=== PATIENT | female | born 1940 | race Caucasian/White ===

== ENCOUNTER 2016-05-01 | Outpatient (CLI) | payer MEDICARE, OTHER | END 2016-05-01 13:02 | disposition critical access hospital (66) | CPT/HCPCS: A0425; A0429 ==

== ENCOUNTER 2016-05-01 13:23 | Emergency (ER) | payer MEDICARE, OTHER ==
[2016-05-01] MEDS ORDERED: diltiaZEM INJ 5 MG/ML VIAL IVP STA (13:35)
[2016-05-01] MEDS ORDERED: PROCAINAMIDE 1,000 MG in SODIUM CHLORIDE 0.9% 240 ML IV STA (13:35)
[2016-05-01] MEDS ORDERED: diltiaZEM INJ 5 MG/ML VIAL ONE (13:45)
== END 2016-05-01 15:32 | disposition home or self-care (01) ==
DX: I48.0 Paroxysmal atrial fibrillation (principal); R47.81 Slurred speech; I25.10 Atherosclerotic heart disease of native coronary artery without angina pectoris; I10 Essential (primary) hypertension; J45.909 Unspecified asthma, uncomplicated; Z79.02 Long term (current) use of antithrombotics/antiplatelets; Z95.5 Presence of coronary angioplasty implant and graft; Z79.82 Long term (current) use of aspirin

== ENCOUNTER 2016-06-03 13:39 | Outpatient (CLI) | payer MEDICARE, OTHER | END 2016-06-03 13:40 | disposition home or self-care (01) | DX: I48.91 Unspecified atrial fibrillation (principal) ==

== ENCOUNTER 2016-06-06 10:16 | Outpatient (CLI) | payer MEDICARE, OTHER | END 2016-06-06 10:17 | disposition home or self-care (01) | DX: I48.91 Unspecified atrial fibrillation (principal) ==

== ENCOUNTER 2016-06-09 09:51 | Outpatient (CLI) | payer MEDICARE, OTHER | END 2016-06-09 09:52 | disposition home or self-care (01) | DX: I48.91 Unspecified atrial fibrillation (principal) ==

== ENCOUNTER 2016-06-22 13:03 | Outpatient (CLI) | payer MEDICARE, OTHER | END 2016-06-22 13:04 | DX: I48.91 Unspecified atrial fibrillation (principal) ==

== ENCOUNTER 2016-06-23 09:25 | Outpatient (CLI) | payer MEDICARE, OTHER | END 2016-06-23 09:26 | disposition home or self-care (01) | DX: I48.91 Unspecified atrial fibrillation (principal) ==

== ENCOUNTER 2016-08-04 08:00 | Outpatient (CLI) | payer MEDICARE, OTHER | END 2016-08-04 23:59 | LOC: LAB.N 08:00 | PROVIDERS: ATTEND Family Medicine | DX: I48.91 Unspecified atrial fibrillation (principal) | CPT/HCPCS: 85610 ==

== ENCOUNTER 2016-08-11 10:24 | Outpatient (CLI) | payer MEDICARE, OTHER | END 2016-08-11 10:25 | disposition home or self-care (01) | DX: E78.5 Hyperlipidemia, unspecified (principal); I10 Essential (primary) hypertension; I48.91 Unspecified atrial fibrillation; I25.10 Atherosclerotic heart disease of native coronary artery without angina pectoris ==

== ENCOUNTER 2016-08-15 08:00 | Outpatient (CLI) | payer MEDICARE, OTHER | END 2016-08-15 08:01 | disposition home or self-care (01) | LOC: LAB.N 08:00 | PROVIDERS: ATTEND Family Medicine | DX: I48.91 Unspecified atrial fibrillation (principal) | CPT/HCPCS: 85610 ==

== ENCOUNTER 2016-08-23 08:00 | Outpatient (CLI) | payer MEDICARE, OTHER | END 2016-08-23 08:01 | disposition home or self-care (01) | LOC: LAB.N 08:00 | PROVIDERS: ATTEND Family Medicine | DX: I48.91 Unspecified atrial fibrillation (principal) | CPT/HCPCS: 85610 ==

== ENCOUNTER 2016-08-26 08:10 | Outpatient (CLI) | payer MEDICARE, OTHER | END 2016-08-26 08:11 | disposition home or self-care (01) | DX: I48.91 Unspecified atrial fibrillation (principal) ==

== ENCOUNTER 2016-09-02 07:49 | Outpatient (CLI) | payer MEDICARE, OTHER | END 2016-09-02 07:50 | disposition home or self-care (01) | LOC: LAB.N 07:49 | PROVIDERS: ATTEND Family Medicine | DX: I48.91 Unspecified atrial fibrillation (principal) | CPT/HCPCS: 85610 ==

== ENCOUNTER 2016-09-09 08:06 | Outpatient (CLI) | payer MEDICARE, OTHER | END 2016-09-09 08:07 | disposition home or self-care (01) | LOC: LAB.N 08:06 | PROVIDERS: ATTEND Family Medicine | DX: I48.91 Unspecified atrial fibrillation (principal) | CPT/HCPCS: 85610 ==

== ENCOUNTER 2016-09-23 07:47 | Outpatient (CLI) | payer MEDICARE, OTHER | END 2016-09-23 07:48 | disposition home or self-care (01) | LOC: LAB.N 07:47 | PROVIDERS: ATTEND Family Medicine | DX: I48.91 Unspecified atrial fibrillation (principal) | CPT/HCPCS: 85610 ==

== ENCOUNTER 2016-10-21 08:40 | Outpatient (CLI) | payer MEDICARE, OTHER | END 2016-10-21 08:41 | disposition home or self-care (01) | LOC: LAB.N 08:40 | PROVIDERS: ATTEND Family Medicine | DX: I48.91 Unspecified atrial fibrillation (principal) | CPT/HCPCS: 85610 ==

== ENCOUNTER 2016-10-28 10:48 | Outpatient (CLI) | payer MEDICARE, OTHER | END 2016-10-28 10:49 | disposition home or self-care (01) | LOC: LAB.N 10:48 | PROVIDERS: ATTEND Family Medicine | DX: I48.91 Unspecified atrial fibrillation (principal) | CPT/HCPCS: 85610 ==

== ENCOUNTER 2016-11-16 08:08 | Outpatient (CLI) | payer MEDICARE, OTHER ==
[2016-11-16 12:23] LABS: BASOPHILS # (AUTO) 0.1 10^3/uL (0.0-0.1); BASOPHILS % (AUTO) 1.1 %; EOSINOPHILS # (AUTO) 0.2 10^3/uL (0.0-0.7); EOSINOPHILS % (AUTO) 3.5 %; HCT - HEMATOCRIT 35.7 % (37.0-47.0); HGB - HEMOGLOBIN 11.5 g/dL (12.0-16.0); LYMPHOCYTES # (AUTO) 0.6 10^3/uL (1.5-3.5); LYMPHOCYTES % (AUTO) 11.2 %; MEAN CORPUSCULAR HEMOGLOBIN 26.8 pg (27.0-31.0); MEAN CORPUSCULAR HGB CONC 32.3 g/dL (32.0-36.0); MEAN CORPUSCULAR VOLUME 82.9 fL (81.0-99.0); MEAN PLATELET VOLUME 8.8 fL (7.9-10.8); MONOCYTES # (AUTO) 0.6 10^3/uL (0.0-1.0); MONOCYTES % (AUTO) 11.4 %; NEUTROPHILS % (AUTO) 72.8 %; RED CELL DISTRIBUTION WIDTH 16.9 % (12.0-15.0); UNCORRECTED WHITE BLOOD COUNT 5.5 x10^3/uL; WHITE BLOOD COUNT 5.5 x10^3/uL (4.8-10.8)
[2016-11-16 12:58] LABS: ALBUMIN/GLOBULIN RATIO 1.4 (1.0-2.2); BILIRUBIN,TOTAL 0.7 mg/dL (0.2-1.0); BUN - BLOOD UREA NITROGEN 25 mg/dL (6-20); CALCIUM 8.9 mg/dL (8.5-10.3); CARBON DIOXIDE - CO2 25 mmol/L (21-32); CHLORIDE 109 mmol/L (101-111); CHOL/HDL RATIO 2.1 (<4.4); CHOLESTEROL 169 mg/dL; CREATININE 1.2 mg/dL (0.4-1.0); GFR - MDRD 43 (>89); GLUCOSE 93 mg/dL (70-100); HDL CHOLESTEROL 82 mg/dL; LDL/HDL RATIO 0.9 (<4.4); POTASSIUM 4.6 mmol/L (3.5-5.0); SODIUM 140 mmol/L (135-145); TOTAL PROTEIN 6.4 g/dL (6.7-8.2); TRIGLYCERIDES 73 mg/dL; VLDL CHOLESTEROL 15 mg/dL
[2016-11-16 13:26] LABS: THYROID STIMULATING HORMONE 18.61 uIU/mL (0.34-5.60)
== END 2016-11-16 08:09 | disposition home or self-care (01) ==
LOC: LAB.N 08:08
PROVIDERS: ATTEND Family Medicine
DX: E78.5 Hyperlipidemia, unspecified (principal)
CPT/HCPCS: 36415; 80053; 80061; 84439; 84443; 85025

== ENCOUNTER 2017-01-06 11:50 | Outpatient (CLI) | payer MEDICARE, OTHER | END 2017-01-06 11:51 | disposition home or self-care (01) | LOC: LAB.N 11:50 | PROVIDERS: ATTEND Family Medicine | DX: I48.91 Unspecified atrial fibrillation (principal) | CPT/HCPCS: 85610 ==

== ENCOUNTER 2017-01-25 14:54 | Outpatient (CLI) | payer MEDICARE, OTHER ==
[2017-01-25 13:50] LABS: ALBUMIN/GLOBULIN RATIO 1.3 (1.0-2.2); BILIRUBIN,TOTAL 0.7 mg/dL (0.2-1.0); BUN - BLOOD UREA NITROGEN 21 mg/dL (6-20); CALCIUM 9.1 mg/dL (8.5-10.3); CARBON DIOXIDE - CO2 25 mmol/L (21-32); CHLORIDE 104 mmol/L (101-111); CHOL/HDL RATIO 1.9 (<4.4); CHOLESTEROL 192 mg/dL; CREATININE 1.4 mg/dL (0.4-1.0); GFR - MDRD 36 (>89); GLUCOSE 81 mg/dL (70-100); HDL CHOLESTEROL 102 mg/dL; LDL/HDL RATIO 0.8 (<4.4); POTASSIUM 3.6 mmol/L (3.5-5.0); SODIUM 139 mmol/L (135-145); TOTAL PROTEIN 6.7 g/dL (6.7-8.2); TRIGLYCERIDES 58 mg/dL; VLDL CHOLESTEROL 12 mg/dL
[2017-01-25 14:58] LABS: THYROID STIMULATING HORMONE 72.21 uIU/mL (0.34-5.60)
== END 2017-01-25 14:55 | disposition home or self-care (01) ==
LOC: LAB.N 14:54
PROVIDERS: ATTEND Family Medicine
DX: E03.9 Hypothyroidism, unspecified (principal); I25.10 Atherosclerotic heart disease of native coronary artery without angina pectoris; I48.91 Unspecified atrial fibrillation
CPT/HCPCS: 36415; 80053; 80061; 84439; 84443; 86800

== ENCOUNTER 2017-02-24 10:04 | Outpatient (CLI) | payer MEDICARE, OTHER | END 2017-02-24 10:05 | disposition home or self-care (01) | LOC: LAB.N 10:04 | PROVIDERS: ATTEND Family Medicine | DX: I48.91 Unspecified atrial fibrillation (principal) | CPT/HCPCS: 85610 ==

== ENCOUNTER 2017-03-31 08:00 | Outpatient (CLI) | payer MEDICARE, OTHER | END 2017-03-31 08:01 | disposition home or self-care (01) | LOC: LAB.N 08:00 | PROVIDERS: ATTEND Family Medicine | DX: E87.6 Hypokalemia (principal); I48.91 Unspecified atrial fibrillation | CPT/HCPCS: 36415; 84132; 85610 ==

== ENCOUNTER 2017-05-11 08:37 | Outpatient (CLI) | payer MEDICARE, OTHER | END 2017-05-11 08:38 | disposition home or self-care (01) | LOC: LAB.N 08:37 | PROVIDERS: ATTEND Family Medicine | DX: I48.91 Unspecified atrial fibrillation (principal) | CPT/HCPCS: 85610 ==

== ENCOUNTER 2017-07-04 08:00 | Outpatient (CLI) | payer MEDICARE, OTHER ==
[2017-07-04 12:22] LABS: BASOPHILS # (AUTO) 0.1 10^3/uL (0.0-0.1); BASOPHILS % (AUTO) 2.4 %; EOSINOPHILS # (AUTO) 0.2 10^3/uL (0.0-0.7); EOSINOPHILS % (AUTO) 4.3 %; HGB - HEMOGLOBIN 10.7 g/dL (12.0-16.0); LYMPHOCYTES # (AUTO) 0.5 10^3/uL (1.5-3.5); LYMPHOCYTES % (AUTO) 13.2 %; MEAN CORPUSCULAR HEMOGLOBIN 26.3 pg (27.0-31.0); MEAN CORPUSCULAR HGB CONC 32.8 g/dL (32.0-36.0); MEAN CORPUSCULAR VOLUME 80.1 fL (81.0-99.0); MEAN PLATELET VOLUME 8.5 fL (7.9-10.8); MONOCYTES # (AUTO) 0.4 10^3/uL (0.0-1.0); MONOCYTES % (AUTO) 11.1 %; NEUTROPHILS # (AUTO) 2.8 10^3/uL (1.5-6.6); PLT - PLATELET COUNT 213 10^3/uL (130-450); RED BLOOD COUNT 4.06 10^6/uL (4.20-5.40); RED CELL DISTRIBUTION WIDTH 18.1 % (12.0-15.0)
[2017-07-04 12:31] LABS: ALBUMIN 3.8 g/dL (3.2-5.5); ALBUMIN/GLOBULIN RATIO 1.4 (1.0-2.2); BILIRUBIN,TOTAL 0.7 mg/dL (0.2-1.0); CALCIUM 8.5 mg/dL (8.5-10.3); CREATININE 1.3 mg/dL (0.4-1.0); TOTAL PROTEIN 6.5 g/dL (6.7-8.2)
== END 2017-07-04 08:01 ==
LOC: LAB.N 08:00
PROVIDERS: ATTEND Family Medicine
DX: E03.9 Hypothyroidism, unspecified (principal); I48.91 Unspecified atrial fibrillation
CPT/HCPCS: 36415; 80053; 84443; 84481; 85025; 85610

== ENCOUNTER 2017-08-09 08:53 | Outpatient (CLI) | payer MEDICARE, OTHER | END 2017-08-09 08:54 | LOC: LAB.N 08:53 | PROVIDERS: ATTEND Family Medicine | DX: I48.91 Unspecified atrial fibrillation (principal) | CPT/HCPCS: 85610 ==

== ENCOUNTER 2017-08-16 09:07 | Outpatient (CLI) | payer MEDICARE, OTHER | END 2017-08-16 09:08 | LOC: LAB.N 09:07 | PROVIDERS: ATTEND Family Medicine | DX: I48.91 Unspecified atrial fibrillation (principal) | CPT/HCPCS: 85610 ==

== ENCOUNTER 2017-09-21 10:39 | Outpatient (CLI) | payer MEDICARE, OTHER | END 2017-09-21 10:40 | disposition home or self-care (01) | LOC: LAB.N 10:39 | PROVIDERS: ATTEND Family Medicine | DX: I48.91 Unspecified atrial fibrillation (principal) | CPT/HCPCS: 85610 ==

== ENCOUNTER 2017-10-04 13:15 | Outpatient (CLI) | payer MEDICARE, OTHER ==
[2017-10-04 19:15] LABS: BASOPHILS # (AUTO) 0.1 10^3/uL (0.0-0.1); BASOPHILS % (AUTO) 1.5 %; EOSINOPHILS # (AUTO) 0.1 10^3/uL (0.0-0.7); EOSINOPHILS % (AUTO) 2.9 %; HGB - HEMOGLOBIN 10.6 g/dL (12.0-16.0); LYMPHOCYTES # (AUTO) 0.5 10^3/uL (1.5-3.5); LYMPHOCYTES % (AUTO) 11.3 %; MEAN CORPUSCULAR HEMOGLOBIN 26.3 pg (27.0-31.0); MEAN CORPUSCULAR HGB CONC 31.4 g/dL (32.0-36.0); MEAN CORPUSCULAR VOLUME 83.7 fL (81.0-99.0); MEAN PLATELET VOLUME 8.8 fL (7.9-10.8); MONOCYTES # (AUTO) 0.5 10^3/uL (0.0-1.0); MONOCYTES % (AUTO) 10.4 %; NEUTROPHILS # (AUTO) 3.3 10^3/uL (1.5-6.6); NEUTROPHILS % (AUTO) 73.9 %; PLT - PLATELET COUNT 238 10^3/uL (130-450); RED BLOOD COUNT 4.02 10^6/uL (4.20-5.40); RED CELL DISTRIBUTION WIDTH 16.8 % (12.0-15.0); WHITE BLOOD COUNT 4.5 x10^3/uL (4.8-10.8)
[2017-10-04 19:42] LABS: ALBUMIN 3.6 g/dL (3.2-5.5); ALBUMIN/GLOBULIN RATIO 1.3 (1.0-2.2); ALKALINE PHOSPHATASE 69 IU/L (42-121); ALT ALANINE AMINOTRANSFERASE 19 IU/L (10-60); AST ASPARTATE AMINOTRANSFERASE 24 IU/L (10-42); BILIRUBIN,TOTAL 0.7 mg/dL (0.2-1.0); BUN - BLOOD UREA NITROGEN 33 mg/dL (6-20); CALCIUM 8.8 mg/dL (8.5-10.3); CARBON DIOXIDE - CO2 25 mmol/L (21-32); CHLORIDE 105 mmol/L (101-111); CHOL/HDL RATIO 1.9 (<4.4); CHOLESTEROL 160 mg/dL; CREATININE 1.4 mg/dL (0.4-1.0); GFR - MDRD 36 (>89); GLUCOSE 85 mg/dL (70-100); HDL CHOLESTEROL 86 mg/dL; LDL CHOLESTEROL,CALCULATED 62 mg/dL; LDL/HDL RATIO 0.7 (<4.4); MAGNESIUM 2.2 mg/dL (1.7-2.8); SODIUM 139 mmol/L (135-145); TOTAL PROTEIN 6.4 g/dL (6.7-8.2); VLDL CHOLESTEROL 12 mg/dL
== END 2017-10-04 13:16 | disposition home or self-care (01) ==
LOC: LAB.N 13:15
PROVIDERS: ATTEND Family Medicine
DX: I48.91 Unspecified atrial fibrillation (principal); E03.9 Hypothyroidism, unspecified; R78.9 Finding of unspecified substance, not normally found in blood; N18.3 Chronic kidney disease, stage 3 (moderate); Z79.01 Long term (current) use of anticoagulants; D68.9 Coagulation defect, unspecified; E87.6 Hypokalemia; I10 Essential (primary) hypertension; E78.5 Hyperlipidemia, unspecified; D50.9 Iron deficiency anemia, unspecified
CPT/HCPCS: 36415; 80053; 80061; 83721; 83735; 84443; 85025; 85610

== ENCOUNTER 2017-10-16 18:22 | Emergency (ER) | payer MEDICARE, OTHER ==
--- NOTE | 2017-10-16 20:14 | CT Report ---
Procedure Date: 10/16/2017 Accession Number: [id number] / [id number] Procedure: CT - Head W/O CPT Code: FULL RESULT: EXAM: CT HEAD EXAM DATE: 10/16/2017 07:54 PM. CLINICAL HISTORY: Head on brick floor, on Coumadin. COMPARISON: CT cervical spine today, CT head 05/01/2016. TECHNIQUE: Multiaxial CT images were obtained from the foramen magnum to the vertex. Reformats: Coronal. IV contrast: None. In accordance with CT protocol optimization, one or more of the following dose reduction techniques were utilized for this exam: automated exposure control, adjustment of mA and/or KV based on patient size, or use of iterative reconstructive technique. FINDINGS: Parenchyma: Mild patchy hypodensity in the bilateral cerebral white matter as before consistent with chronic small vessel ischemic change. No high-density lesions. No mass effect. [place]-white differentiation is intact. Extraaxial Spaces: Mild generalized sulcal prominence. No subdural or epidural collections identified. Ventricles: Mild generalized ventriculomegaly, as before. Sinuses and Orbits: Imaged paranasal sinuses, orbits, and mastoids show no significant abnormality. Bilateral cataract surgery. Bones: No evidence of fracture or calvarial defect. Other: Moderate calcification bilateral cavernous internal carotid arteries. Mild calcification proximal to cranial bilateral vertebral arteries. IMPRESSION: 1. No intracranial hemorrhage. 2. Mild chronic small vessel ischemic change in the bilateral cerebral white matter, as before. RADIA
--- NOTE | 2017-10-16 20:19 | ED Physician Documentation ---
PD HPI HEAD INJURY - Stated complaint Stated Complaint: HEAD LAC/GLF - Chief complaint Chief Complaint: General - History obtained from History obtained from: Patient, Family - History of Present Illness Mechanism of head injury: Fell Where head injury occurred: Home Timing - onset: Today Location of injury: Right Quality of pain: Pain, Throbbing Associated symptoms: Neck pain. No: LOC, AMS, Amnesia, Nausea / vomiting, Paresthesias, Seizures, Ear drainage, Nasal drainage Symptoms improve with: Rest, Position Symptoms worsen with: Palpation, Movement Contributing factors: Anticoagulated Similar symptoms before: Diagnosis (collapse with GI bleeding) Recently seen: Surgery - Additional information Additional information: 77 year old female with a history of Atrial fibrillation who is on Coumadin was outside watering the lawn she tripped over the hose fell forward and struck her forehead on brick. She has a small laceration and she is complaining of some pain in her neck. She has been in the emergency department now for about 2 hours and is complaining of some dizziness as well. She is arrives here today with her daughter and they indicate the patient has had oral surgery done 3 days ago and she has not been eating or drinking as much as she normally does. They are concerned about the possibility of dehydration. Patient otherwise states that she has been taking her medications and she was off of her Coumadin for the surgical procedure. She takes her Coumadin at night. Review of Systems Constitutional: denies: Fever Eyes: denies: Decreased vision Ears: denies: Ear pain Nose: denies: Congestion Throat: denies: Sore throat Cardiac: denies: Chest pain / pressure, Palpitations Respiratory: reports: Cough GI: denies: Nausea, Vomiting : denies: Dysuria, Frequency Musculoskeletal: reports: Neck pain. denies: Back pain, Extremity pain Neurologic: reports: Head injury. denies: Generalized weakness, Focal weakness , Numbness, Confused, Altered mental status, LOC PD PAST MEDICAL HISTORY - Past Medical History Cardiovascular: Hypertension, Coronary artery disease Respiratory: Asthma Endocrine/Autoimmune: Other Psych: Anxiety, Eating disorder Musculoskeletal: Osteoarthritis, Rheumatoid arthritis - Past Surgical History Past Surgical History: Yes General: Bowel surgery Ortho: Knee replacement /HOOKER OFF: Hysterectomy Cardiovascular: Coronary stent - Present Medications Home Medications: Ambulatory Orders Medication Instructions Recorded Confirmed Fluticasone [Flonase] 1 spray TYRONE DAILY PRN 06/05/14 07/10/14 Hydroxychloroquine [Plaquenil] 200 mg PO DAILY 06/05/14 07/10/14 Isosorbide Dinitrate 30 mg PO BID 06/05/14 07/10/14 Potassium Chloride 50 meq PO DAILY 06/05/14 07/10/14 Simvastatin 20 mg PO QPM 06/05/14 07/10/14 amLODIPine [Norvasc] 2.5 mg PO DAILY 06/05/14 01/28/17 Calc/D3/Mag/Zn/Zayra/Sean/[place] 1 tab PO DAILY PRN 06/30/14 07/10/14 [Calcium 600 mg Plus Vit D Tab] Nitroglycerin 0.4 mg SL ONCE PRN 06/30/14 07/10/14 Warfarin [Coumadin] 1.5 mg PO DAILY 01/28/17 01/28/17 Amiodarone [Pacerone] 10/16/17 Levothyroxine Sodium 10/16/17 Metoprolol Succinate 10/16/17 Sulfamethoxazole/Trimethoprim 1 each PO BID #14 tablet 10/16/17 [Sulfamethoxazole-Tmp Ds Tablet] - Allergies Allergies/Adverse Reactions: Allergies Allergy/AdvReac Type Severity Reaction Status Date / Time Penicillins Allergy Anaphylaxis Verified 10/16/17 18:28 shellfish derived Allergy Hives Verified 10/16/17 18:28 tree nut Allergy Respiratory Verified 10/16/17 18:28 codeine AdvReac Hallucinati Verified 10/16/17 18:28 ons bleach AdvReac Respiratory Uncoded 01/28/17 13:59 - Social History Does the pt smoke?: No Smoking Status: Never smoker Does the pt drink ETOH?: No Does the pt have substance abuse?: No - Immunizations Immunizations are current?: No Immunizations: TDAP >10years/unknown - POLST Patient has POLST: Yes PD ED PE NORMAL - Vitals Vital signs reviewed: Yes (normal ) - General General: Alert and oriented X 3, No acute distress, Well developed/nourished - HEENT HEENT: PERRL, EOMI, Other (There is a 1.5cm laceration to the right religious without crepitance. The mucous membranes are dry. 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, No motor deficit, No sensory deficit, Normal speech Eye Opening: Spontaneous Motor: Obeys Commands Verbal: Oriented GCS Score: 15 - Psych Psych: Normal mood, Normal affect Results - Vitals Vitals: Vital Signs - 24 hr 10/16/17 10/16/17 10/16/17 18:26 20:22 21:30 Temperature 37.3 C Heart Rate 64 53 L 60 Respiratory 18 16 17 Rate Blood Pressure 129/69 151/85 H 151/94 H O2 Saturation 96 96 100 10/16/17 10/16/17 22:51 22:56 Temperature 36.7 C Heart Rate 58 L Respiratory 17 Rate Blood Pressure 144/90 H O2 Saturation 97 Oxygen O2 Source [] Room air O2 Source Room air - Labs Labs: Laboratory Tests 10/16/17 10/16/17 10/16/17 18:50 20:32 20:32 WBC 4.6 L RBC 3.93 L Hgb 10.5 L Hct 32.6 L MCV 83.1 MCH 26.7 L MCHC 32.2 RDW 16.9 H Plt Count 241 MPV 7.5 L Neut # (Auto) 3.3 Lymph # (Auto) 0.5 L [place] # (Auto) 0.6 Eos # (Auto) 0.2 Baso # (Auto) 0.1 Absolute Nucleated RBC 0.00 Nucleated RBC % 0.1 Whole Blood INR 1.2 Sodium 139 Potassium 3.3 L Chloride 107 Carbon Dioxide 22 Anion Gap 10.0 BUN 30 H Creatinine 1.8 H Estimated GFR (MDRD) 27 L Glucose 102 H Calcium 8.6 Total Bilirubin 0.8 AST 22 ALT 19 Alkaline Phosphatase 61 Total Protein 6.6 L Albumin 3.8 Globulin 2.8 Albumin/Globulin Ratio 1.4 Lipase 32 Urine Color Urine Clarity Urine pH Ur Specific [place] Urine Protein Urine Glucose (UA) Urine Ketones Urine Occult Blood Urine Nitrite Urine Bilirubin Urine Urobilinogen Ur Leukocyte Esterase Urine RBC Urine WBC Ur Squamous Epith Cells Urine Bacteria Ur Microscopic Review Urine Culture Comments 07/23/18 21:36 WBC RBC Hgb Hct MCV MCH MCHC RDW Plt Count MPV Neut # (Auto) Lymph # (Auto) [place] # (Auto) Eos # (Auto) Baso # (Auto) Absolute Nucleated RBC Nucleated RBC % Whole Blood INR Sodium Potassium Chloride Carbon Dioxide Anion Gap BUN Creatinine Estimated GFR (MDRD) Glucose Calcium Total Bilirubin AST ALT Alkaline Phosphatase Total Protein Albumin Globulin Albumin/Globulin Ratio Lipase Urine Color DARK YELLOW Urine Clarity CLEAR Urine pH 5.5 Ur Specific [place] >=1.030 H Urine Protein TRACE Urine Glucose (UA) NEGATIVE Urine Ketones NEGATIVE Urine Occult Blood TRACE-LYSE Urine Nitrite NEGATIVE Urine Bilirubin NEGATIVE Urine Urobilinogen 0.2 (NORMAL) Ur Leukocyte Esterase TRACE H Urine RBC 11-25 H Urine WBC 11-25 H Ur Squamous Epith Cells RARE Squamous Urine Bacteria None Seen Ur Microscopic Review INDICATED Urine Culture Comments INDICATED - Rads (name of study) CT head without Radiology: Prelim report reviewed (Impression: 1. No intracranial hemorrhage. Mild chronic small vessel ischemic change in the bilateral cerebral white matter , as before.), EMP read indepedently, See rad report CT cervical spine Radiology: Prelim report reviewed (Impression: No fracture or subluxation of the cervical spine. Moderate multilevel degenerative changes as detailed above. ), EMP read indepedently, See rad report Procedures - Laceration (location) scalp Length in cm: 1.5 Wound type: Linear, Clean Neurovascular status: Sensory intact, Motor intact, Vascular intact Anesthesia: Lidocaine 1%, With bicarb Wound Preparation: Hibiclens, Irrigated copiously NS, Wound explored, To the base Skin layer closure: Ifeoma (2) Other: Patient tolerated well, No complications, Neurovascular intact, Dressing applied, Tetanus UTD Complexity: Simple - IVC sono (time) 2024 Bedside IVC sono: IVC measures (cm) (1.09), IVC collapsed c insp (cm) (complete) , Dehydration (est 1.5 liter deficit) PD MEDICAL DECISION MAKING - ED course Complexity details: reviewed results, re-evaluated patient, considered differential, d/w patient, d/w family ED course: 77-year-old female with a collapse at home after tripping on a garden hose has a small laceration to her religious. She has had recent oral surgery and is mildly dehydrated. An IV is begun she is given normal saline. She is found to have UTI as well and she is given oral sulfa. She is hypokalemic and given PO potassium bicarbonate. At the conclusion of the visit the patient is feeling improved. - Sepsis Event Vital Signs: Vital Signs - 24 hr 10/16/17 10/16/17 10/16/17 18:26 20:22 21:30 Temperature 37.3 C Heart Rate 64 53 L 60 Respiratory 18 16 17 Rate Blood Pressure 129/69 151/85 H 151/94 H O2 Saturation 96 96 100 10/16/17 10/16/17 22:51 22:56 Temperature 36.7 C Heart Rate 58 L Respiratory 17 Rate Blood Pressure 144/90 H O2 Saturation 97 Oxygen O2 Source [] Room air O2 Source Room air Departure - Departure Disposition: 01 Home, Self Care Clinical Impression: Dehydration Head injury Qualifiers: Encounter type: initial encounter Qualified Code(s): S09.90XA - Unspecified injury of head, initial encounter Scalp laceration Qualifiers: Encounter type: initial encounter Qualified Code(s): S01.01XA - Laceration without foreign body of scalp, initial encounter Urinary tract infection Qualifiers: Urinary tract infection type: acute cystitis Hematuria presence: with hematuria Qualified Code(s): N30.01 - Acute cystitis with hematuria Condition: Stable Instructions: ED Dehydration, ED Head Injury Closed, ED Laceration Scalp Stitch Or Stap, ED UTI Cystitis Female Follow-Up: Jane Camacho MD [Primary Care Provider] - Prescriptions: Sulfamethoxazole/Trimethoprim [Sulfamethoxazole-Tmp Ds Tablet] 1 each PO BID # 14 tablet Discharge Date/Time: 10/16/17 23:06
--- NOTE | 2017-10-16 20:20 | CT Report ---
Procedure Date: 10/16/2017 Accession Number: [id number] / [id number] Procedure: CT - Cervical Spine W/O CPT Code: FULL RESULT: EXAM: CT CERVICAL SPINE WITHOUT CONTRAST DATE: 10/16/2017 07:55 PM. HISTORY: Fell, hit head. COMPARISONS: CT head today. TECHNIQUE: Thin-section axial images were acquired of the cervical spine without contrast. Post-processing: Coronal and sagittal reformats. Other: None. In accordance with CT protocol optimization, one or more of the following dose reduction techniques were utilized for this exam: automated exposure control, adjustment of mA and/or KV based on patient size, or use of iterative reconstructive technique. FINDINGS: Alignment: Minimal left convex cervical spine curvature. No subluxation. Bones: No fracture or focal bone lesion from the craniocervical junction through T1-T2 (excluding the mid to peripheral T1 spinous process which is excluded from the [id number]). Interspace Levels/Facets: Mild osteoarthritis of the pre-dens interval. Disk height loss and endplate osteophyte formation indicating degenerative disk disease which is minimal at C2-C3, mild at C3-C4 and C4-C5, moderate at C5-C6, mild at C6-C7, moderate at T1-T2. There is multilevel bilateral facet and uncovertebral joint hypertrophy. There is bony foraminal stenosis which is moderate on the left at C2-C3, moderate bilaterally at C3-C4, mild on the right and moderate on the left at C4-C5, moderate bilaterally at C5-C6. Musculature: Normal. No fatty atrophy. Other: The paravertebral and prevertebral soft tissues are unremarkable. The lung apices are clear. There is moderate bilateral carotid bulb calcification. IMPRESSION: 1. No fracture or subluxation the cervical spine. 2. Moderate multilevel degenerative change as detailed above. RADIA
[2017-10-16 20:38] LABS: BASOPHILS # (AUTO) 0.1 10^3/uL (0.0-0.1); BASOPHILS % (AUTO) 1.8 %; EOSINOPHILS # (AUTO) 0.2 10^3/uL (0.0-0.7); EOSINOPHILS % (AUTO) 3.5 %; HGB - HEMOGLOBIN 10.5 g/dL (12.0-16.0); LYMPHOCYTES # (AUTO) 0.5 10^3/uL (1.5-3.5); LYMPHOCYTES % (AUTO) 10.2 %; MEAN CORPUSCULAR HEMOGLOBIN 26.7 pg (27.0-31.0); MEAN CORPUSCULAR HGB CONC 32.2 g/dL (32.0-36.0); MEAN CORPUSCULAR VOLUME 83.1 fL (81.0-99.0); MEAN PLATELET VOLUME 7.5 fL (7.9-10.8); MONOCYTES # (AUTO) 0.6 10^3/uL (0.0-1.0); MONOCYTES % (AUTO) 12.8 %; NEUTROPHILS # (AUTO) 3.3 10^3/uL (1.5-6.6); NEUTROPHILS % (AUTO) 71.7 %; PLT - PLATELET COUNT 241 10^3/uL (130-450); RED BLOOD COUNT 3.93 10^6/uL (4.20-5.40); RED CELL DISTRIBUTION WIDTH 16.9 % (12.0-15.0); WHITE BLOOD COUNT 4.6 x10^3/uL (4.8-10.8)
[2017-10-16 20:48] LABS: ALBUMIN 3.8 g/dL (3.2-5.5); ALBUMIN/GLOBULIN RATIO 1.4 (1.0-2.2); BILIRUBIN,TOTAL 0.8 mg/dL (0.2-1.0); CALCIUM 8.6 mg/dL (8.5-10.3); CREATININE 1.8 mg/dL (0.4-1.0); TOTAL PROTEIN 6.6 g/dL (6.7-8.2)
[2017-10-16] MEDS: BUFFERED LIDOCAINE 10 ML SYRINGE SUBQ STA (20:51)
[2017-10-16] MEDS: SODIUM CHLORIDE 0.9% 1,500 ML IV ONE (20:54)
[2017-10-16 22:07] LABS: BILIRUBIN,URINE NEGATIVE (NEGATIVE); GLUCOSE, URINE (UA) NEGATIVE (NEGATIVE); KETONES,URINE (UA) NEGATIVE (NEGATIVE); LEUKOCYTE ESTERASE, URINE TRACE (NEGATIVE); NITRITE,URINE NEGATIVE (NEGATIVE); OCCULT BLOOD,URINE TRACE-LYSE (NEGATIVE); PH,URINE 5.5 PH (5.0-7.5); PROTEIN,URINE TRACE mg/dL (NEGATIVE); UROBILINOGEN,URINE 0.2 (NORMAL) E.U./dL (NORMAL)
[2017-10-16 22:10] LABS: CLARITY,URINE CLEAR (CLEAR)
[2017-10-16 22:15] LABS: BACTERIA,URINE None Seen /HPF (None Seen); SQUAMOUS EPITHELIAL CELL,UR RARE Squamous (<= Few)
[2017-10-16] MEDS: POTASSIUM BICARB 25 MEQ TABLET PO STA (22:21)
[2017-10-16 22:57] VITALS: BP 144/90
[2017-10-16] MEDS: SULFAM/TRIM 800/160 Prepack 2 PO ONE (22:58)
[2017-10-16] MEDS: SULFAMETH/TRIMETH DS 800/160 MG TABLET PO STA (23:01)
== END 2017-10-16 23:06 | disposition home or self-care (01) ==
LOC: ED 18:22
DX: S01.01XA Laceration without foreign body of scalp, initial encounter (principal); S09.90XA Unspecified injury of head, initial encounter; M54.2 Cervicalgia; W01.198A Fall on same level from slipping, tripping and stumbling with subsequent striking against other object, initial encounter; Y93.H2 Activity, gardening and landscaping; Y92.007 Garden or yard of unspecified non-institutional (private) residence as the place of occurrence of the external cause; N30.01 Acute cystitis with hematuria; E86.0 Dehydration; E87.6 Hypokalemia; Z98.818 Other dental procedure status; I10 Essential (primary) hypertension; I48.91 Unspecified atrial fibrillation; Z79.01 Long term (current) use of anticoagulants
CPT/HCPCS: 12001; 36415; 70450; 72125; 80053; 81001; 83690; 85025; 85610; 87086; 96360; 99283; 99284; A9270; 81003

== ENCOUNTER 2017-10-23 13:32 | Outpatient (CLI) | payer MEDICARE, OTHER | END 2017-10-23 13:33 | disposition home or self-care (01) | LOC: LAB.N 13:32 | PROVIDERS: ATTEND Family Medicine | DX: I48.91 Unspecified atrial fibrillation (principal) | CPT/HCPCS: 85610 ==

== ENCOUNTER 2017-11-02 12:45 | Outpatient (CLI) | payer MEDICARE, OTHER | END 2017-11-02 12:46 | LOC: LAB.N 12:45 | PROVIDERS: ATTEND Family Medicine | DX: N39.0 Urinary tract infection, site not specified (principal) | CPT/HCPCS: 87086 ==

== ENCOUNTER → 2017-11-22 | Outpatient (CLI) | payer MEDICARE, OTHER | LOC: LAB.N 08:00 | PROVIDERS: ATTEND Family Medicine | DX: I48.91 Unspecified atrial fibrillation (principal) | CPT/HCPCS: 85610 ==

== ENCOUNTER 2017-12-01 14:20 | Outpatient (CLI) | payer MEDICARE, OTHER | END 2017-12-01 14:21 | disposition home or self-care (01) | LOC: LAB 14:20 | PROVIDERS: ATTEND Family Medicine | DX: I48.91 Unspecified atrial fibrillation (principal) | CPT/HCPCS: 85610 ==

== ENCOUNTER 2017-12-08 10:23 | Outpatient (CLI) | payer MEDICARE, OTHER | END 2017-12-08 10:24 | disposition home or self-care (01) | LOC: LAB 10:23 | PROVIDERS: ATTEND Family Medicine | DX: I48.91 Unspecified atrial fibrillation (principal) | CPT/HCPCS: 85610 ==

== ENCOUNTER 2017-12-25 13:27 | Outpatient (CLI) | payer MEDICARE, OTHER | END 2017-12-25 13:28 | disposition home or self-care (01) | LOC: LAB 13:27 | PROVIDERS: ATTEND Family Medicine | DX: I48.91 Unspecified atrial fibrillation (principal) | CPT/HCPCS: 85610 ==

== ENCOUNTER 2018-01-01 08:00 | Outpatient (CLI) | payer MEDICARE, OTHER | END 2018-01-01 08:01 | LOC: LAB.N 08:00 | PROVIDERS: ATTEND Family Medicine | DX: I48.91 Unspecified atrial fibrillation (principal) | CPT/HCPCS: 85610 ==

== ENCOUNTER 2018-01-08 07:49 | Outpatient (CLI) | payer MEDICARE, OTHER ==
[2018-01-08 12:55] LABS: BASOPHILS # (AUTO) 0.1 10^3/uL (0.0-0.1); BASOPHILS % (AUTO) 1.2 %; EOSINOPHILS # (AUTO) 0.3 10^3/uL (0.0-0.7); EOSINOPHILS % (AUTO) 3.9 %; HGB - HEMOGLOBIN 13.1 g/dL (12.0-16.0); LYMPHOCYTES # (AUTO) 0.7 10^3/uL (1.5-3.5); LYMPHOCYTES % (AUTO) 9.6 %; MEAN CORPUSCULAR HEMOGLOBIN 27.9 pg (27.0-31.0); MEAN CORPUSCULAR HGB CONC 32.8 g/dL (32.0-36.0); MEAN PLATELET VOLUME 8.6 fL (7.9-10.8); MONOCYTES # (AUTO) 0.7 10^3/uL (0.0-1.0); MONOCYTES % (AUTO) 9.2 %; NEUTROPHILS # (AUTO) 5.6 10^3/uL (1.5-6.6); NEUTROPHILS % (AUTO) 76.1 %; PLT - PLATELET COUNT 283 10^3/uL (130-450); RED BLOOD COUNT 4.69 10^6/uL (4.20-5.40); RED CELL DISTRIBUTION WIDTH 16.4 % (12.0-15.0); WHITE BLOOD COUNT 7.3 x10^3/uL (4.8-10.8)
[2018-01-08 13:00] LABS: ALBUMIN 4.2 g/dL (3.2-5.5); ALBUMIN/GLOBULIN RATIO 1.4 (1.0-2.2); CALCIUM 9.7 mg/dL (8.5-10.3); CREATININE 1.7 mg/dL (0.4-1.0); TOTAL PROTEIN 7.2 g/dL (6.7-8.2)
[2018-01-08 13:18] LABS: THYROID STIMULATING HORMONE 3.31 uIU/mL (0.34-5.60)
[2018-01-08 13:20] LABS: FREE T4 (FREE THYROXINE) 2.73 ng/dL (0.58-1.64)
== END 2018-01-08 07:50 | disposition home or self-care (01) ==
LOC: LAB.N 07:49
PROVIDERS: ATTEND Family Medicine
DX: E03.9 Hypothyroidism, unspecified (principal); I10 Essential (primary) hypertension; I48.91 Unspecified atrial fibrillation
CPT/HCPCS: 36415; 80053; 84439; 84443; 85025; 85610

== ENCOUNTER 2018-01-15 13:00 | Outpatient (CLI) | payer MEDICARE, OTHER | END 2018-01-15 13:01 | disposition home or self-care (01) | LOC: LAB.N 13:00 | PROVIDERS: ATTEND Family Medicine | DX: I48.91 Unspecified atrial fibrillation (principal) | CPT/HCPCS: 85610 ==

== ENCOUNTER 2018-01-23 09:48 | Outpatient (CLI) | payer MEDICARE, OTHER | END 2018-01-23 09:49 | disposition home or self-care (01) | LOC: LAB.N 09:48 | PROVIDERS: ATTEND Family Medicine | DX: I48.91 Unspecified atrial fibrillation (principal) | CPT/HCPCS: 85610 ==

== ENCOUNTER 2018-02-01 09:59 | Outpatient (CLI) | payer MEDICARE, OTHER ==
[2018-02-01 10:27] LABS: INR 1.8 (0.8-1.2); PT - PROTHROMBIN TIME 19.9 secs (9.9-12.6)
== END 2018-02-01 10:00 | disposition home or self-care (01) ==
LOC: LAB 09:59
PROVIDERS: ATTEND Family Medicine
DX: I48.91 Unspecified atrial fibrillation (principal)
CPT/HCPCS: 36415; 85610

== ENCOUNTER 2018-02-08 09:14 | Outpatient (CLI) | payer MEDICARE, OTHER ==
[2018-02-08 14:03] LABS: INR 1.4 (0.8-1.2); PT - PROTHROMBIN TIME 15.1 secs (9.9-12.6)
== END 2018-02-08 09:15 ==
LOC: LAB.N 09:14
PROVIDERS: ATTEND Family Medicine
DX: I48.91 Unspecified atrial fibrillation (principal)
CPT/HCPCS: 36415; 85610

== ENCOUNTER 2018-02-16 11:43 | Outpatient (CLI) | payer MEDICARE, OTHER | END 2018-02-16 11:44 | disposition home or self-care (01) | LOC: LAB.N 11:43 | PROVIDERS: ATTEND Family Medicine | DX: I48.91 Unspecified atrial fibrillation (principal) | CPT/HCPCS: 85610 ==

== ENCOUNTER 2018-02-17 13:11 | Outpatient (CLI) | payer MEDICARE, OTHER | END 2018-02-17 13:12 | disposition critical access hospital (66) | LOC: EMS 13:11 | PROVIDERS: ATTEND Surgery | DX: R03.0 Elevated blood-pressure reading, without diagnosis of hypertension (principal); H53.8 Other visual disturbances | CPT/HCPCS: A0425; A0429 ==

== ENCOUNTER 2018-02-17 13:31 | Inpatient (IN) | payer MEDICARE, OTHER ==
[2018-02-17] MEDS ORDERED: ACETAMINOPHEN 325 MG TABLET PO STA (13:58)
[2018-02-17] MEDS ORDERED: METOPROLOL 5 MG/5 ML VIAL IVP STA (13:58)
--- NOTE | 2018-02-17 14:00 | ED Physician Documentation ---
History of Present Illness - Stated complaint Stated Complaint: HTN - Additonal information Additional information: hx from pt 77 f PMD Doug cardio Dr Alfonso s/p LAD stent 2012 and 2013 no prior CHF on lopressor isosorbide, amio among others to ED today because her BP has been high for 2 days with a HERNÁNDEZ and blurry vision (no field cut loss of vision double vision) and she has been cough and legs swollen Review of Systems Constitutional: denies: Fever Eyes: denies: Loss of vision, Decreased vision (blurry) Cardiac: denies: Chest pain / pressure Respiratory: reports: Dyspnea, Cough GI: denies: Vomiting, Diarrhea Musculoskeletal: reports: Extremity swelling Endocrine: denies: Easy bruising / bleeding Immunocompromised: denies: Immunocompromised PD PAST MEDICAL HISTORY - Past Medical History Cardiovascular: Hypertension, Coronary artery disease Respiratory: Asthma Endocrine/Autoimmune: Other GI: GI bleed, Ulcers HEENT: Chronic vision loss, Macular degeneration Psych: Anxiety, Eating disorder Musculoskeletal: Osteoarthritis, Rheumatoid arthritis - Past Surgical History Past Surgical History: Yes General: Bowel surgery Ortho: Knee replacement /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: Hysterectomy Cardiovascular: Coronary stent - Present Medications Home Medications: Ambulatory Orders Medication Instructions Recorded Confirmed Potassium Chloride 50 meq PO DAILY 06/05/14 07/10/14 Simvastatin 20 mg PO QPM 06/05/14 07/10/14 Nitroglycerin 0.4 mg SL ONCE PRN 06/30/14 07/10/14 Amiodarone [Pacerone] 10/16/17 Levothyroxine Sodium 10/16/17 Metoprolol Succinate 10/16/17 Cholecalciferol (Vitamin D3) 6,000 units PO DAILY 02/17/18 02/17/18 [Vitamin D3] Hydroxychloroquine Sulfate 200 mg PO DAILY 02/17/18 02/17/18 Isosorbide Mononitrate [Isosorbide 30 mg PO DAILY 02/17/18 02/17/18 Mononitrate ER] Omeprazole 40 mg PO QDAC 02/17/18 02/17/18 Warfarin Sodium 1.5 mg PO DAILY 02/17/18 02/17/18 - Allergies Allergies/Adverse Reactions: Allergies Allergy/AdvReac Type Severity Reaction Status Date / Time Penicillins Allergy Anaphylaxis Verified 10/16/17 18:28 shellfish derived Allergy Hives Verified 10/16/17 18:28 tree nut Allergy Respiratory Verified 10/16/17 18:28 codeine AdvReac Hallucinati Verified 10/16/17 18:28 ons bleach AdvReac Respiratory Uncoded 01/28/17 13:59 - Social History Does the pt smoke?: No Smoking Status: Never smoker Does the pt drink ETOH?: No Does the pt have substance abuse?: No - Immunizations Immunizations are current?: No Immunizations: TDAP >10years/unknown - POLST Patient has POLST: Yes PD ED PE NORMAL - Vitals Vital signs reviewed: Yes - General General: Alert and oriented X 3 - HEENT HEENT: PERRL, EOMI, Other (pupils contricted limits fundiscopic eval) - Cardiac Cardiac: RRR - Respiratory Respiratory: No respiratory distress - Derm Derm: Normal color - Extremities Extremities: Other (mild pitting edema) - Neuro Neuro: Alert and oriented X 3, 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, No motor deficit, No sensory deficit, Normal speech, Other (nl neuro other than blurry vision NIHSS zero) Results - Vitals Vitals: Vital Signs - 24 hr 02/17/18 02/17/18 14:00 14:53 Temperature 36.6 C Heart Rate 76 62 Respiratory 16 18 Rate Blood Pressure 201/106 H 196/90 H O2 Saturation 94 100 Oxygen O2 Source [With Activity] Room air O2 Source Room air - EKG (time done) 1412 Rate: Rate (enter#) (64) Rhythm: NSR Ischemia: Other (ST elev V2 onlcy concave up and atypical for ischemia, flat T waves laterally) - Labs Labs: Laboratory Tests 02/17/18 02/17/18 02/17/18 14:00 14:00 14:00 WBC 7.8 RBC 4.13 L Hgb 12.0 Hct 35.2 L MCV 85.1 MCH 28.9 MCHC 34.0 RDW 14.8 Plt Count 207 MPV 7.0 L Neut # (Auto) 6.6 Lymph # (Auto) 0.3 L Adams # (Auto) 0.6 Eos # (Auto) 0.2 Baso # (Auto) 0.0 Absolute Nucleated RBC 0.00 Nucleated RBC % 0.0 PT INR Sodium 139 Potassium 4.1 Chloride 105 Carbon Dioxide 26 Anion Gap 8.0 BUN 28 H Creatinine 1.4 H Estimated GFR (MDRD) 36 L Glucose 109 H Calcium 8.9 Troponin I < 0.04 B-Natriuretic Peptide 02/17/18 02/17/18 14:00 14:00 WBC RBC Hgb Hct MCV MCH MCHC RDW Plt Count MPV Neut # (Auto) Lymph # (Auto) [place] # (Auto) Eos # (Auto) Baso # (Auto) Absolute Nucleated RBC Nucleated RBC % PT 19.6 H INR 1.8 H Sodium Potassium Chloride Carbon Dioxide Anion Gap BUN Creatinine Estimated GFR (MDRD) Glucose Calcium Troponin I B-Natriuretic Peptide 796 H - Rads (name of study) CXR Radiology: See rad report (court small effusions edema CHF and cardiomegaly) CTH Radiology: See rad report (no acute) PD MEDICAL DECISION MAKING - ED course ED course: renal insuff not new INR subtherapeutic HERNÁNDEZ and blurry vision - CT neg for acute process also new edema and cough and rales on exam and CHF on CXR and elev BNP no hx same trop neg after sx for several days which is reassuring but as this is new onset may merit obs admit for echo and med management also could be 2/2 unctrolled HTN now causing end organ damage gave lopressor and lasix already on isosorbide called hospitalist at 1515 Departure - Departure Disposition: ED Place in Observation Clinical Impression: Malignant hypertension, Renal insufficiency CHF (congestive heart failure) Qualifiers: Heart failure type: unspecified Heart failure chronicity: acute Qualified Code(s): I50.9 - Heart failure, unspecified Condition: Fair
[2018-02-17 14:10] LABS: BASOPHILS % (AUTO) 0.6 %; EOSINOPHILS # (AUTO) 0.2 10^3/uL (0.0-0.7); LYMPHOCYTES # (AUTO) 0.3 10^3/uL (1.5-3.5); LYMPHOCYTES % (AUTO) 3.5 %; MEAN CORPUSCULAR HEMOGLOBIN 28.9 pg (27.0-31.0); MEAN CORPUSCULAR VOLUME 85.1 fL (81.0-99.0); MONOCYTES # (AUTO) 0.6 10^3/uL (0.0-1.0); MONOCYTES % (AUTO) 8.2 %; NEUTROPHILS # (AUTO) 6.6 10^3/uL (1.5-6.6); NEUTROPHILS % (AUTO) 85.7 %; PLT - PLATELET COUNT 207 10^3/uL (130-450); RED BLOOD COUNT 4.13 10^6/uL (4.20-5.40); RED CELL DISTRIBUTION WIDTH 14.8 % (12.0-15.0); WHITE BLOOD COUNT 7.8 x10^3/uL (4.8-10.8)
[2018-02-17 14:24] LABS: CALCIUM 8.9 mg/dL (8.5-10.3); CREATININE 1.4 mg/dL (0.4-1.0)
[2018-02-17 14:33] LABS: INR 1.8 (0.8-1.2); PT - PROTHROMBIN TIME 19.6 secs (9.9-12.6)
--- NOTE | 2018-02-17 14:45 | XRAY Report ---
Reason: soa Procedure Date: 02/17/2018 Accession Number: [id number] / [id number] Procedure: XR - Chest 2 View X-Ray CPT Code: 82362 FULL RESULT: EXAM: CHEST RADIOGRAPHY EXAM DATE: 02/17/2018 02:26 PM. CLINICAL HISTORY: Soa. COMPARISON: One view 05/01/2016. TECHNIQUE: 2 views. FINDINGS: Lungs/Pleura: Mild increased vascular and interstitial prominence and some peribronchial thickening. No focal consolidation. Evidence of small posterior bilateral pleural effusions. Mediastinum: Mild cardiac prominence. Other: None. IMPRESSION: Mild cardiac prominence, small bilateral pleural effusions and increased vascular and interstitial prominence which may represent CHF and mild interstitial edema. RADIA
--- NOTE | 2018-02-17 14:54 | CT Report ---
Reason: HERNÁNDEZ blurry vision coumadin Procedure Date: 02/17/2018 Accession Number: [id number] / [id number] Procedure: CT - Head W/O CPT Code: FULL RESULT: EXAM: CT HEAD EXAM DATE: 02/17/2018 02:37 PM. CLINICAL HISTORY: HERNÁNDEZ blurry vision coumadin. COMPARISON: 10/16/2017. TECHNIQUE: Multiaxial CT images were obtained from the foramen magnum to the vertex. Reformats: Sagittal and coronal. IV contrast: None. In accordance with CT protocol optimization, one or more of the following dose reduction techniques were utilized for this exam: automated exposure control, adjustment of mA and/or KV based on patient size, or use of iterative reconstructive technique. FINDINGS: Parenchyma: No intraparenchymal hemorrhage. No evidence of mass, midline shift, or CT findings of acute infarction. [place]-white differentiation is distinct. Diffuse chronic microangiopathic white matter changes are evident. Extraaxial Spaces: Normal for age. No subdural or epidural collections identified. Ventricles: The ventricles and cortical sulci are enlarged, consistent with age-related tissue loss. Sinuses and orbits: Imaged paranasal sinuses, orbits, and mastoids show no significant abnormality. Bones: No evidence of fracture or calvarial defect. Other: None. IMPRESSION: Generalized age-related cortical atrophic changes without evidence of acute intracranial abnormality or interval change. RADIA
[2018-02-17] MEDS ORDERED: FUROSEMIDE 40 MG/4 ML VIAL IVP STA (15:15)
[2018-02-17] MEDS ORDERED: SODIUM CHLORIDE FLUSH 0.9% 10 ML SYRINGE IVP PRN (16:20)
[2018-02-17] MEDS ORDERED: HYDROmorphone 0.5 MG/0.5 ML SYRINGE IVP PRN (16:20)
[2018-02-17] MEDS ORDERED: MORPHINE 2 MG/ML CARPUJECT IVP PRN (16:20)
[2018-02-17] MEDS ORDERED: PROCHLORPERAZINE 10 MG/2 ML VIAL IVP PRN (16:20)
[2018-02-17] MEDS ORDERED: ACETAMINOPHEN 325 MG TABLET PO PRN (16:20)
[2018-02-17] MEDS ORDERED: NITROGLYCERIN SL 0.4 MG TABLET SL PRN (16:27)
[2018-02-17 16:58] LABS: ALBUMIN 3.7 g/dL (3.2-5.5); BILIRUBIN,DIRECT 0.2 mg/dL (0.1-0.5); BILIRUBIN,TOTAL 0.7 mg/dL (0.2-1.0); MAGNESIUM 2.2 mg/dL (1.7-2.8); TOTAL PROTEIN 6.1 g/dL (6.7-8.2)
[2018-02-17] MEDS: SODIUM CHLORIDE FLUSH 0.9% 10 ML SYRINGE IVP SCH (17:38)
[2018-02-17] MEDS: cloNIDine 0.1 MG TABLET PO SCH ×2 (17:39→19:15)
[2018-02-17] MEDS ORDERED: WARFARIN 1 MG TABLET PO ONE (18:36)
[2018-02-17] MEDS: NITROGLYCERIN 2% PASTE TOP SCH (20:45)
[2018-02-17] MEDS ORDERED: FAMOTIDINE 20 MG TABLET PO SCH (21:00)
--- NOTE | 2018-02-17 22:14 | HISTORY & PHYSICAL EXAMINATION ---
DATE OF SERVICE: 02/17/2018 Physician: Carolina Guerrero MD HISTORY OF PRESENT ILLNESS: This is a 77-year-old white female with a history of coronary artery disease with stenting done in 2012 and 2013. Apparently, it was done then without any chest pain symptoms, but from a very abnormal treadmill test and she needed stenting. She also has a history of hypertension, is on medications. She routinely checks her blood pressure several times per week and it has been under very good control. She describes being active, she bowls 2 times a week for 2 hours and walks daily for about 3 miles. Three days ago, her blood pressure checks revealed that she had very elevated blood pressure and she started to develop foggy, blurry vision. Since this worried her, today day she presented to the emergency room with this. She was evaluated for a TIA but had no focal findings, her NIH stroke score was 0 despite the blurred vision. She underwent a head CT in the ER, which also ruled out an acute stroke. Blood pressure has been elevated since presenting to the emergency room as high as 201/106. The patient also describes new dyspnea for 3 days and orthopnea, and because of this she stopped doing her walks. She does also admit to chest pain that she has had for the past two months. She has not seen her Sewer Builder about this yet. This used to happen with her daily walks, but then stopped and only happens nocturnally (when her morning medicines wear off, she thinks). She only tried nitroglycerin sublingual for this x1 with 1 pill and it had no change. She has had no stress testing to evaluate this symptom, she was waiting to see her Sewer Builder in the upcoming weeks for her routine visit. In the emergency room, she was found to have elevated BNP and heart failure on chest x-ray, received Lasix, and states that the orthopnea has already improved. She also has been given clonidine with some improvement of blood pressure down to 192/86 and she says that her vision with this has slowly started to improve, but is not yet normal. She denies any palpitations, syncope, or prior episodes of these symptoms before 2 months ago. She does describe leg edema, which is also improved with a dose of Lasix that she got in the emergency room. She has had no changes in medications over these past 3 days. She last traveled out of the city two months ago to [place], attended a rodeo, has done nothing else out of the ordinary recently. PAST MEDICAL HISTORY: CAD with stenting in 2012 and in 2013, hypertension, hypothyroidism, atrial fibrillation on amiodarone and Coumadin, Plaquenil dosing (for unknown diagnosis). ALLERGIES: 1. PENICILLIN. 2. SHELLFISH. 3. NUTS. 4. CODEINE. 5. BLEACH. MEDICATIONS: 1. Vitamin D3 6000 units daily. 2. Sublingual nitroglycerin p.r.n. 3. Levothyroxine 75 mcg daily. 4. Imdur 30 mg daily. 5. Potassium chloride 40 mEq b.i.d. 6. Simvastatin 20 mg every night. 7. Hydroxychloroquine 200 mg daily. 8. Amiodarone 100 mg daily. 9. Toprol-XL 12.5 mg daily. 10. Omeprazole 40 mg daily. 11. Warfarin 1.5 mg every evening. REVIEW OF SYSTEMS: The patient does not describe being on aspirin or Plavix currently. The patient reports that when she was first started on thyroid medication it was for marked fatigue, as well as weakness in her legs, and the thyroid medication helped these symptoms, but she developed hallucinations and the thyroid dose needed to be halved. A comprehensive review of systems was performed and pertinent positives are listed, the rest are negative. FAMILY HISTORY: No inherited diseases. SOCIAL HISTORY: She lives alone, is independent, drives a car, does her own ADLs, cooking, knows to use no salt. 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 She never smoked, drinks no alcohol, used no illicit drugs. PHYSICAL EXAMINATION: GENERAL: Thin, small elderly white female. She is in no distress. VITAL SIGNS: Blood pressure 182/86, heart rate 60 in sinus rhythm, afebrile, room air saturation 94%. HEENT: Unremarkable. NECK: No JVD. No carotid bruits. CHEST: Diminished breath sounds at both bases. No rales or rhonchi. HEART: Heart sounds are irregular, there is a 3/6 systolic murmur at the lower left sternal border and she has an intermittent S3 audible. She has no RV heave. ABDOMEN: Soft. No bruit. Normal bowel sounds. EXTREMITIES: No clubbing, cyanosis or edema. NEUROLOGIC: Intact. LABORATORIES: Normal electrolytes, BUN is 28, creatinine 1.4, magnesium 2.2. Normal liver tests and bilirubin. Troponin not detectable. BNP elevated at 796. TSH normal at 2.07. CBC unremarkable. INR low-therapeutic at 1.8. Chest x-ray: Mild CHF with increased vascular prominence and mild cardiomegaly. Head CT: showed age-related changes, but no acute infarct. EKG: Normal sinus rhythm, rate of 64, LVH voltage with strain pattern and flat T waves in the precordial leads. There is no old EKG available for comparison. IMPRESSION/DIAGNOSES: 1. Pulmonary edema. 2. Malignant hypertension. 3. Chronic kidney disease. 4. Blurred vision changes. 5. History of coronary artery disease with stents. 6. Hypothyroidism. 7. Angina. PLAN: Admit the patient on a telemetry medical/surgical bed. Add nitro paste, both for blood pressure control and treatment of chest pain. Continue her blood pressure medications, increase the beta donal slightly. Add clonidine as well for further blood pressure control, using it p.r.n. Cycle troponins x3 to rule out an acute OR. Obtain an Echo to establish LV and RV contractility and evaluate the murmur. Continue with gentle diuresis, following her Is and Os, daily weight, electrolytes and magnesium daily. Depending on results of the above tests, she may need transfer for a coronary angiogram; she was told this and agrees. Obtain renal ultrasound to rule out renal artery stenosis. Obtain lipids to check control. Continue with her thyroid medication, and Plaquenil. Give additional Coumadin tonight because of the low INR, target INR to be 2-3. Follow INR daily while here. CODE STATUS: FULL CODE. DEEP VENOUS THROMBOSIS PROPHYLAXIS: Sequential compression devices and pharmacologic anticoagulation on her Coumadin. ATTESTATION: The patient is expected to be discharged or transferred to another facility within 96 hours: Yes. cc: Jane Camacho MD TD: 02/17/2018 19:29 MTDD
[2018-02-17] MEDS: METOPROLOL SUCCINATE 25 MG TABLET PO SCH (22:45)
[2018-02-18] MEDS: SODIUM CHLORIDE FLUSH 0.9% 10 ML SYRINGE IVP SCH ×3 (00:48→18:23)
--- NOTE | 2018-02-18 02:35 | Ultrasound Report ---
Reason: Blurred vision Procedure Date: 02/18/2018 Accession Number: [id number] / [id number] Procedure: US - Carotid Doppler Complete CPT Code: FULL RESULT: EXAM: BILATERAL CAROTID AND VERTEBRAL ARTERY DUPLEX DOPPLER ULTRASOUND: EXAM DATE: 02/18/2018 12:04 AM CLINICAL HISTORY: Blurred vision. COMPARISON: None. TECHNIQUE: Grayscale imaging, color Doppler, and duplex spectral Doppler were used to evaluate the carotid and vertebral arteries bilaterally. Static images were obtained. FINDINGS: Mild plaquing is present bilaterally. There is no evidence of a significant stenosis. Vessel tortuosity contributes to velocity elevation seen. Normal antegrade flow is present in bilateral vertebral arteries. VELOCITIES (cm/sec): Right CCA mid: PSV 39 cm/sec CCA dist: PSV 35 cm/sec ICA prox: PSV 91 cm/sec, EDV 23 cm/sec ICA mid: PSV 64 cm/sec, EDV 15 cm/sec ICA dist: PSV 32 cm/sec, EDV 8 cm/sec ECA: PSV 122 cm/sec Vert: PSV 29 cm/sec ICA/CCA: 2.6 Left CCA mid: PSV 60 cm/sec CCA dist: PSV 69 cm/sec ICA prox: PSV 201 cm/sec, EDV 36 cm/sec ICA mid: PSV 115 cm/sec, EDV 12 cm/sec ICA dist: PSV 89 cm/sec, EDV 9 cm/sec ECA: PSV 41 cm/sec Vert: PSV 14 cm/sec ICA/CCA: 2.9 ICA diameter stenosis: Right: <50% by velocity and <70% by NASCET criteria. Left: <50% by velocity and <70% by NASCET criteria. IMPRESSION: 1. Mild bilateral carotid artery plaquing. 2. No evidence of a hemodynamically significant stenosis. Vessel tortuosity contributes to velocity elevations. 3. Normal antegrade flow is present in bilateral vertebral arteries. General Recommendations: Stenosis =50% ICA - Follow-up ultrasound 6-12 months Stenosis <50% ICA - High Risk Patient with plaque - Follow-up ultrasound 1-2 years Normal Study but High Risk Patient - Follow-up ultrasound 3-5 years Management recommendations and diagnostic criteria are based on current IAC endorsed standards in Carotid Artery Stenosis: Grayscale and Doppler Ultrasound Diagnosis. Validated velocity measurements with angiographic measurements and velocity criteria are extrapolated from diameter data as defined by the Society of Radiologists in Ultrasound Consensus Conference Radiology 2003; 229;340-346. RADIA
[2018-02-18] MEDS: NITROGLYCERIN 2% PASTE TOP SCH ×5 (04:02→21:41)
[2018-02-18 05:31] LABS: INR 2.2 (0.8-1.2); PT - PROTHROMBIN TIME 24.3 secs (9.9-12.6)
[2018-02-18 05:38] LABS: CALCIUM 8.9 mg/dL (8.5-10.3); CREATININE 1.5 mg/dL (0.4-1.0)
[2018-02-18] MEDS: LEVOTHYROXINE 75 MCG TABLET PO SCH (06:59)
[2018-02-18] MEDS ORDERED: ISOSORBIDE MONONITRATE ER 30 MG TABLET PO SCH (09:00)
[2018-02-18] MEDS ORDERED: FUROSEMIDE 40 MG/4 ML VIAL IVP SCH (09:00)
[2018-02-18] MEDS ORDERED: AMIODARONE 200 MG TABLET PO SCH (09:00)
[2018-02-18] MEDS: CHOLECALCIFEROL 5,000 UNIT CAPSULE PO SCH (09:43)
[2018-02-18] MEDS: CHOLECALCIFEROL 1,000 UNIT TABLET PO SCH (09:43)
[2018-02-18] MEDS: POLYETHYLENE GLYCOL 3350 17 GM PACKET PO SCH (10:13)
[2018-02-18] MEDS: METOPROLOL SUCCINATE 25 MG TABLET PO SCH (10:14)
[2018-02-18] MEDS: HYDROXYCHLOROQUINE 200 MG TABLET PO SCH (10:14)
[2018-02-18] MEDS: FAMOTIDINE 20 MG TABLET PO SCH (10:14)
[2018-02-18] MEDS: cloNIDine 0.1 MG TABLET PO SCH (10:14)
--- NOTE | 2018-02-18 14:24 | Ultrasound Report ---
Reason: Eval for renal art stenosis, Malignant HTN Procedure Date: 02/18/2018 Accession Number: [id number] / [id number] Procedure: US - Arterial Visceral Complete CPT Code: FULL RESULT: EXAM: RENAL ARTERY DOPPLER ULTRASOUND. EXAM DATE: 02/18/2018 12:00 PM. CLINICAL HISTORY: Evaluate for renal art stenosis, malignant hypertension. COMPARISON: None. TECHNIQUE: Real-time sonographic vascular imaging was performed by the dressed poultry grader through the renal arterial system with a linear transducer utilizing color-flow, Doppler flow, and spectral analysis. Multiple contact center representative static images were saved for review. FINDINGS: Right renal artery: Elevated peak systolic velocities in the right renal artery origin and proximal and mid renal artery with elevated peak systolic velocity at the right renal artery origin measuring 344 cm/s with a renal artery to aortic ratio measuring 3.3 indicating 1-59% stenosis. Left renal artery: Elevated peak systolic velocities at the left renal artery origin and in the proximal renal artery measuring greater than 600 cm/s at the left renal artery origin with renal artery to aortic ratio measuring greater than 5.8 indicating greater than or equal to 60% stenosis. Distal left renal artery not seen. Right Kidney: 9.6 x 4.8 x 3.9 cm. Right Segmental Artery: Upper pole: PSV 19 cm/sec, RI 0.78. Mid pole: PSV 16 cm/sec, RI 0.74. Lower pole: PSV 12 cm/sec, RI 0.68. Right Renal Artery: Origin: PSV 344 cm/sec, RA/AO 3.31. Proximal: PSV 299 cm/sec, RA/AO 2.88. Mid: PSV 242 cm/sec, RA/AO 2.33. Distal: PSV 158 cm/sec, RA/AO 1.52. Aorta PSV: 104 cm/sec. RRV Patent: Yes. Left Kidney: 7.4 x 3.6 x 2.9 cm. Left Segmental Artery: Upper pole: PSV 12 cm/sec, RI 0.72. Mid pole: PSV 11 cm/sec, RI 0.73. Lower pole: PSV 9 cm/sec, RI 0.71. Left Renal Artery: Origin: PSV 7600 cm/sec, RA/AO 5.77. Proximal: PSV 398 cm/sec, RA/AO 3.83. Mid: PSV 114 cm/sec, RA/AO 1.10. Distal: Not seen. LRV Patent: Yes. IMPRESSION: 1. Velocities and ratios in the left renal artery indicating greater than or equal to 60% stenosis at the left renal artery origin and proximal renal artery. 2. Velocities and ratios in the right renal artery indicating 1-59% stenosis in the right renal artery origin and proximal and mid renal artery. CRITERIA FOR CLASSIFICATION OF RENAL ARTERY (RA) DISEASE BY DUPLEX SCANNING: RA Diameter Reduction/ RA PSV/ RAR: Normal, < 180 cm/sec, < 3.5 < 60%, >= 180 cm/sec, < 3.5 >= 60%, >= 180 cm/sec, >= 3.5 Total Occlusion: Undetectable; Not applicable RADIA
[2018-02-18] MEDS: WARFARIN 1 MG TABLET PO SCH (14:56)
[2018-02-18] MEDS ORDERED: NITROGLYCERIN SL 0.4 MG TABLET SL ONE (15:30)
--- NOTE | 2018-02-18 15:53 | PROVIDER PROGRESS NOTE ---
Assessment/Plan - Problem List (1) Malignant hypertension Assessment/Plan: BP has been controlled with various combination of med adjustments. Will decrease Clonidine, to allow nitrates and B-donal dosing. Discussed with Pt and her daughter. (2) Acute worsening of stage 3 chronic kidney disease Assessment/Plan: Pt got 1 or 2 doses of diuretic and has improved orthopnea and leg edema, but worsened renal failure. Will stop diuretics. Will not use ACEs, ARBs or other diuretics. Discussed with Pt and daughter. (3) YUDY (renal artery stenosis) Assessment/Plan: The renal ultrasound does show renal artery stenosis. I will discuss this with her Dial Screw Assembler for the possibility of renal artery stenting. (4) Acute on chronic diastolic heart failure Assessment/Plan: Echo was done today and shows preserved LVEF, and diastolic dysfunction present. Continue B-donal, salt restriction. Other meds changes as above. This was discussed with Pt and daughter. (5) Angina pectoris Assessment/Plan: No elevaion of troponins overnight. No new EKG changes of ischemia. Will continue NTP and sl NTG. Will contact her Dial Screw Assembler, possibly transfer for further management. Discussed with Pt and daughter at bedside. (6) Pulmonary HTN Assessment/Plan: Moderate pulm HTN by Echo done today, with PA pressure 52 mmHg. The patient may have COPD from alot of secondary smoke exposure (from her father), vs secondary to LV diastolic failure o from Sarcoid. 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 - Current Meds Current Meds: Current Medications Generic Name Dose Route Start Last Admin Trade Name Freq PRN Reason Stop Dose Admin Acetaminophen 650 mg 02/17/18 16:20 02/18/18 11:50 Tylenol PO 650 mg Q4HR PRN Administration Pain or Fever > 38C (100.4F) Cholecalciferol 5,000 unit 02/18/18 09:00 02/18/18 09:43 Vitamin D3 PO Not Given DAILY OMARI Cholecalciferol 1,000 unit 02/18/18 09:00 02/18/18 09:43 Vitamin D3 PO Not Given DAILY OMARI Famotidine 20 mg 02/18/18 09:00 02/18/18 10:14 Pepcid PO 20 mg DAILY OMARI Administration Hydroxychloroquine Sulfate 200 mg 02/18/18 09:00 02/18/18 10:14 Plaquenil PO 200 mg DAILY OMARI Administration Levothyroxine Sodium 75 mcg 02/18/18 07:00 02/18/18 06:59 Synthroid PO 75 mcg QDAC OMARI Administration Nitroglycerin 0.4 mg 02/17/18 16:27 02/18/18 15:39 Nitrostat SL 02/18/18 16:26 0.4 mg ONCE PRN Administration Chest Pain Nitroglycerin 0.5 inch 02/17/18 19:00 02/18/18 14:56 Nitro-Bid (Pkt) TOP 0.5 inch Q6HR OMARI Administration Polyethylene Glycol 17 gm 02/18/18 09:00 02/18/18 10:13 Miralax PO Not Given DAILY OMARI Sodium Chloride 10 ml 02/17/18 17:00 02/18/18 14:56 Normal Saline Flush 0.9% IVP 10 ml 0100,0900,1700 OMARI Administration Warfarin Sodium 1.5 mg 02/18/18 14:00 02/18/18 14:56 Coumadin PO 1.5 mg QDWARFARIN OMARI Administration - Lab Result Fish Bone Diagrams: 02/17/18 14:00 02/18/18 05:04 - EKG Results EKG Interpreted Independently: Yes EKG Comparison: Changed from prior EKG EKG Findings: Sinus raquel, rate 50, LVH with strain, flaT waves in limb leads. long QT interval. Since yesterday's EKG, HR is slower. - Additional Planning My Orders: My Active Orders 02/17/18 16:20 Activity Orders [RC] Routine IO [RC] IOSHIFT Initiate Bowel Care Protocol [RC] .protocol Initiate Line Care Protocol [RC] .protocol Initiate Line Care Protocol [RC] QSHIFT Initiate Personal Care Protoco [RC] .protocol Vital Signs [RC] Q3HR Acetaminophen [Tylenol] 650 mg PO Q4HR PRN HYDROmorphone INJ SYRINGE [Dilaudid Inj Syringe] 0.5 mg IVP Q2H PRN Morphine Inj (Carpuject) [Morphine (Carpuject)] 2 mg IVP Q2HR PRN Prochlorperazine Inj [Compazine Inj] 10 mg IVP Q6HR PRN Sodium Chloride Flush 0.9% [Normal Saline Flush 0.9%] 10 ml IVP PRN PRN Code Status [OTHERS] Routine Condition of Patient [OTHERS] Routine DVT Prophylaxis [OTHERS] Routine 02/17/18 16:24 Daily Weight [RC] 0600 02/17/18 16:25 IV Insert [RC] .ONCE SCDs [RC] QSHIFT Telemetry- [RC] Q4HR 02/17/18 16:27 Nitroglycerin [Nitrostat] 0.4 mg SL ONCE PRN 02/17/18 17:00 Sodium Chloride Flush 0.9% [Normal Saline Flush 0.9%] 10 ml IVP 0100,0900,1700 02/17/18 19:00 Nitroglycerin 2% Paste (Pkt) [Nitro-Bid (Pkt)] 0.5 inch TOP Q6HR 02/17/18 Dinner Cardiac Diet [DIET] Low Sodium Diet [DIET] 02/18/18 07:00 Levothyroxine [Synthroid] 75 mcg PO QDAC 02/18/18 09:00 Cholecalciferol [Vitamin D3] 1,000 unit PO DAILY Cholecalciferol [Vitamin D3] 5,000 unit PO DAILY Famotidine [Pepcid] 20 mg PO DAILY Hydroxychloroquine [Plaquenil] 200 mg PO DAILY Polyethylene Glycol 3350 [Miralax] 17 gm PO DAILY 02/18/18 14:00 Warfarin [Coumadin] 1.5 mg PO QDWARFARIN 02/18/18 16:29 Echo Transthoracic Complete [ECHO] Routine 02/19/18 05:00 BMP - BASIC METABOLIC PANEL [CHEM] DAILYLAB BNP - B-NATRIURETIC PEPTIDE [IAI] DAILYLAB PT WITH INR [COAG] DAILYLAB 02/19/18 09:00 Metoprolol Succinate [Toprol Xl] 12.5 mg PO DAILY cloNIDine [Catapres] 0.1 mg PO DAILY 02/20/18 05:00 BMP - BASIC METABOLIC PANEL [CHEM] DAILYLAB BNP - B-NATRIURETIC PEPTIDE [IAI] DAILYLAB PT WITH INR [COAG] DAILYLAB 02/21/18 05:00 BMP - BASIC METABOLIC PANEL [CHEM] DAILYLAB PT WITH INR [COAG] DAILYLAB Subjective - Subjective Patient Reports: Other (No SOB. Chest pain in the late afternoon.) Nursing Reports: Other (Chest pain occured as a short run of SVT was seen on telemetry. Pt got sl NTG x2, and this relieved her CP.) Objective Vital Signs: Vital Signs - 24 hr 02/17/18 02/17/18 02/17/18 16:56 17:12 19:02 Temperature Heart Rate 55 L Heart Rate [ 60 51 L Brachial] Heart Rate [ Monitoring electrodes] Respiratory 20 16 Rate Blood Pressure 185/83 H Blood Pressure 192/86 H 115/47 L [Right Brachial artery] O2 Saturation 98 96 02/17/18 02/18/18 02/18/18 22:44 00:50 03:00 Temperature 36.5 C 36.7 C Heart Rate Heart Rate [ 54 L 50 L Brachial] Heart Rate [ 50 L Monitoring electrodes] Respiratory 17 16 Rate Blood Pressure Blood Pressure 161/56 H 142/55 H [Right Brachial artery] O2 Saturation 92 93 02/18/18 02/18/18 02/18/18 07:29 10:10 14:03 Temperature 36.4 C L 36.4 C L 36.3 C L Heart Rate Heart Rate [ 51 L 52 L 46 L Brachial] Heart Rate [ Monitoring electrodes] Respiratory 18 16 16 Rate Blood Pressure Blood Pressure 143/59 H 147/67 H 123/53 L [Right Brachial artery] O2 Saturation 93 94 98 02/18/18 02/18/18 02/18/18 15:10 15:19 15:29 Temperature Heart Rate 50 L Heart Rate [ Brachial] Heart Rate [ 53 L 50 L Monitoring electrodes] Respiratory 16 Rate Blood Pressure 128/58 L Blood Pressure 107/42 L 128/58 L [Right Brachial artery] O2 Saturation 97 02/18/18 02/18/18 15:39 15:45 Temperature Heart Rate 51 L Heart Rate [ Brachial] Heart Rate [ 51 L Monitoring electrodes] Respiratory Rate Blood Pressure 109/57 L Blood Pressure 103/48 L [Right Brachial artery] O2 Saturation Oxygen O2 Source [With Activity] Room air O2 Source Room air I&O (Last 24 Hrs): Intake and Output Totals x24h 02/16/18 02/17/18 02/18/18 23:59 23:59 23:59 Intake Total 150 320 Balance 150 320 General: Alert, Oriented x3 HEENT: Mucous membr. moist/pink Neck: Supple, No JVD Neuro: Alert, Other (Appears fatigued.) Cardiovascular: Regular rate Respiratory: No respiratory distress Abdomen: Soft Extremities: No edema - Results Results: Laboratory Results WBC 7.8 x10^3/uL (4.8-10.8) 02/17/18 14:00 RBC 4.13 10^6/uL (4.20-5.40) L 02/17/18 14:00 Hgb 12.0 g/dL (12.0-16.0) 02/17/18 14:00 Hct 35.2 % (37.0-47.0) L 02/17/18 14:00 MCV 85.1 fL (81.0-99.0) 02/17/18 14:00 MCH 28.9 pg (27.0-31.0) 02/17/18 14:00 MCHC 34.0 g/dL (32.0-36.0) 02/17/18 14:00 RDW 14.8 % (12.0-15.0) 02/17/18 14:00 Plt Count 207 10^3/uL (130-450) 02/17/18 14:00 MPV 7.0 fL (7.9-10.8) L 02/17/18 14:00 Neut # (Auto) 6.6 10^3/uL (1.5-6.6) 02/17/18 14:00 Lymph # (Auto) 0.3 10^3/uL (1.5-3.5) L 02/17/18 14:00 [place] # (Auto) 0.6 10^3/uL (0.0-1.0) 02/17/18 14:00 Eos # (Auto) 0.2 10^3/uL (0.0-0.7) 02/17/18 14:00 Baso # (Auto) 0.0 10^3/uL (0.0-0.1) 02/17/18 14:00 Absolute Nucleated RBC 0.00 x10^3/uL 02/17/18 14:00 Nucleated RBC % 0.0 /100WBC 02/17/18 14:00 PT 24.3 secs (9.9-12.6) H 02/18/18 05:04 INR 2.2 (0.8-1.2) H 02/18/18 05:04 Sodium 139 mmol/L (135-145) 02/18/18 05:04 Potassium 3.5 mmol/L (3.5-5.0) 02/18/18 05:04 Chloride 101 mmol/L (101-111) 02/18/18 05:04 Carbon Dioxide 27 mmol/L (21-32) 02/18/18 05:04 Anion Gap 11.0 (6-13) 02/18/18 05:04 BUN 29 mg/dL (6-20) H 02/18/18 05:04 Creatinine 1.5 mg/dL (0.4-1.0) H 02/18/18 05:04 Estimated GFR (MDRD) 33 (>89) L 02/18/18 05:04 Glucose 82 mg/dL (70-100) 02/18/18 05:04 Calcium 8.9 mg/dL (8.5-10.3) 02/18/18 05:04 Magnesium 2.2 mg/dL (1.7-2.8) 02/17/18 14:00 Total Bilirubin 0.7 mg/dL (0.2-1.0) 02/17/18 14:00 Direct Bilirubin 0.2 mg/dL (0.1-0.5) 02/17/18 14:00 AST 23 IU/L (10-42) 02/17/18 14:00 ALT 17 IU/L (10-60) 02/17/18 14:00 Alkaline Phosphatase 69 IU/L (42-121) 02/17/18 14:00 Troponin I < 0.04 ng/mL (<0.49) 02/18/18 05:04 B-Natriuretic Peptide 740 pg/mL (5-100) H 02/18/18 05:04 Total Protein 6.1 g/dL (6.7-8.2) L 02/17/18 14:00 Albumin 3.7 g/dL (3.2-5.5) 02/17/18 14:00 Globulin 2.4 g/dL (2.1-4.2) 02/17/18 14:00 TSH 2.07 uIU/mL (0.34-5.60) 02/17/18 14:00 - Procedures Procedures: Procedures ESOPHAGOGASTRODUODENOSCOPY [EGD] W/CLOSED BIOPSY (07/10/14) INSERT INTERCOSTAL CATH (07/10/14) PACKED CELL TRANSFUSION (07/10/14)
[2018-02-18] MEDS ORDERED: LIDOCAINE PATCH 5% TOP PRN (16:31)
[2018-02-19] MEDS: SODIUM CHLORIDE FLUSH 0.9% 10 ML SYRINGE IVP SCH ×2 (01:00→09:03)
[2018-02-19 05:28] LABS: INR 2.4 (0.8-1.2); PT - PROTHROMBIN TIME 27.1 secs (9.9-12.6)
[2018-02-19 05:34] LABS: CALCIUM 8.6 mg/dL (8.5-10.3); CREATININE 1.7 mg/dL (0.4-1.0)
[2018-02-19] MEDS: LEVOTHYROXINE 75 MCG TABLET PO SCH (06:25)
[2018-02-19] MEDS: NITROGLYCERIN 2% PASTE TOP SCH ×2 (06:27→12:31)
[2018-02-19] MEDS ORDERED: cloNIDine 0.1 MG TABLET PO SCH (09:00)
[2018-02-19] MEDS: METOPROLOL SUCCINATE 25 MG TABLET PO SCH ×2 (09:03→10:46)
[2018-02-19] MEDS: CHOLECALCIFEROL 5,000 UNIT CAPSULE PO SCH (09:03)
[2018-02-19] MEDS: CHOLECALCIFEROL 1,000 UNIT TABLET PO SCH (09:03)
[2018-02-19] MEDS: FAMOTIDINE 20 MG TABLET PO SCH (09:03)
[2018-02-19] MEDS: POLYETHYLENE GLYCOL 3350 17 GM PACKET PO SCH (09:03)
[2018-02-19] MEDS: HYDROXYCHLOROQUINE 200 MG TABLET PO SCH (09:03)
[2018-02-19] MEDS: WARFARIN 1 MG TABLET PO SCH (13:47)
[2018-02-19] MEDS ORDERED: POTASSIUM CHLORIDE 10 MEQ CAPSULE PO ONE (15:42)
--- NOTE | 2018-02-19 15:47 | Discharge Plan ---
Discharge Plan Disposition: Home, Self Care Condition: Stable Prescriptions: Nitroglycerin [Nitrostat] 0.4 mg SL Q5MIN PRN #100 tablet PRN Reason: Angina cloNIDine [Catapres] 0.1 mg PO DAILY #30 tablet Nitroglycerin 0.4 mg/Hr Patch [Nitro-Dur] 1 each TD DAILY #30 patch Diet: Low Sodium Activity Restrictions: No exertion until seen by Offal Baler Shower Restrictions: No Driving Restrictions: No Instruction Topics: Kidney Disease Potassium, Kidney Disease Limit Fluids, Angina, Nitroglycerin Fast Acting Additional Instructions or Follow Up instructions: You were admitted for uncontrolled hypertension and fluid retention and chest pain. Your tests found that you have kidney disease, diastolic (stiffness) of the heart muscle, renal artery stenosis, possible need for a coronary angiogram and stenting of the renal artery. Your medications were changed. Please follow the new medication list. You should see your Offal Baler in the next 7-10 days. If you have new or worsening symptoms, come to the ER. No Smoking: If you smoke, Please STOP! Call for help. Follow-up with: Jane Camacho MD [Primary Care Provider] -
[2018-02-19 17:15] VITALS: BP 155/67
--- NOTE | 2018-02-23 11:15 | DISCHARGE SUMMARY ---
Physician: Carolina Guerrero MD DATE OF ADMISSION: 02/17/2018 DATE OF DISCHARGE: 02/19/2018 HISTORY OF PRESENT ILLNESS: This is a 77-year-old white female who is very active and independent, bowls twice a week, walks 3 miles a day, who has a history of coronary artery disease with stenting done in 2012 and again in 2013, history of hypertension, hypothyroidism, atrial fibrillation on Coumadin, and sarcoidosis on Plaquenil. She presented with increasing angina for about a month, a 3-day history of dyspnea, leg edema, blood pressure poorly controlled, and over those 3 days she refrained from doing her daily walking, and when she developed double vision she presented to the emergency room. She was admitted for management of the above complaints. HOSPITAL COURSE AND DISCHARGE DIAGNOSES: 1. Pulmonary edema. The chest x-ray showed pulmonary edema. She required IV Lasix then p.o. Lasix for 2 days and had marked improvement in orthopnea and leg edema. Her troponin values were not detectable ruling out an PR. The BNP was 796 on admission and decreased to 339 by discharge. She underwent an Echo to evaluate cause for the new CHF and this showed mild LV enlargement, mild LVH, LVEF of 60-65% with grade 2 diastolic dysfunction, normal RV size and function, mild to moderate mitral regurgitation, mild tricuspid regurgitation and PA pressure 52 mmHg. Because of her renal failure (see below), she was not sent home with additional Lasix. 2. Malignant hypertension. The patient was very concerned herself about the suddenly poorly controlled blood pressure. It was felt that this was a cause of her double vision since she had work up in the ER for TIA and the head CT showed no acute findings. Clonidine needed to be added for better blood pressure control. There were further adjustments of her medications with the addition of nitrates and beta blockers adjusted. The admitting blood pressure was 201/106 and on the day of discharge it was 140/64 with a heart rate of 45-50. Initially, the beta donal dose was increased, but heart rate dropped below 40 and therefore the beta donal dose was kept the same at the time of discharge. 3. Acute worsening of stage III chronic kidney disease. The patient's baseline creatinine was 1.2 to 1.4. On this admission, creatinine was 1.4, javon to 1.5 and was 1.7 at the time of discharge. For this reason, she was not placed on an MARY or ARB or diuretics continued. Work-up for worsening renal dysfunction included a renal ultrasound to evaluate for renal artery stenosis and in fact this was found. 4. Renal artery stenosis. Arterial ultrasound of the renal arteries showed elevated velocity in the right renal artery indicating 59% stenosis and elevated velocity in the left renal artery indicating 60% or greater stenosis. I reached out to her Poultry Service Technician, and spoke to his partner, and reported this finding. The patient will be seen by her Poultry Service Technician and there will be consideration for renal artery stenting to be arranged in the future. 5. Acute on chronic diastolic heart failure, [place] Heart Association class II. The echo showed preserved LVEF, but stage II diastolic dysfunction. This could be secondary to more longstanding hypertension than just the 3 days. She had salt restriction in her diet and continuation of the beta donal. There were no signs of volume overload at the time of discharge. 6. Angina pectoris. The patient had reported exertional angina rarely over the past few months, and then several episodes of nocturnal angina (she thought her morning medication effects were running out giving her symptoms). She reported only trying one sublingual nitroglycerin over the past month, but remembered that the bottle was over 4 years old. She had an episode of her typical angina while here. An EKG was done and showed no ischemic changes and she responded to 2 sublingual nitroglycerin and was also put on nitro paste. I spoke to the covering Poultry Service Technician regarding this topic also, and it will also be addressed at her upcoming Cardiology visit. Increase of her antianginal medications was advised, and she was sent home on a nitro patch and a fresh sl NTG prescription. Her other cardiac medications were continued. 7. Pulmonary hypertension. The Echo showed moderate pulmonary hypertension with PA pressure of 52 mmHg. This could be from COPD as she reports being exposed to "a lot of secondary smoke from her father", and alternatively secondary to her LV diastolic dysfunction or from having pulmonary sarcoid. 8. Sarcoidosis of lung with sarcoidosis of lymph nodes. The patient and daughter described that her Plaquenil was started many years ago when she was diagnosed by biopsy from a mediastinoscopy that showed sarcoid. These medications were continued while here. ALLERGIES: PENICILLIN, SHELLFISH, PEANUTS, CODEINE, AND BLEACH. DISCHARGE MEDICATIONS: At the time of discharge: 1. Biotin daily. 2. Vitamin B12 daily. 3. Iron 325 mg daily. 4. Plaquenil 200 mg daily. 5. Levothyroxine 75 mcg daily. 6. Metoprolol succinate 12.5 mg daily. 7. Omeprazole 40 mg daily. 8. Simvastatin 20 mg every night. 9. Warfarin 1.5 mg daily. 10. Sublingual nitroglycerin p.r.n. (new prescription for fresh supply). 11. Vitamin D3 5000 units daily. 12. Clonidine 0.1 mg daily. (new) 13. Nitro patch 0.4 mg topically daily, off at bedtime. (new) LABORATORY AND IMAGING: Reviewed and summarized above. CONDITION AT DISCHARGE: Stable. PHYSICAL EXAMINATION: VITAL SIGNS: Blood pressure 155/67, heart rate 50 in sinus rhythm, afebrile, room air saturation 96%. HEENT: Unremarkable. NECK: Without JVD or carotid bruits. CHEST: Clear. HEART: Sounds irregular. No murmur heard. ABDOMEN: Soft and benign. EXTREMITIES: No edema. NEUROLOGIC: Intact. FOLLOWUP: She was advised to see her PCP and Poultry Service Technician within a week. CODE STATUS: FULL CODE. In regard to her discharge, chart reviewed. The patient and daughter and family education at bedside, prescription orders, dictation: 65 minutes. TD: 02/23/2018 10:51 [email or web address]
== END 2018-02-19 16:56 | disposition home or self-care (01) | DRG 291 ==
LOC: ED 13:31 → MS3 16:20
PROVIDERS: ADMIT Internal Medicine; ATTEND Internal Medicine
DX: I11.0 Hypertensive heart disease with heart failure (principal); I50.9 Heart failure, unspecified; N28.9 Disorder of kidney and ureter, unspecified; R51 Headache; I13.0 Hypertensive heart and chronic kidney disease with heart failure and stage 1 through stage 4 chronic kidney disease, or unspecified chronic kidney disease; R05 Cough; I50.33 Acute on chronic diastolic (congestive) heart failure; J45.909 Unspecified asthma, uncomplicated; N18.3 Chronic kidney disease, stage 3 (moderate); H53.2 Diplopia; H53.8 Other visual disturbances; I70.1 Atherosclerosis of renal artery; I25.119 Atherosclerotic heart disease of native coronary artery with unspecified angina pectoris; I08.1 Rheumatic disorders of both mitral and tricuspid valves; I27.20 Pulmonary hypertension, unspecified; D86.2 Sarcoidosis of lung with sarcoidosis of lymph nodes; E03.9 Hypothyroidism, unspecified; I48.91 Unspecified atrial fibrillation; Z95.5 Presence of coronary angioplasty implant and graft; Z79.01 Long term (current) use of anticoagulants; Z79.899 Other long term (current) drug therapy; Z77.22 Contact with and (suspected) exposure to environmental tobacco smoke (acute) (chronic)
CPT/HCPCS: 36415; 70450; 71046; 80048; 80076; 83735; 83880; 84443; 84484; 85025; 85610; 93005; 93306; 93880; 93975; 96374; 96375; 99284

== ENCOUNTER 2018-02-28 09:26 | Outpatient (CLI) | payer MEDICARE, OTHER | END 2018-02-28 23:59 | disposition home or self-care (01) | LOC: LAB.N 09:26 | PROVIDERS: ATTEND Family Medicine | DX: I48.91 Unspecified atrial fibrillation (principal) | CPT/HCPCS: 85610 ==

== ENCOUNTER 2018-03-07 07:59 | Outpatient (CLI) | payer MEDICARE, OTHER ==
[2018-03-07 13:25] LABS: CALCIUM 9.2 mg/dL (8.5-10.3)
[2018-03-07 13:37] LABS: INR 3.5 (0.8-1.2); PT - PROTHROMBIN TIME 38.3 secs (9.9-12.6)
== END 2018-03-07 23:59 | disposition home or self-care (01) ==
LOC: LAB.N 07:59
PROVIDERS: ATTEND Internal Medicine Cardiovascular Disease
DX: I25.119 Atherosclerotic heart disease of native coronary artery with unspecified angina pectoris (principal); I48.91 Unspecified atrial fibrillation; I50.32 Chronic diastolic (congestive) heart failure; I70.1 Atherosclerosis of renal artery
CPT/HCPCS: 36415; 80048; 85610

== ENCOUNTER 2018-03-29 08:56 | Outpatient (CLI) | payer MEDICARE, OTHER | END 2018-03-29 23:59 | disposition home or self-care (01) | LOC: LAB.N 08:56 | PROVIDERS: ATTEND Family Medicine | DX: I48.91 Unspecified atrial fibrillation (principal) | CPT/HCPCS: 85610 ==

== ENCOUNTER 2018-04-06 08:00 | Outpatient (CLI) | payer MEDICARE, OTHER ==
[2018-04-06 12:54] LABS: EOSINOPHILS # (AUTO) 0.2 10^3/uL (0.0-0.7); HGB - HEMOGLOBIN 11.8 g/dL (12.0-16.0); LYMPHOCYTES # (AUTO) 0.6 10^3/uL (1.5-3.5); LYMPHOCYTES % (AUTO) 16.5 %; MEAN CORPUSCULAR HEMOGLOBIN 28.5 pg (27.0-31.0); MEAN CORPUSCULAR HGB CONC 33.6 g/dL (32.0-36.0); MEAN CORPUSCULAR VOLUME 84.7 fL (81.0-99.0); MONOCYTES # (AUTO) 0.5 10^3/uL (0.0-1.0); MONOCYTES % (AUTO) 12.2 %; NEUTROPHILS # (AUTO) 2.5 10^3/uL (1.5-6.6); NEUTROPHILS % (AUTO) 65.3 %; PLT - PLATELET COUNT 297 10^3/uL (130-450); RED BLOOD COUNT 4.15 10^6/uL (4.20-5.40); RED CELL DISTRIBUTION WIDTH 14.3 % (12.0-15.0); WHITE BLOOD COUNT 3.8 x10^3/uL (4.8-10.8)
[2018-04-06 13:17] LABS: ALBUMIN 3.8 g/dL (3.2-5.5); ALBUMIN/GLOBULIN RATIO 1.3 (1.0-2.2); ALKALINE PHOSPHATASE 80 IU/L (42-121); ALT ALANINE AMINOTRANSFERASE 18 IU/L (10-60); AST ASPARTATE AMINOTRANSFERASE 21 IU/L (10-42); BILIRUBIN,TOTAL 0.7 mg/dL (0.2-1.0); BUN - BLOOD UREA NITROGEN 39 mg/dL (6-20); CALCIUM 9.2 mg/dL (8.5-10.3); CARBON DIOXIDE - CO2 29 mmol/L (21-32); CHLORIDE 102 mmol/L (101-111); CHOL/HDL RATIO 2.7 (<4.4); CHOLESTEROL 199 mg/dL; CREATININE 1.6 mg/dL (0.4-1.0); GFR - MDRD 31 (>89); GLUCOSE 92 mg/dL (70-100); HDL CHOLESTEROL 74 mg/dL; LDL CHOLESTEROL,CALCULATED 101 mg/dL; LDL/HDL RATIO 1.4 (<4.4); SODIUM 141 mmol/L (135-145); TOTAL PROTEIN 6.8 g/dL (6.7-8.2); VLDL CHOLESTEROL 24 mg/dL
[2018-04-06 13:24] LABS: THYROID STIMULATING HORMONE 3.26 uIU/mL (0.34-5.60)
[2018-04-06 13:26] LABS: FREE T4 (FREE THYROXINE) 1.28 ng/dL (0.58-1.64)
== END 2018-04-06 23:59 | disposition home or self-care (01) ==
LOC: LAB.N 08:00
PROVIDERS: ATTEND Family Medicine
DX: I10 Essential (primary) hypertension (principal); I48.91 Unspecified atrial fibrillation; E03.9 Hypothyroidism, unspecified
CPT/HCPCS: 36415; 80053; 80061; 83721; 84439; 84443; 85025; 85610

== ENCOUNTER 2018-04-17 08:00 | Outpatient (CLI) | payer MEDICARE, OTHER | END 2018-04-17 23:59 | disposition home or self-care (01) | LOC: LAB.N 08:00 | PROVIDERS: ATTEND Family Medicine | DX: I48.91 Unspecified atrial fibrillation (principal) | CPT/HCPCS: 85610 ==

== ENCOUNTER 2018-04-23 08:41 | Outpatient (CLI) | payer MEDICARE, OTHER | END 2018-04-23 08:42 | disposition critical access hospital (66) | LOC: EMS 08:41 | PROVIDERS: ATTEND Surgery | DX: R42 Dizziness and giddiness (principal); R53.1 Weakness | CPT/HCPCS: A0425; A0429 ==

== ENCOUNTER 2018-04-23 08:59 | Emergency (ER) | payer MEDICARE, OTHER ==
[2018-04-23] MEDS ORDERED: MECLIZINE 12.5 MG TABLET PO STA (09:13)
[2018-04-23] MEDS ORDERED: SODIUM CHLORIDE 0.9% 1,000 ML IV ONE (09:14)
--- NOTE | 2018-04-23 09:20 | ED Physician Documentation ---
History of Present Illness - Stated complaint Stated Complaint: DIZZY/WEAK - Chief complaint Chief Complaint: General - History obtained from History obtained from: Patient, Family (Sister and niece.) - Additonal information Additional information: The patient is a 77-year-old female who arrives via ambulance complaining of dizziness, with the room spinning, and near syncope, just prior to arrival. This occurred while she was sitting after taking a shower. She denies any chest pain or associated shortness of breath. She denies palpitations today, but did experience palpitations yesterday. Her symptoms are worse with movement. She experienced mild nausea, without vomiting. She denies history of similar symptoms in the past. She does have a history of coronary artery disease, status post coronary stents. She was hospitalized here in January 2018 with congestive heart failure. She also has history of chronic renal insufficiency with renal artery stenosis, and sarcoidosis of the lung and lymph nodes. About 1 month ago her antihypertensive medication was changed from metoprolol to carvedilol, and she also started furosemide. Review of Systems Constitutional: reports: Other (dizziness). denies: Fever Eyes: denies: Decreased vision Ears: denies: Tinnitus/ringing Nose: denies: Congestion Throat: denies: Sore throat Cardiac: denies: Chest pain / pressure, Palpitations Respiratory: denies: Dyspnea, Cough GI: reports: Nausea. denies: Abdominal Pain, Vomiting : denies: Dysuria Skin: denies: Rash Musculoskeletal: denies: Neck pain, Back pain, Joint pain Neurologic: reports: Generalized weakness, Near syncope. 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 Cardiovascular: Coronary stent HEENT: Cataracts - Present Medications Home Medications: Ambulatory Orders Medication Instructions Recorded Confirmed Simvastatin 20 mg PO QPM 06/05/14 04/23/18 Levothyroxine Sodium 75 mcg PO QDAC 10/16/17 04/23/18 Hydroxychloroquine Sulfate 200 mg PO DAILY 02/17/18 04/23/18 Omeprazole 40 mg PO QDAC 02/17/18 04/23/18 Warfarin Sodium 1.5 mg PO DAILY 02/17/18 04/23/18 Biotin 1,000 mcg PO DAILY 02/18/18 04/23/18 Cyanocobalamin (Vitamin B-12) 3,000 mcg PO DAILY 02/18/18 04/23/18 [Vitamin B-12] Cholecalciferol [Vitamin D3] 5,000 unit PO DAILY capsule 02/19/18 04/23/18 Nitroglycerin 0.4 mg/Hr Patch 1 each TD DAILY #30 patch 02/19/18 04/23/18 [Nitro-Dur] Carvedilol 6.25 mg PO DAILY 04/23/18 04/23/18 Furosemide 20 mg PO DAILY 04/23/18 04/23/18 Isosorbide Mononitrate ER [Imdur] 30 mg PO DAILY 04/23/18 04/23/18 Meclizine HCl [Motion Sickness 25 mg PO TID PRN #15 tablet 04/23/18 Relief] Nitrofurantoin Monohyd/M-Cryst 100 mg PO BID #10 capsule 04/23/18 [Macrobid 100 mg Capsule] - Allergies Allergies/Adverse Reactions: Allergies Allergy/AdvReac Type Severity Reaction Status Date / Time Penicillins Allergy Anaphylaxis Verified 10/16/17 18:28 shellfish derived Allergy Hives Verified 10/16/17 18:28 tree nut Allergy Respiratory Verified 10/16/17 18:28 codeine AdvReac Hallucinati Verified 10/16/17 18:28 ons bleach AdvReac Respiratory Uncoded 01/28/17 13:59 - Social History Does the pt smoke?: No Smoking Status: Never smoker Does the pt drink ETOH?: No Does the pt have substance abuse?: No - Immunizations Immunizations are current?: No Immunizations: TDAP >10years/unknown - POLST Patient has POLST: Yes PD ED PE NORMAL - Vitals Vital signs reviewed: Yes (borderline hypertension) - General General: Alert and oriented X 3, Well developed/nourished, Other (Alert, somewhat frail, elderly female.) - HEENT HEENT: Atraumatic, EOMI, Pharynx benign, Other (No nystagmus.) - Neck Neck: Supple, no meningeal sign, No adenopathy - Cardiac Cardiac: RRR - Respiratory Respiratory: No respiratory distress, Clear bilaterally - Abdomen Abdomen: Soft, Non tender, Other (Scaphoid abdomen.) - Back Back: No CVA TTP - Derm Derm: No rash - Extremities Extremities: No edema, No calf tenderness / cord - Neuro Neuro: Alert and oriented X 3, No motor deficit, No sensory deficit, Normal speech Results - Vitals Vitals: Vital Signs - 24 hr 04/23/18 04/23/18 04/23/18 09:58 10:40 11:54 Heart Rate 60 58 L 60 Respiratory 18 18 15 Rate Blood Pressure 205/88 H 171/96 H 183/103 H O2 Saturation 97 97 100 04/23/18 04/23/18 12:26 12:49 Heart Rate 63 62 Respiratory 16 18 Rate Blood Pressure 188/97 H 188/81 H O2 Saturation 100 100 Oxygen O2 Source [] Room air O2 Source Room air - EKG (time done) 09:05 Rate: Rate (enter#) (57) Rhythm: NSR [place]: Normal Intervals: Normal VA QRS: Normal Ischemia: T wave inversion (TWI in lateral precordial leads V5-6, with nonspecific T-wave flattening, unchanged from previous EKG.) Compare to prior EKG: Unchanged from prior EKG Computer interpretation: Agree with computer - Labs Labs: Microbiology 04/23/18 11:50 Urine Culture - Preliminary Urine,Random Laboratory Tests 04/23/18 04/23/18 04/23/18 09:25 09:25 09:25 WBC 8.0 RBC 4.03 L Hgb 11.7 L Hct 34.1 L MCV 84.7 MCH 29.0 MCHC 34.2 RDW 14.2 Plt Count 237 MPV 7.4 L Neut # (Auto) 6.6 Lymph # (Auto) 0.4 L [place] # (Auto) 0.8 Eos # (Auto) 0.2 Baso # (Auto) 0.0 Absolute Nucleated RBC 0.00 Nucleated RBC % 0.0 Sodium 138 Potassium 3.1 L Chloride 100 L Carbon Dioxide 28 Anion Gap 10.0 BUN 32 H Creatinine 1.8 H Estimated GFR (MDRD) 27 L Glucose 115 H Calcium 8.9 Total Bilirubin 0.7 AST 23 ALT 15 Alkaline Phosphatase 73 Troponin I < 0.04 Total Protein 6.5 L Albumin 3.5 Globulin 3.0 Albumin/Globulin Ratio 1.2 Lipase 42 Urine Color Urine Clarity Urine pH Ur Specific [place] Urine Protein Urine Glucose (UA) Urine Ketones Urine Occult Blood Urine Nitrite Urine Bilirubin Urine Urobilinogen Ur Leukocyte Esterase Urine RBC Urine WBC Ur Epithelial Cells Ur Squamous Epith Cells Urine Bacteria Urine Casts Ur Microscopic Review Urine Culture Comments 04/23/18 11:50 WBC RBC Hgb Hct MCV MCH MCHC RDW Plt Count MPV Neut # (Auto) Lymph # (Auto) [place] # (Auto) Eos # (Auto) Baso # (Auto) Absolute Nucleated RBC Nucleated RBC % Sodium Potassium Chloride Carbon Dioxide Anion Gap BUN Creatinine Estimated GFR (MDRD) Glucose Calcium Total Bilirubin AST ALT Alkaline Phosphatase Troponin I Total Protein Albumin Globulin Albumin/Globulin Ratio Lipase Urine Color YELLOW Urine Clarity HAZY Urine pH 6.5 Ur Specific [place] 1.020 Urine Protein NEGATIVE Urine Glucose (UA) NEGATIVE Urine Ketones NEGATIVE Urine Occult Blood NEGATIVE Urine Nitrite NEGATIVE Urine Bilirubin NEGATIVE Urine Urobilinogen 0.2 (NORMAL) Ur Leukocyte Esterase MODERATE H Urine RBC 0-5 Urine WBC 11-25 H Ur Epithelial Cells RARE Renal Tubular Ur Squamous Epith Cells RARE Squamous Urine Bacteria Many H Urine Casts 11-25 Hyaline Casts Ur Microscopic Review INDICATED Urine Culture Comments INDICATED PD MEDICAL DECISION MAKING - ED course Complexity details: reviewed old records, reviewed results, re-evaluated patient, considered differential, d/w patient, d/w family ED course: The patient's presentation is most consistent with positional vertigo. Her laboratory analysis also revealed evidence of urinary tract infection and mild hypokalemia. Her urinalysis is positive for pyuria and bacteriuria; culture and sensitivity are pending. Her potassium is low at 3.1. BUN/creatinine are moderately elevated at 32 and 1.8, which is similar to previous lab values. Her presentation does not suggest sepsis or stroke, and I doubt cardiac dysrhythmia. Treatment in the emergency department included administration of normal saline 1 L IV, meclizine 25 mg orally, potassium 20 mEq orally, and nitrofurantoin 100 mg orally. She felt subjectively much improved following the above treatment, and was able to demonstrate ability to ambulate in the hallway without lightheadedness or dizziness. She is being discharged with prescriptions for Macrobid and for meclizine. I discussed with her and her family the expected course of illness, antibiotic and symptomatic treatment, outpatient follow-up, as well as potentially worrisome signs or symptoms that should prompt reevaluation in the emergency department. Departure - Departure Disposition: 01 Home, Self Care Clinical Impression: Vertigo, Hypokalemia UTI (urinary tract infection) Qualifiers: Urinary tract infection type: acute cystitis Hematuria presence: without hematuria Qualified Code(s): N30.00 - Acute cystitis without hematuria Condition: Stable Instructions: ED UTI Cystitis Female, ED Vertigo Unspecified Follow-Up: Jane Camacho MD [Primary Care Provider] - Prescriptions: Meclizine HCl [Motion Sickness Relief] 25 mg PO TID PRN #15 tablet PRN Reason: Dizziness Nitrofurantoin Monohyd/M-Cryst [Macrobid 100 mg Capsule] 100 mg PO BID #10 capsule Comments: Drink plenty of fluids, including cranberry juice. Take Macrobid twice daily as prescribed. He can also use meclizine as prescribed if needed for dizziness. Follow-up with your primary physician within 2 weeks. Call to schedule an appointment. Return to the emergency department if you develop increasing dizziness, persistent vomiting or lightheadedness, fever with shaking chills, or otherwise worsening symptoms. Discharge Date/Time: 04/23/18 13:02
[2018-04-23 09:33] LABS: BASOPHILS % (AUTO) 0.4 %; EOSINOPHILS # (AUTO) 0.2 10^3/uL (0.0-0.7); EOSINOPHILS % (AUTO) 2.7 %; HGB - HEMOGLOBIN 11.7 g/dL (12.0-16.0); LYMPHOCYTES # (AUTO) 0.4 10^3/uL (1.5-3.5); MEAN CORPUSCULAR HGB CONC 34.2 g/dL (32.0-36.0); MEAN CORPUSCULAR VOLUME 84.7 fL (81.0-99.0); MEAN PLATELET VOLUME 7.4 fL (7.9-10.8); MONOCYTES # (AUTO) 0.8 10^3/uL (0.0-1.0); MONOCYTES % (AUTO) 9.5 %; NEUTROPHILS # (AUTO) 6.6 10^3/uL (1.5-6.6); NEUTROPHILS % (AUTO) 82.4 %; PLT - PLATELET COUNT 237 10^3/uL (130-450); RED BLOOD COUNT 4.03 10^6/uL (4.20-5.40); RED CELL DISTRIBUTION WIDTH 14.2 % (12.0-15.0)
[2018-04-23 09:48] LABS: ALBUMIN 3.5 g/dL (3.2-5.5); ALBUMIN/GLOBULIN RATIO 1.2 (1.0-2.2); BILIRUBIN,TOTAL 0.7 mg/dL (0.2-1.0); CALCIUM 8.9 mg/dL (8.5-10.3); CREATININE 1.8 mg/dL (0.4-1.0); TOTAL PROTEIN 6.5 g/dL (6.7-8.2)
[2018-04-23] MEDS ORDERED: POTASSIUM CHLORIDE 20 MEQ TABLET PO STA (10:21)
[2018-04-23 11:59] LABS: BILIRUBIN,URINE NEGATIVE (NEGATIVE); GLUCOSE, URINE (UA) NEGATIVE (NEGATIVE); KETONES,URINE (UA) NEGATIVE (NEGATIVE); LEUKOCYTE ESTERASE, URINE MODERATE (NEGATIVE); NITRITE,URINE NEGATIVE (NEGATIVE); OCCULT BLOOD,URINE NEGATIVE (NEGATIVE); PH,URINE 6.5 PH (5.0-7.5); PROTEIN,URINE NEGATIVE (NEGATIVE); UROBILINOGEN,URINE 0.2 (NORMAL) E.U./dL (NORMAL)
[2018-04-23 12:03] LABS: CLARITY,URINE HAZY (CLEAR)
[2018-04-23 12:07] LABS: BACTERIA,URINE Many /HPF (None Seen); CASTS, URINE 11-25 Hyaline Casts /LPF; RBC,URINE 0-5 /HPF (0-5); SQUAMOUS EPITHELIAL CELL,UR RARE Squamous (<= Few)
[2018-04-23] MEDS ORDERED: NITROFURANTOIN MACRO 100 MG CAPSULE PO STA (12:42)
[2018-04-23 12:50] VITALS: BP 188/81
== END 2018-04-23 13:02 | disposition home or self-care (01) ==
LOC: EDUNIT# → ED 08:59
DX: R42 Dizziness and giddiness (principal); E87.6 Hypokalemia; N30.00 Acute cystitis without hematuria; R94.31 Abnormal electrocardiogram [ECG] [EKG]; I10 Essential (primary) hypertension; I25.10 Atherosclerotic heart disease of native coronary artery without angina pectoris; Z95.5 Presence of coronary angioplasty implant and graft; Z96.659 Presence of unspecified artificial knee joint
CPT/HCPCS: 36415; 80053; 81001; 83690; 84484; 85025; 87077; 87086; 87181; 93005; 99283; 99284; A9270; 81003

== ENCOUNTER 2018-04-26 09:31 | Outpatient (CLI) | payer MEDICARE, OTHER | END 2018-04-26 23:59 | LOC: LAB.N 09:31 | PROVIDERS: ATTEND Family Medicine | DX: I48.91 Unspecified atrial fibrillation (principal) | CPT/HCPCS: 85610 ==

== ENCOUNTER 2018-05-03 09:56 | Outpatient (CLI) | payer MEDICARE, OTHER | END 2018-05-03 23:59 | disposition home or self-care (01) | LOC: LAB.N 09:56 | PROVIDERS: ATTEND Family Medicine | DX: I48.91 Unspecified atrial fibrillation (principal) | CPT/HCPCS: 85610 ==

== ENCOUNTER 2018-05-10 08:00 | Outpatient (CLI) | payer MEDICARE, OTHER | END 2018-05-10 08:01 | disposition home or self-care (01) | LOC: LAB.N 08:00 | PROVIDERS: ATTEND Family Medicine | DX: I48.91 Unspecified atrial fibrillation (principal) | CPT/HCPCS: 85610 ==

== ENCOUNTER 2018-05-10 11:09 | Outpatient (CLI) | payer MEDICARE, OTHER | END 2018-05-10 11:10 | disposition critical access hospital (66) | LOC: EMS 11:09 | PROVIDERS: ATTEND Surgery | DX: S00.81XA Abrasion of other part of head, initial encounter (principal); W01.198A Fall on same level from slipping, tripping and stumbling with subsequent striking against other object, initial encounter; Y93.01 Activity, walking, marching and hiking; Y92.512 Supermarket, store or market as the place of occurrence of the external cause | CPT/HCPCS: A0425; A0429 ==

== ENCOUNTER 2018-05-10 11:31 | Emergency (ER) | payer MEDICARE, OTHER ==
[2018-05-10 12:24] LABS: BASOPHILS # (AUTO) 0.2 10^3/uL (0.0-0.1); BASOPHILS % (AUTO) 2.3 %; EOSINOPHILS # (AUTO) 0.3 10^3/uL (0.0-0.7); EOSINOPHILS % (AUTO) 3.8 %; HGB - HEMOGLOBIN 11.5 g/dL (12.0-16.0); LYMPHOCYTES # (AUTO) 0.4 10^3/uL (1.5-3.5); LYMPHOCYTES % (AUTO) 4.8 %; MEAN CORPUSCULAR HEMOGLOBIN 28.3 pg (27.0-31.0); MEAN CORPUSCULAR HGB CONC 34.9 g/dL (32.0-36.0); MEAN CORPUSCULAR VOLUME 81.3 fL (81.0-99.0); MEAN PLATELET VOLUME 6.9 fL (7.9-10.8); MONOCYTES # (AUTO) 0.6 10^3/uL (0.0-1.0); MONOCYTES % (AUTO) 7.7 %; NEUTROPHILS # (AUTO) 6.2 10^3/uL (1.5-6.6); NEUTROPHILS % (AUTO) 81.4 %; PLT - PLATELET COUNT 291 10^3/uL (130-450); RED BLOOD COUNT 4.05 10^6/uL (4.20-5.40); RED CELL DISTRIBUTION WIDTH 14.2 % (12.0-15.0); WHITE BLOOD COUNT 7.6 x10^3/uL (4.8-10.8)
[2018-05-10 12:29] LABS: INR 3.8 (0.8-1.2); PT - PROTHROMBIN TIME 41.7 secs (9.9-12.6)
[2018-05-10 12:30] LABS: CALCIUM 8.9 mg/dL (8.5-10.3); CREATININE 1.8 mg/dL (0.4-1.0)
[2018-05-10 13:02] LABS: PLATELET ESTIMATE, MANUAL NORMAL (130-450,000) (NORMAL); PLATELET MORPHOLOGY NORMAL APPEARANCE (NORMAL); RBC MORPHOLOGY (MULTIPLE) NORMAL APPEARANCE (NORMAL)
--- NOTE | 2018-05-10 13:15 | CT Report ---
Reason: facial trauma Procedure Date: 05/10/2018 Accession Number: [id number] / [id number] Procedure: CT - Facial Bones W/O CPT Code: FULL RESULT: EXAM: CT MAXILLOFACIAL WITHOUT CONTRAST EXAM DATE: 05/10/2018 12:50 PM. CLINICAL HISTORY: Facial trauma. Fall. COMPARISONS: HEAD W/O 02/17/2018 2:28 PM HEAD W/O 05/10/2018 12:37 PM. TECHNIQUE: Thin-section axial images were acquired of the face without contrast. Post-processing: Coronal and sagittal reformats. Other: None. In accordance with CT protocol optimization, one or more of the following dose reduction techniques were utilized for this exam: automated exposure control, adjustment of mA and/or KV based on patient size, or use of iterative reconstructive technique. FINDINGS: Soft Tissue: There is mild soft tissue swelling over the bridge of the nose. The infratemporal fossa and parapharyngeal spaces are unremarkable. Orbits: Symmetric and unremarkable. There is evidence of prior bilateral lens surgery. Bones: There is subtle linear lucency suspicious for an acute nondisplaced fracture of the right nasal bone (series 5 image 5). There is subtle linear lucency suspicious for an acute fracture of the left nasal bone (series 6, image 52). The remainder of visualized maxillofacial bones appear intact. No bone lesion. Temporomandibular Joints: No subluxation or dislocation. There is severe degenerative changes of the right temporomandibular joint. There are mild degenerative changes of the left temporomandibular joint. Sinuses: Normal. No mucosal thickening or fluid levels. Other: None. IMPRESSION: 1. Findings suspicious for acute nondisplaced fractures of the bilateral nasal bones with adjacent soft tissue swelling. 2. Severe degenerative changes of the right temporomandibular joint. RADIA
--- NOTE | 2018-05-10 13:15 | CT Report ---
Reason: head injury on Warfarin Procedure Date: 05/10/2018 Accession Number: [id number] / [id number] Procedure: CT - Head W/O CPT Code: FULL RESULT: EXAM: CT HEAD EXAM DATE: 05/10/2018 12:50 PM. CLINICAL HISTORY: 77-year-old on anticoagulation with fall and head strike. Evaluate for intracranial pathology. COMPARISON: Head w/o contrast 02/17/2018 2:28 PM. TECHNIQUE: Multiaxial CT images were obtained from the foramen magnum to the vertex. Reformats: Sagittal and coronal. IV contrast: None. In accordance with CT protocol optimization, one or more of the following dose reduction techniques were utilized for this exam: automated exposure control, adjustment of mA and/or KV based on patient size, or use of iterative reconstructive technique. FINDINGS: Parenchyma: No acute parenchymal hemorrhage, mass, or midline shift. Mild to moderate bilateral areas of white matter hypoattenuation seen that appears similar to CT head 02/17/2018. There is no convincing CT evidence of an acute infarct. Cortical volume appears similar to prior study. Extraaxial Spaces: Sulci and cisterns appear prominent but appropriate for the extent of volume loss. No subdural or epidural collections identified. Ventricles: Normal in size and position. Sinuses and Orbits: Changes of bilateral lens replacement. Visualized paranasal sinuses, mastoid air cells, and middle ear cavities appear clear. Bones: No evidence of fracture or calvarial defect. Changes of hyperostosis frontalis internus. Other: Vascular calcifications of the cavernous ICA segments. IMPRESSION: 1. No definite acute intracranial pathology seen; specifically, no acute infarct, acute intracranial hemorrhage, mass, hydrocephalus, or midline shift. 2. No definite calvarial fracture. 3. Mild to moderate white matter changes that appear similar to CT head 02/17/2018 and may represent sequela of chronic small vessel ischemic disease. RADIA
--- NOTE | 2018-05-10 13:24 | CT Report ---
Reason: fall, head injury Procedure Date: 05/10/2018 Accession Number: [id number] / [id number] Procedure: CT - Cervical Spine W/O CPT Code: FULL RESULT: EXAM: CT CERVICAL SPINE WITHOUT CONTRAST DATE: 05/10/2018 12:50 PM. HISTORY: Fall, head injury. COMPARISONS: Head without contrast 02/17/2018 2:28 PM Cervical spine without contrast 10/16/2017 7:44 PM. TECHNIQUE: Thin-section axial images were acquired of the cervical spine without contrast. Post-processing: Coronal and sagittal reformats. Other: None. In accordance with CT protocol optimization, one or more of the following dose reduction techniques were utilized for this exam: automated exposure control, adjustment of mA and/or KV based on patient size, or use of iterative reconstructive technique. FINDINGS: Alignment: Straightening of the normal cervical lordosis. Mild rightward curvature of the cervical spine. Bones: No acute fracture. There is a sclerotic lesion seen within the right aspect of the C6 vertebral body that may represent bone island. Interspace Levels/Facets: C1-C2: Small posterior pannus with slight indentation of the ventral thecal sac. C2-C3: Mild endplate degenerative change with mild loss of disk height. Small posterior disk osteophyte complex. Bilateral uncovertebral osteophyte and arthritic facet disease. Mild spinal canal stenosis. Mild right and mild to moderate left neural foraminal narrowing. This appears similar to cervical spine 10/16/2017. C3-C4: Mild endplate degenerative change with mild loss of disk height. Small broad-based disk osteophyte complex. Bilateral uncovertebral osteophyte and arthritic facet disease. Mild spinal canal stenosis. Moderate bilateral neural foraminal narrowing. Findings appear similar. C4-C5: Mild degenerative change with mild loss of disk height. Small broad-based disk osteophyte complex. Bilateral uncovertebral osteophyte and arthritic facet disease. Mild spinal canal stenosis. Mild right and moderate left neural foraminal narrowing. Findings appear similar. C5-C6: Moderate endplate degenerative change with moderate loss of disk height. Small broad-based disk osteophyte complex with superimposed right paracentral disk osteophyte. Bilateral uncovertebral osteophyte and arthritic facet disease. Mild to moderate spinal canal stenosis. Severe bilateral neural foraminal narrowing. Findings appear similar. C6-C7: Mild endplate degenerative change with mild loss of disk height. Bilateral uncovertebral osteophyte and arthritic facet disease. No definite spinal canal stenosis. Mild to moderate left neural foraminal narrowing. C7-T1: Mild to moderate endplate degenerative change with mild to moderate loss of disk height. Bilateral arthritic facet disease. No spinal canal stenosis. No definite neural foraminal narrowing. Musculature: Mild fatty atrophy of the multifidus muscles. Other: Right thyroid lobe hypodensity seen measuring up to 7 mm (series 5, image 59) similar to prior study. Pleural-parenchymal scarring of the visualized lung apices. There is extensive atherosclerotic plaque involving the aortic arch. IMPRESSION: 1. No acute fracture or traumatic subluxation. 2. Straightening of normal cervical lordosis. 3. Multilevel degenerative changes that appear similar to CT cervical spine 10/16/2017. C2-C3: Mild spinal canal stenosis. Mild right and mild to moderate left neural foraminal narrowing. C3-C4: Mild spinal canal stenosis. Moderate bilateral neural foraminal narrowing. C4-C5: Mild spinal canal stenosis. Mild right and moderate left neural foraminal narrowing. C5-C6: Mild to moderate spinal canal stenosis. Severe bilateral neural foraminal narrowing. C6-C7: No definite spinal canal stenosis. Mild to moderate left neural foraminal narrowing. RADIA
--- NOTE | 2018-05-10 13:50 | XRAY Report ---
Reason: injury Procedure Date: 05/10/2018 Accession Number: [id number] / [id number] Procedure: XR - Hand 3 View LT CPT Code: FULL RESULT: EXAM: LEFT HAND RADIOGRAPHY EXAM DATE: 05/10/2018 01:30 PM. CLINICAL HISTORY: Injury. COMPARISON: WRIST 4 VIEW RT 01/28/2017 2:20 PM. TECHNIQUE: 3 views. FINDINGS: Bones: There is moderate to severe osteoarthritis. There is osteophyte formation with joint space narrowing and sclerosis of the proximal and distal interphalangeal joints. There is degenerative disease and joint space narrowing with spurring of the first carpal metacarpal joint. No acute fracture Joints: No dislocation. Soft Tissues: There is soft tissue swelling associated with osteophyte spurring, greatest in the second distal interphalangeal joint. There are vascular calcifications. IMPRESSION: 1. No acute fracture. 2. Moderate to severe osteoarthritis. RADIA
--- NOTE | 2018-05-10 13:52 | XRAY Report ---
Reason: knee pain Procedure Date: 05/10/2018 Accession Number: [id number] / [id number] Procedure: XR - Knee 3 View LT CPT Code: FULL RESULT: EXAM: LEFT KNEE RADIOGRAPHY EXAM DATE: 05/10/2018 01:30 PM. CLINICAL HISTORY: Knee pain. COMPARISON: WRIST 4 VIEW RT 01/28/2017 2:20 PM. TECHNIQUE: 3 views. FINDINGS: Bones: There is medial patellar spurring and medial compartment mild spurring. No acute fracture. Joints: There is medial compartment mild joint space narrowing. No subluxation or dislocation. Soft Tissues: There are atherosclerotic vascular calcifications. IMPRESSION: 1. Degenerative disease in the medial compartment and patellofemoral compartment. No fracture. RADIA
[2018-05-10 14:08] VITALS: BP 101/61
--- NOTE | 2018-05-10 14:24 | ED Physician Documentation ---
PD HPI Fall - Stated complaint Stated Complaint: GLF - Chief complaint Chief Complaint: Trauma Hd/Nk - History obtained from History obtained from: Patient - History of Present Illness Mechanism of injury: Tripped, Slipped Fall distance: Sitting position Timing - onset: Today Injury(ies) location: Head, Face, Neck, Left Uppper Extremity, Left Lower Extremity Severity Comments: Moderate Quality of pain: Pain Symptoms improve with: Nothing Worsens with: Movement Contributing factors: Anticoagulated Similar symptoms before: Has not had sx before Recently seen: Not recently seen - Additional information Additional information: 77-year-old female presents after a mechanical fall. The patient reports tripping and falling striking her face. The patient was lightheaded after the event and denies chest pain or palpitations before or after. The patient reports head, face, neck, left hand and left knee pain Review of Systems Constitutional: denies: Fever, Chills Eyes: denies: Discharge Ears: denies: Ear pain Nose: denies: Congestion Throat: denies: Sore throat Cardiac: denies: Chest pain / pressure, Palpitations Respiratory: denies: Cough GI: denies: Abdominal Pain : denies: Dysuria Skin: reports: Other (Facial abrasions) Musculoskeletal: reports: Extremity pain. denies: Back pain Neurologic: reports: Head injury. 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 Cardiovascular: Coronary stent HEENT: Cataracts - Present Medications Home Medications: Ambulatory Orders Medication Instructions Recorded Confirmed Simvastatin 20 mg PO QPM 06/05/14 05/10/18 Levothyroxine Sodium 75 mcg PO QDAC 10/16/17 05/10/18 Hydroxychloroquine Sulfate 200 mg PO DAILY 02/17/18 05/10/18 Omeprazole 40 mg PO QDAC 02/17/18 05/10/18 Warfarin Sodium 1.5 mg PO DAILY 02/17/18 05/10/18 Biotin 1,000 mcg PO DAILY 02/18/18 05/10/18 Cyanocobalamin (Vitamin B-12) 3,000 mcg PO DAILY 02/18/18 05/10/18 [Vitamin B-12] Cholecalciferol [Vitamin D3] 5,000 unit PO DAILY capsule 02/19/18 05/10/18 Nitroglycerin 0.4 mg/Hr Patch 1 each TD DAILY #30 patch 02/19/18 05/10/18 [Nitro-Dur] Carvedilol 6.25 mg PO DAILY 04/23/18 05/10/18 Furosemide 20 mg PO DAILY 04/23/18 05/10/18 Isosorbide Mononitrate ER [Imdur] 30 mg PO DAILY 04/23/18 05/10/18 Meclizine HCl [Motion Sickness 25 mg PO TID PRN #15 tablet 04/23/18 05/10/18 Relief] Nitrofurantoin Monohyd/M-Cryst 100 mg PO BID #10 capsule 04/23/18 05/10/18 [Macrobid 100 mg Capsule] - Allergies Allergies/Adverse Reactions: Allergies Allergy/AdvReac Type Severity Reaction Status Date / Time Penicillins Allergy Anaphylaxis Verified 05/10/18 11:51 shellfish derived Allergy Hives Verified 05/10/18 11:51 tree nut Allergy Respiratory Verified 05/10/18 11:51 codeine AdvReac Hallucinati Verified 05/10/18 11:51 ons bleach AdvReac Respiratory Uncoded 01/28/17 13:59 - Social History Does the pt smoke?: No Smoking Status: Never smoker Does the pt drink ETOH?: No Does the pt have substance abuse?: No - Immunizations Immunizations are current?: No Immunizations: TDAP current <10years - POLST Patient has POLST: Yes PD ED PE NORMAL - General General: Alert and oriented X 3, No acute distress - Neck Neck: No: No bony TTP (Tenderness to palpation) - Cardiac Cardiac: RRR, Strong equal pulses - Respiratory Respiratory: No respiratory distress - Abdomen Abdomen: Soft, Non tender - Back Back: No spinal TTP - Derm Derm: Other (Multiple facial abrasions) - Extremities Extremities: No deformity, Normal ROM s pain, No edema. No: No tenderness to palpate (The patient has tenderness to palpation of the left hand, and left knee. The patient has full active range of motion of the bilateral shoulders, elbows, wrist and hands. The patient has bilateral normal range of motion of the bilateral hips, knees and ankles and foot. Normal dorsalis pedis pulse. No crepitus. No lacerations. The patient has multiple Abrasions on her upper extremities and lower extremities) - Neuro Neuro: Alert and oriented X 3, damage cutter 2-12 intact, No motor deficit, Normal speech - Psych Psych: Normal mood PD ED PE EXPANDED - HEENT HEENT Visual: 1 - abrasion (The patient has multiple facial abrasions, on the bridge of the nose, the mid face and abrasions through the lip. There is no area of laceration to suture. The patient has tenderness in the nose and face) Results - Vitals Vitals: Vital Signs - 24 hr 05/10/18 05/10/18 05/10/18 11:36 12:11 14:07 Temperature 36.8 C Heart Rate 56 L 54 L 57 L Respiratory 16 14 14 Rate Blood Pressure 136/74 H 152/73 H 101/61 O2 Saturation 100 99 Oxygen O2 Source [] Room air O2 Source Room air - Labs Labs: Laboratory Tests 05/10/18 05/10/18 05/10/18 12:10 12:10 12:10 WBC 7.6 RBC 4.05 L Hgb 11.5 L Hct 32.9 L MCV 81.3 MCH 28.3 MCHC 34.9 RDW 14.2 Plt Count 291 MPV 6.9 L Neut # (Auto) 6.2 Lymph # (Auto) 0.4 L [place] # (Auto) 0.6 Eos # (Auto) 0.3 Baso # (Auto) 0.2 H Absolute Nucleated RBC 0.00 Nucleated RBC % 0.0 Manual Slide Review Indicated WBC Morphology NORMAL APPEARANCE Platelet Estimate NORMAL (130-450,000) Platelet Morphology NORMAL APPEARANCE RBC Morph Micro Appear NORMAL APPEARANCE PT 41.7 H INR 3.8 H Sodium 137 Potassium 3.5 Chloride 96 L Carbon Dioxide 31 Anion Gap 10.0 BUN 38 H Creatinine 1.8 H Estimated GFR (MDRD) 27 L Glucose 95 Calcium 8.9 - Rads (name of study) CT head/neck Radiology: Final report received, See rad report XR hand Radiology: Final report received, See rad report XR knee Radiology: Final report received, See rad report CT face Radiology: Final report received PD MEDICAL DECISION MAKING - ED course ED course: The patient is anticoagulated and had a fall today, a CT scan of her head, face and neck were performed to rule out fracture and intracranial hemorrhage. There is no intracranial hemorrhage, the patient does have a nasal bone fracture. The patient's INR was slightly elevated. And reevaluation the patient is resting comfortably and her wounds were once again reevaluated after being cleaned. There is no area that would benefit from suturing since these are mostly deep lacerations wound. I discussed the findings with the patient, I recommended not taking her Coumadin tonight and having her INR rechecked tomorrow. The patient will follow up with primary care. The patient will follow up with ENT for the nasal bone fracture. I discussed warning signs and recommended returning for any worsening or any concerns Departure - Departure Disposition: 01 Home, Self Care Clinical Impression: Fall Qualifiers: Encounter type: initial encounter Qualified Code(s): W19.XXXA - Unspecified fall, initial encounter Head injury Qualifiers: Encounter type: initial encounter Qualified Code(s): S09.90XA - Unspecified injury of head, initial encounter Facial contusion Qualifiers: Encounter type: initial encounter Qualified Code(s): S00.83XA - Contusion of other part of head, initial encounter Facial abrasion Qualifiers: Encounter type: initial encounter Qualified Code(s): S00.81XA - Abrasion of other part of head, initial encounter Abrasion of lip Qualifiers: Encounter type: initial encounter Qualified Code(s): S00.511A - Abrasion of lip, initial encounter Hand contusion Qualifiers: Encounter type: initial encounter Laterality: unspecified laterality Qualified Code(s): S60.229A - Contusion of unspecified hand, initial encounter Contusion, knee Qualifiers: Encounter type: initial encounter Laterality: unspecified laterality Qualified Code(s): S80.00XA - Contusion of unspecified knee, initial encounter Nasal fracture Qualifiers: Encounter type: initial encounter Fracture type: closed Qualified Code(s): S02. 2XXA - Fracture of nasal bones, initial encounter for closed fracture Condition: Good Instructions: Fx Nose Tx Ch, ED Contusion Soft Tissue, ED Contusion Hand, ED Head Injury Closed, ED Abrasion Ch, ED Contusion Hand Ch Follow-Up: [facility] [Provider Group] (Call to schedule an appointment ) Jane Camacho MD [Primary Care Provider] - Within 1 week Comments: Please return to the emergency department for worsening symptoms or any concerns Discharge Date/Time: 05/10/18 14:40
== END 2018-05-10 14:40 | disposition home or self-care (01) ==
LOC: EDUNIT# → ED 11:31
DX: S09.90XA Unspecified injury of head, initial encounter (principal); S00.83XA Contusion of other part of head, initial encounter; S00.511A Abrasion of lip, initial encounter; S00.81XA Abrasion of other part of head, initial encounter; S02.2XXA Fracture of nasal bones, initial encounter for closed fracture; S80.00XA Contusion of unspecified knee, initial encounter; S60.229A Contusion of unspecified hand, initial encounter; W01.10XA Fall on same level from slipping, tripping and stumbling with subsequent striking against unspecified object, initial encounter; Y93.01 Activity, walking, marching and hiking; Y92.512 Supermarket, store or market as the place of occurrence of the external cause; R79.1 Abnormal coagulation profile; I10 Essential (primary) hypertension; I25.10 Atherosclerotic heart disease of native coronary artery without angina pectoris; Z95.5 Presence of coronary angioplasty implant and graft; Z79.01 Long term (current) use of anticoagulants
CPT/HCPCS: 36415; 70450; 70486; 72125; 80048; 85025; 85610; 99284

== ENCOUNTER 2018-05-17 08:44 | Outpatient (CLI) | payer MEDICARE, OTHER | END 2018-05-17 23:59 | disposition home or self-care (01) | LOC: LAB.N 08:44 | PROVIDERS: ATTEND Family Medicine | DX: I48.91 Unspecified atrial fibrillation (principal) | CPT/HCPCS: 85610 ==

== ENCOUNTER 2018-05-29 10:27 | Outpatient (CLI) | payer MEDICARE, OTHER | END 2018-05-29 23:59 | disposition home or self-care (01) | LOC: LAB.N 10:27 | PROVIDERS: ATTEND Family Medicine | DX: I48.91 Unspecified atrial fibrillation (principal) | CPT/HCPCS: 85610 ==

== ENCOUNTER 2018-06-05 08:00 | Outpatient (CLI) | payer MEDICARE, OTHER | END 2018-06-05 23:59 | disposition home or self-care (01) | LOC: LAB.N 08:00 | PROVIDERS: ATTEND Family Medicine | DX: I48.91 Unspecified atrial fibrillation (principal) | CPT/HCPCS: 85610 ==

== ENCOUNTER 2018-06-13 08:00 | Outpatient (CLI) | payer MEDICARE, OTHER | END 2018-06-13 23:59 | disposition home or self-care (01) | LOC: LAB.N 08:00 | PROVIDERS: ATTEND Family Medicine | DX: I48.91 Unspecified atrial fibrillation (principal) | CPT/HCPCS: 85610 ==

== ENCOUNTER 2018-07-03 08:00 | Outpatient (CLI) | payer MEDICARE, OTHER ==
[2018-07-03 12:53] LABS: BASOPHILS # (AUTO) 0.1 10^3/uL (0.0-0.1); BASOPHILS % (AUTO) 1.8 %; EOSINOPHILS # (AUTO) 0.2 10^3/uL (0.0-0.7); EOSINOPHILS % (AUTO) 4.6 %; LYMPHOCYTES # (AUTO) 0.4 10^3/uL (1.5-3.5); LYMPHOCYTES % (AUTO) 9.2 %; MEAN CORPUSCULAR HEMOGLOBIN 27.5 pg (27.0-31.0); MEAN CORPUSCULAR HGB CONC 32.7 g/dL (32.0-36.0); MEAN CORPUSCULAR VOLUME 84.3 fL (81.0-99.0); MONOCYTES # (AUTO) 0.6 10^3/uL (0.0-1.0); MONOCYTES % (AUTO) 12.7 %; NEUTROPHILS # (AUTO) 3.2 10^3/uL (1.5-6.6); NEUTROPHILS % (AUTO) 71.7 %; PLT - PLATELET COUNT 259 10^3/uL (130-450); RED BLOOD COUNT 3.99 10^6/uL (4.20-5.40); RED CELL DISTRIBUTION WIDTH 14.4 % (12.0-15.0); WHITE BLOOD COUNT 4.4 x10^3/uL (4.8-10.8)
[2018-07-03 13:12] LABS: ALBUMIN 3.7 g/dL (3.2-5.5); ALBUMIN/GLOBULIN RATIO 1.1 (1.0-2.2); ALKALINE PHOSPHATASE 83 IU/L (42-121); ALT ALANINE AMINOTRANSFERASE 14 IU/L (10-60); AST ASPARTATE AMINOTRANSFERASE 19 IU/L (10-42); BILIRUBIN,TOTAL 0.6 mg/dL (0.2-1.0); BUN - BLOOD UREA NITROGEN 29 mg/dL (6-20); CALCIUM 8.9 mg/dL (8.5-10.3); CARBON DIOXIDE - CO2 27 mmol/L (21-32); CHLORIDE 101 mmol/L (101-111); CHOL/HDL RATIO 2.3 (<4.4); CHOLESTEROL 162 mg/dL; CREATININE 1.5 mg/dL (0.4-1.0); GFR - MDRD 33 (>89); GLUCOSE 97 mg/dL (70-100); HDL CHOLESTEROL 70 mg/dL; LDL CHOLESTEROL,CALCULATED 68 mg/dL; SODIUM 140 mmol/L (135-145); VLDL CHOLESTEROL 24 mg/dL
[2018-07-03 13:23] LABS: THYROID STIMULATING HORMONE 2.3 uIU/mL (0.34-5.60)
[2018-07-03 13:25] LABS: FREE T4 (FREE THYROXINE) 1.63 ng/dL (0.58-1.64)
== END 2018-07-03 23:59 | disposition home or self-care (01) ==
LOC: LAB.N 08:00
PROVIDERS: ATTEND Family Medicine
DX: I48.91 Unspecified atrial fibrillation (principal); I10 Essential (primary) hypertension; E78.5 Hyperlipidemia, unspecified; E03.9 Hypothyroidism, unspecified
CPT/HCPCS: 36415; 80053; 80061; 83721; 84439; 84443; 85025; 85610

== ENCOUNTER 2018-07-18 08:00 | Outpatient (CLI) | payer MEDICARE, OTHER | END 2018-07-18 23:59 | disposition home or self-care (01) | LOC: LAB.N 08:00 | PROVIDERS: ATTEND Family Medicine | DX: I48.91 Unspecified atrial fibrillation (principal) | CPT/HCPCS: 85610 ==

== ENCOUNTER 2018-07-19 13:37 | Emergency (ER) | payer MEDICARE, OTHER ==
[2018-07-19 14:23] LABS: BASOPHILS # (AUTO) 0.1 10^3/uL (0.0-0.1); EOSINOPHILS # (AUTO) 0.3 10^3/uL (0.0-0.7); EOSINOPHILS % (AUTO) 3.3 %; HGB - HEMOGLOBIN 10.6 g/dL (12.0-16.0); LYMPHOCYTES # (AUTO) 0.4 10^3/uL (1.5-3.5); LYMPHOCYTES % (AUTO) 5.5 %; MEAN CORPUSCULAR HEMOGLOBIN 26.5 pg (27.0-31.0); MEAN CORPUSCULAR HGB CONC 32.6 g/dL (32.0-36.0); MEAN CORPUSCULAR VOLUME 81.2 fL (81.0-99.0); MEAN PLATELET VOLUME 7.5 fL (7.9-10.8); MONOCYTES # (AUTO) 0.8 10^3/uL (0.0-1.0); MONOCYTES % (AUTO) 9.8 %; NEUTROPHILS # (AUTO) 6.5 10^3/uL (1.5-6.6); NEUTROPHILS % (AUTO) 80.4 %; PLT - PLATELET COUNT 261 10^3/uL (130-450); RED BLOOD COUNT 4.01 10^6/uL (4.20-5.40); RED CELL DISTRIBUTION WIDTH 14.3 % (12.0-15.0)
[2018-07-19 14:28] LABS: INR 1.8 (0.8-1.2); PT - PROTHROMBIN TIME 20.4 secs (9.9-12.6)
[2018-07-19 14:34] LABS: ALBUMIN 3.7 g/dL (3.2-5.5); ALBUMIN/GLOBULIN RATIO 1.2 (1.0-2.2); BILIRUBIN,TOTAL 0.8 mg/dL (0.2-1.0); CREATININE 1.5 mg/dL (0.4-1.0); TOTAL PROTEIN 6.9 g/dL (6.7-8.2)
[2018-07-19] MEDS ORDERED: PROCAINAMIDE 1,000 MG in SODIUM CHLORIDE 0.9% 240 ML IV STA (14:44)
[2018-07-19] MEDS ORDERED: POTASSIUM BICARB 25 MEQ TABLET PO STA (14:45)
--- NOTE | 2018-07-19 14:48 | XRAY Report ---
Reason: Chest Pain Procedure Date: 07/19/2018 Accession Number: [id number] / [id number] Procedure: XR - Chest 1 View X-Ray CPT Code: 71067 FULL RESULT: EXAM: CHEST RADIOGRAPHY EXAM DATE: 07/19/2018 02:33 PM. CLINICAL HISTORY: Chest Pain. COMPARISON: CHEST 2 VIEW 02/17/2018 2:17 PM. TECHNIQUE: 1 view. FINDINGS: Lungs/Pleura: Diffuse interstitial opacity. Blunting of bilateral costophrenic angles raises concern for small pleural effusions. Mediastinum: Cardiomegaly. Dense atherosclerotic aortic arch calcification. Other: Bones appear osteopenic. Convex right lower thoracic scoliosis. IMPRESSION: Mild congestive heart failure. RADIA
--- NOTE | 2018-07-19 14:49 | ED Physician Documentation ---
PD HPI DYSPNEA - Stated complaint Stated Complaint: SOA/CHEST PAIN - Chief complaint Chief Complaint: Cardiac - History obtained from History obtained from: Patient, Family - History of Present Illness Timing - onset: Today Timing - onset during: Rest Timing - duration: Days (1) Timing - details: Gradual onset Pain level max: 0 Pain level now: 0 Improved by: Rest Worsened by: Exertion Associated symptoms: Palpitations. No: Fever, Cough, Hemoptysis, Wheezing, Chest pain / discomfort, Diaphoresis, Bilateral edema, Unilateral edema, Anxiety Similar symptoms before: Diagnosis (afib) - Additional information Additional information: Patient is feeling short of breath today. States that this is similar to when she goes into atrial fibrillation in the past. Contacted her corporate responsibility officer who recommend that she come here to be converted out of atrial fibrillation. [place] Review of Systems Constitutional: denies: Fever, Chills Nose: denies: Rhinorrhea / runny nose, Congestion Throat: denies: Sore throat Cardiac: denies: Chest pain / pressure Respiratory: denies: Cough, Hemoptysis, Wheezing Skin: denies: Rash Musculoskeletal: denies: Neck pain, Back pain Neurologic: denies: Headache PD PAST MEDICAL HISTORY - Past Medical History Cardiovascular: Congestive heart failure, Hypertension, Coronary artery disease Respiratory: Asthma Neuro: Headaches Endocrine/Autoimmune: None, Other GI: GI bleed, Ulcers : None HEENT: None Psych: Anxiety, Eating disorder Musculoskeletal: Osteoarthritis, Rheumatoid arthritis Derm: None - Past Surgical History Past Surgical History: Yes General: Bowel surgery 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 Cardiovascular: Coronary stent HEENT: Cataracts - Present Medications Home Medications: Ambulatory Orders Medication Instructions Recorded Confirmed Simvastatin 20 mg PO QPM 06/05/14 05/10/18 Levothyroxine Sodium 75 mcg PO QDAC 10/16/17 05/10/18 Hydroxychloroquine Sulfate 200 mg PO DAILY 02/17/18 05/10/18 Omeprazole 40 mg PO QDAC 02/17/18 05/10/18 Warfarin Sodium 1.5 mg PO DAILY 02/17/18 05/10/18 Biotin 1,000 mcg PO DAILY 02/18/18 05/10/18 Cyanocobalamin (Vitamin B-12) 3,000 mcg PO DAILY 02/18/18 05/10/18 [Vitamin B-12] Cholecalciferol [Vitamin D3] 5,000 unit PO DAILY capsule 02/19/18 05/10/18 Nitroglycerin 0.4 mg/Hr Patch 1 each TD DAILY #30 patch 02/19/18 05/10/18 [Nitro-Dur] Carvedilol 6.25 mg PO DAILY 04/23/18 05/10/18 Furosemide 20 mg PO DAILY 04/23/18 05/10/18 Isosorbide Mononitrate ER [Imdur] 30 mg PO DAILY 04/23/18 05/10/18 Meclizine HCl [Motion Sickness 25 mg PO TID PRN #15 tablet 04/23/18 05/10/18 Relief] Nitrofurantoin Monohyd/M-Cryst 100 mg PO BID #10 capsule 04/23/18 05/10/18 [Macrobid 100 mg Capsule] - Allergies Allergies/Adverse Reactions: Allergies Allergy/AdvReac Type Severity Reaction Status Date / Time Penicillins Allergy Anaphylaxis Verified 05/10/18 11:51 shellfish derived Allergy Hives Verified 05/10/18 11:51 tree nut Allergy Respiratory Verified 05/10/18 11:51 codeine AdvReac Hallucinati Verified 05/10/18 11:51 ons bleach AdvReac Respiratory Uncoded 01/28/17 13:59 - Social History Does the pt smoke?: No Smoking Status: Never smoker Does the pt drink ETOH?: No Does the pt have substance abuse?: No - Immunizations Immunizations are current?: No Immunizations: TDAP current <10years - POLST Patient has POLST: Yes PD ED PE NORMAL - Vitals Vital signs reviewed: Yes - General General: Alert and oriented X 3, No acute distress, Well developed/nourished - HEENT HEENT: PERRL, Moist mucous membranes - Neck Neck: Supple, no meningeal sign - Cardiac Cardiac: Other (irregular) - Respiratory Respiratory: No respiratory distress, Clear bilaterally - Abdomen Abdomen: Soft, Non tender, Non distended - Derm Derm: Warm and dry - Extremities Extremities: No calf tenderness / cord, Other (trace edema B) - Neuro Neuro: Alert and oriented X 3 - Psych Psych: Normal mood, Normal affect Results - Vitals Vitals: Vital Signs - 24 hr 07/19/18 07/19/18 07/19/18 13:40 15:56 16:49 Temperature 36.9 C Heart Rate 97 79 75 Respiratory 18 19 19 Rate Blood Pressure 166/94 H 107/89 H 112/75 O2 Saturation 99 98 97 07/19/18 07/19/18 07/19/18 17:35 17:40 17:44 Temperature Heart Rate 84 59 L 60 Respiratory 18 24 23 Rate Blood Pressure 115/89 H 91/71 91/71 O2 Saturation 100 94 98 07/19/18 07/19/18 07/19/18 17:49 18:08 18:09 Temperature Heart Rate 63 88 52 L Respiratory 25 H 12 20 Rate Blood Pressure 100/65 95/74 O2 Saturation 99 99 Oxygen O2 Source [] Room air O2 Source Room air - EKG (time done) 1344 Rate: Rate (enter#) (94) Rhythm: Atrial fibrillation [place]: Normal QRS: Normal, LVH Ischemia: Normal ST segments 1743 Rate: Rate (enter#) (57) Rhythm: NSR [place]: Normal Intervals: Normal [place] QRS: Normal, LVH Ischemia: Other (flat t waves) - Labs Labs: Laboratory Tests 07/19/18 07/19/18 07/19/18 14:16 14:16 14:16 WBC 8.0 RBC 4.01 L Hgb 10.6 L Hct 32.6 L MCV 81.2 MCH 26.5 L MCHC 32.6 RDW 14.3 Plt Count 261 MPV 7.5 L Neut # (Auto) 6.5 Lymph # (Auto) 0.4 L [place] # (Auto) 0.8 Eos # (Auto) 0.3 Baso # (Auto) 0.1 Absolute Nucleated RBC 0.00 Nucleated RBC % 0.0 PT INR Sodium 138 Potassium 3.1 L Chloride 101 Carbon Dioxide 25 Anion Gap 12.0 BUN 35 H Creatinine 1.5 H Estimated GFR (MDRD) 33 L Glucose 94 Calcium 9.0 Total Bilirubin 0.8 AST 23 ALT 16 Alkaline Phosphatase 81 Troponin I < 0.04 B-Natriuretic Peptide Total Protein 6.9 Albumin 3.7 Globulin 3.2 Albumin/Globulin Ratio 1.2 Lipase 52 H 07/19/18 07/19/18 14:16 14:20 WBC RBC Hgb Hct MCV MCH MCHC RDW Plt Count MPV Neut # (Auto) Lymph # (Auto) [place] # (Auto) Eos # (Auto) Baso # (Auto) Absolute Nucleated RBC Nucleated RBC % PT 20.4 H INR 1.8 H Sodium Potassium Chloride Carbon Dioxide Anion Gap BUN Creatinine Estimated GFR (MDRD) Glucose Calcium Total Bilirubin AST ALT Alkaline Phosphatase Troponin I B-Natriuretic Peptide 559 H Total Protein Albumin Globulin Albumin/Globulin Ratio Lipase - Rads (name of study) cxr Radiology: Prelim report reviewed, EMP read contemporaneously, See rad report (Mild congestive heart failure. ) Procedures - Cardioversion 1 Time of attempt: 17:37 Indication: Other (Atrial fibrillation) Risks, benefits, alternatives explained to: Pt Prep: IV, O2, court recording monitor, Pulse ox Meds: Propofol (50mg) CS via: Anterolateral Sync: Biphasic, 100j Post cardioversion rhythm: NSR Complications: Other (none) Performed by: ED MD MEDICAL DECISION MAKING - ED course Complexity details: reviewed results, re-evaluated patient, considered differential, d/w patient, d/w family ED course: 77-year-old female with atrial fibrillation today. She states that her corporate responsibility officer wanted her converted. She is anticoagulated. She failed conversion with procainamide and we went to electrical cardioversion. She is now in a normal sinus rhythm. She feels better. Patient and family counseled regarding signs and symptoms for which I believe and urgent re-evaluation would be necessary. Patient with good understanding of and agreement to plan and is co mfortable going home at this time This document was made in part using voice recognition software. While efforts are made to proofread this document, sound alike and grammatical errors may occur. Departure - Departure Disposition: 01 Home, Self Care Clinical Impression: Atrial fibrillation Qualifiers: Atrial fibrillation type: paroxysmal Qualified Code(s): I48.0 - Paroxysmal atrial fibrillation Condition: Good Instructions: ED Afib Follow-Up: Jane Camacho MD [Primary Care Provider] - Within 1 week Comments: Return if you worsen. You were converted out of atrial fibrillation and back in the sinus rhythm. Discharge Date/Time: 07/19/18 18:32
[2018-07-19] MEDS ORDERED: SODIUM CHLORIDE 0.9% 1,000 ML IV ONE (17:26)
[2018-07-19] MEDS ORDERED: PROPOFOL 200 MG/20 ML VIAL IVP STA (17:27)
[2018-07-19 18:10] VITALS: BP 95/74
== END 2018-07-19 18:32 | disposition home or self-care (01) ==
LOC: ED 13:37
DX: I48.0 Paroxysmal atrial fibrillation (principal); I25.10 Atherosclerotic heart disease of native coronary artery without angina pectoris; I11.0 Hypertensive heart disease with heart failure; I50.9 Heart failure, unspecified; Z96.659 Presence of unspecified artificial knee joint; Z95.5 Presence of coronary angioplasty implant and graft; Z79.01 Long term (current) use of anticoagulants
CPT/HCPCS: 36415; 71045; 80053; 83690; 83880; 84484; 85025; 85610; 92960; 93005; 94770; 99284; A9270; J2690

== ENCOUNTER 2018-07-25 08:00 | Outpatient (CLI) | payer MEDICARE, OTHER | END 2018-07-25 23:59 | disposition home or self-care (01) | LOC: LAB.N 08:00 | PROVIDERS: ATTEND Family Medicine | DX: I48.91 Unspecified atrial fibrillation (principal) | CPT/HCPCS: 85610 ==

== ENCOUNTER 2018-07-27 08:00 | Outpatient (CLI) | payer MEDICARE, OTHER | END 2018-07-27 23:59 | disposition home or self-care (01) | LOC: LAB.N 08:00 | PROVIDERS: ATTEND Family Medicine | DX: I48.91 Unspecified atrial fibrillation (principal) | CPT/HCPCS: 85610 ==

== ENCOUNTER 2018-07-31 08:00 | Outpatient (CLI) | payer MEDICARE, OTHER | END 2018-07-31 23:59 | disposition home or self-care (01) | LOC: LAB.N 08:00 | PROVIDERS: ATTEND Family Medicine | DX: I48.91 Unspecified atrial fibrillation (principal) | CPT/HCPCS: 85610 ==

== ENCOUNTER 2018-08-10 08:00 | Outpatient (CLI) | payer MEDICARE, OTHER ==
[2018-08-10 13:24] LABS: CALCIUM 9.2 mg/dL (8.5-10.3); CREATININE 1.9 mg/dL (0.4-1.0)
== END 2018-08-10 23:59 | disposition home or self-care (01) ==
LOC: LAB.N 08:00
PROVIDERS: ATTEND Family Medicine
DX: I48.91 Unspecified atrial fibrillation (principal); N18.3 Chronic kidney disease, stage 3 (moderate)
CPT/HCPCS: 36415; 80048; 85610

== ENCOUNTER 2018-08-23 08:00 | Outpatient (CLI) | payer MEDICARE, OTHER | END 2018-08-23 23:59 | disposition home or self-care (01) | LOC: LAB.N 08:00 | PROVIDERS: ATTEND Family Medicine | DX: I48.91 Unspecified atrial fibrillation (principal) | CPT/HCPCS: 85610 ==

== ENCOUNTER 2018-09-13 08:00 | Outpatient (CLI) | payer MEDICARE, OTHER | END 2018-09-13 23:59 | disposition home or self-care (01) | LOC: LAB.N 08:00 | PROVIDERS: ATTEND Family Medicine | DX: I48.91 Unspecified atrial fibrillation (principal) | CPT/HCPCS: 85610 ==

== ENCOUNTER 2018-09-19 08:00 | Outpatient (CLI) | payer MEDICARE, OTHER | END 2018-09-19 23:59 | disposition home or self-care (01) | LOC: LAB.N 08:00 | PROVIDERS: ATTEND Family Medicine | DX: E87.6 Hypokalemia (principal); I48.91 Unspecified atrial fibrillation | CPT/HCPCS: 36415; 84132; 85610 ==

== ENCOUNTER 2018-09-28 09:53 | Outpatient (CLI) | payer MEDICARE, OTHER | END 2018-09-28 23:59 | disposition home or self-care (01) | LOC: LAB.N 09:53 | PROVIDERS: ATTEND Family Medicine | DX: I48.91 Unspecified atrial fibrillation (principal) | CPT/HCPCS: 85610 ==

== ENCOUNTER 2018-10-12 08:00 | Outpatient (CLI) | payer MEDICARE, OTHER | END 2018-10-12 23:59 | disposition home or self-care (01) | LOC: LAB.N 08:00 | PROVIDERS: ATTEND Family Medicine | DX: Z53.9 Procedure and treatment not carried out, unspecified reason (principal) | CPT/HCPCS: 85610 ==

== ENCOUNTER 2018-10-25 | Outpatient (CLI) | payer MEDICARE, OTHER | END 2018-10-25 23:59 | disposition home or self-care (01) | DX: I48.91 Unspecified atrial fibrillation (principal); N18.3 Chronic kidney disease, stage 3 (moderate) | CPT/HCPCS: 36415; 80069; 81599; 82570; 83735; 84156; 84300; 85025; 85610 ==

== ENCOUNTER 2018-10-29 10:00 | Outpatient (CLI) | payer MEDICARE, OTHER ==
[2018-10-29 19:51] LABS: TOTAL PROTEIN,URINE RANDOM < 6 mg/dL
== END 2018-10-29 23:59 | disposition home or self-care (01) ==
LOC: LAB.R 10:00
PROVIDERS: ATTEND Internal Medicine Nephrology
DX: N18.3 Chronic kidney disease, stage 3 (moderate) (principal)
CPT/HCPCS: 81599; 84156; 84300; 84540

== ENCOUNTER 2018-11-13 08:00 | Outpatient (CLI) | payer MEDICARE, OTHER | END 2018-11-13 23:59 | disposition home or self-care (01) | LOC: LAB.N 08:00 | PROVIDERS: ATTEND Family Medicine | DX: I48.91 Unspecified atrial fibrillation (principal) | CPT/HCPCS: 85610 ==

== ENCOUNTER 2018-12-07 08:00 | Outpatient (CLI) | payer MEDICARE, OTHER | END 2018-12-07 23:59 | disposition home or self-care (01) | LOC: LAB.N 08:00 | PROVIDERS: ATTEND Family Medicine | DX: I48.91 Unspecified atrial fibrillation (principal) | CPT/HCPCS: 85610 ==

== ENCOUNTER 2019-01-03 08:00 | Outpatient (CLI) | payer MEDICARE, OTHER ==
[2019-01-03 19:23] LABS: ALBUMIN 3.9 g/dL (3.2-5.5); ALBUMIN/GLOBULIN RATIO 1.4 (1.0-2.2); ALKALINE PHOSPHATASE 79 IU/L (42-121); ALT ALANINE AMINOTRANSFERASE 14 IU/L (10-60); AST ASPARTATE AMINOTRANSFERASE 19 IU/L (10-42); BUN - BLOOD UREA NITROGEN 27 mg/dL (6-20); CARBON DIOXIDE - CO2 27 mmol/L (21-32); CHLORIDE 99 mmol/L (101-111); CHOL/HDL RATIO 1.9 (<4.4); CHOLESTEROL 154 mg/dL; CREATININE 1.6 mg/dL (0.4-1.0); GFR - MDRD 31 (>89); GLUCOSE 86 mg/dL (70-100); HDL CHOLESTEROL 80 mg/dL; LDL CHOLESTEROL,CALCULATED 60 mg/dL; LDL/HDL RATIO 0.8 (<4.4); MAGNESIUM 2.3 mg/dL (1.7-2.8); SODIUM 138 mmol/L (135-145); TOTAL PROTEIN 6.7 g/dL (6.7-8.2); VLDL CHOLESTEROL 14 mg/dL
[2019-01-03 19:33] LABS: THYROID STIMULATING HORMONE 2.19 uIU/mL (0.34-5.60)
[2019-01-03 19:35] LABS: FREE T4 (FREE THYROXINE) 1.68 ng/dL (0.58-1.64)
== END 2019-01-03 23:59 | disposition home or self-care (01) ==
LOC: LAB.N 08:00
PROVIDERS: ATTEND Family Medicine
DX: I48.91 Unspecified atrial fibrillation (principal); I10 Essential (primary) hypertension; E03.9 Hypothyroidism, unspecified; E78.5 Hyperlipidemia, unspecified
CPT/HCPCS: 36415; 80053; 80061; 83721; 83735; 84439; 84443; 85610

== ENCOUNTER 2019-01-26 17:48 | Outpatient (CLI) | payer MEDICARE, OTHER | END 2019-01-26 17:49 | disposition critical access hospital (66) | LOC: EMS 17:48 | PROVIDERS: ATTEND Surgery | DX: R55 Syncope and collapse (principal); R42 Dizziness and giddiness ==

== ENCOUNTER 2019-01-26 18:07 | Emergency (ER) | payer MEDICARE, OTHER ==
[2019-01-26 18:23] LABS: BASOPHILS # (AUTO) 0.1 10^3/uL (0.0-0.1); BASOPHILS % (AUTO) 1.2 %; EOSINOPHILS # (AUTO) 0.3 10^3/uL (0.0-0.7); HGB - HEMOGLOBIN 12.6 g/dL (12.0-16.0); LYMPHOCYTES # (AUTO) 0.5 10^3/uL (1.5-3.5); LYMPHOCYTES % (AUTO) 7.1 %; MEAN CORPUSCULAR HEMOGLOBIN 26.5 pg (27.0-31.0); MEAN CORPUSCULAR VOLUME 82.8 fL (81.0-99.0); MEAN PLATELET VOLUME 9.5 fL (7.9-10.8); MONOCYTES # (AUTO) 0.8 10^3/uL (0.0-1.0); MONOCYTES % (AUTO) 12.4 %; NEUTROPHILS # (AUTO) 5.1 10^3/uL (1.5-6.6); NEUTROPHILS % (AUTO) 74.9 %; PLT - PLATELET COUNT 239 10^3/uL (130-450); RED BLOOD COUNT 4.76 10^6/uL (4.20-5.40); RED CELL DISTRIBUTION WIDTH 16.4 % (12.0-15.0); WHITE BLOOD COUNT 6.8 x10^3/uL (4.8-10.8)
--- NOTE | 2019-01-26 18:24 | ED Physician Documentation ---
PD HPI ALTERED MENTAL STATUS - Stated complaint Stated Complaint: SYNCOPE - Chief complaint Chief Complaint: Neuro - History obtained from History obtained from: Patient (78-year-old woman with history of a paroxysmal atrial fibrillation was in her usual state of health until about 4:15 PM. She was getting ready to go out to town and started to feel very dizzy which she describes as a spinning sensation but different than prior episodes of vertigo. Subsequent to that she had a syncopal episode without injury and every time she tried to sit up she would pass out or nearly passed out again. In route she was found to be in atrial fibrillation, she says the last time she was in atrial fibrillation was july be 5 months ago. She denies chest pain or trouble breathing. There is no injury. No headache. No changes in bowel movements.) Review of Systems Constitutional: reports: Fatigue. 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 Cardiovascular: Coronary stent HEENT: Cataracts - Present Medications Home Medications: Ambulatory Orders Medication Instructions Recorded Confirmed Simvastatin 20 mg PO QPM 06/05/14 05/10/18 Levothyroxine Sodium 75 mcg PO QDAC 10/16/17 05/10/18 Hydroxychloroquine Sulfate 200 mg PO DAILY 02/17/18 05/10/18 Omeprazole 40 mg PO QDAC 02/17/18 05/10/18 Warfarin Sodium 1.5 mg PO DAILY 02/17/18 05/10/18 Biotin 1,000 mcg PO DAILY 02/18/18 05/10/18 Cyanocobalamin (Vitamin B-12) 3,000 mcg PO DAILY 02/18/18 05/10/18 [Vitamin B-12] Cholecalciferol [Vitamin D3] 5,000 unit PO DAILY capsule 02/19/18 05/10/18 Nitroglycerin 0.4 mg/Hr Patch 1 each TD DAILY #30 patch 02/19/18 05/10/18 [Nitro-Dur] Carvedilol 6.25 mg PO DAILY 04/23/18 05/10/18 Furosemide 20 mg PO DAILY 04/23/18 05/10/18 Isosorbide Mononitrate ER [Imdur] 30 mg PO DAILY 04/23/18 05/10/18 Meclizine HCl [Motion Sickness 25 mg PO TID PRN #15 tablet 04/23/18 05/10/18 Relief] Nitrofurantoin Monohyd/M-Cryst 100 mg PO BID #10 capsule 04/23/18 05/10/18 [Macrobid 100 mg Capsule] - Allergies Allergies/Adverse Reactions: Allergies Allergy/AdvReac Type Severity Reaction Status Date / Time Penicillins Allergy Anaphylaxis Verified 05/10/18 11:51 shellfish derived Allergy Hives Verified 05/10/18 11:51 tree nut Allergy Respiratory Verified 05/10/18 11:51 codeine AdvReac Hallucinati Verified 05/10/18 11:51 ons bleach AdvReac Respiratory Uncoded 01/28/17 13:59 - Social History Does the pt smoke?: No Smoking Status: Never smoker Does the pt drink ETOH?: No Does the pt have substance abuse?: No - Immunizations Immunizations are current?: No Immunizations: TDAP current <10years - POLST Patient has POLST: Yes PD ED PE NORMAL - Vitals Vital signs reviewed: Yes - General General: Alert and oriented X 3, No acute distress - HEENT HEENT: PERRL, EOMI - Neck Neck: Supple, no meningeal sign, No bony TTP - Cardiac Cardiac: Other (Irregularly irregular without murmur) - Respiratory Respiratory: No respiratory distress, Clear bilaterally - Abdomen Abdomen: Soft, Non tender - Back Back: No CVA TTP, No spinal TTP - Derm Derm: Normal color, Warm and dry - Extremities Extremities: No edema, No calf tenderness / cord - Neuro Neuro: Alert and oriented X 3, No motor deficit, No sensory deficit, Normal speech, Other (Symmetric smile and strength throughout the body.) - Psych Psych: Normal mood, Normal affect Results - Vitals Vitals: Vital Signs - 24 hr 01/26/19 01/26/19 01/26/19 18:08 18:55 19:31 Temperature 36.6 C Heart Rate 59 L 89 87 Respiratory 18 18 18 Rate Blood Pressure 154/90 H 82/55 L 120/76 O2 Saturation 97 100 99 01/26/19 01/26/19 01/26/19 19:41 20:30 21:15 Temperature Heart Rate 87 96 69 Respiratory 14 20 18 Rate Blood Pressure 112/70 115/73 O2 Saturation 97 100 01/26/19 01/26/19 01/26/19 21:19 21:25 22:22 Temperature Heart Rate 54 L 61 72 Respiratory 18 17 17 Rate Blood Pressure 108/60 92/54 L 112/58 L O2 Saturation 90 L 90 L 96 Oxygen O2 Source [] Room air O2 Source Nasal cannula - EKG (time done) 1812 Rate: Rate (enter#) (73) Rhythm: Atrial fibrillation [place]: Normal QRS: LVH Ischemia: Normal ST segments Computer interpretation: Agree with computer 2120 Rate: Rate (enter#) (51) Rhythm: NSR (With PACs) [place]: Normal Intervals: Normal [place], Prolonged QT QRS: LVH Ischemia: Non specific changes (Flat T waves throughout) Computer interpretation: Agree with computer - Labs Labs: Laboratory Tests 01/26/19 01/26/19 01/26/19 18:20 18:20 18:20 WBC 6.8 RBC 4.76 Hgb 12.6 Hct 39.4 MCV 82.8 MCH 26.5 L MCHC 32.0 RDW 16.4 H Plt Count 239 MPV 9.5 Neut # (Auto) 5.1 Lymph # (Auto) 0.5 L Bartholomew # (Auto) 0.8 Eos # (Auto) 0.3 Baso # (Auto) 0.1 Absolute Nucleated RBC 0.00 Nucleated RBC % 0.0 PT INR Sodium 142 Potassium 3.0 L Chloride 101 Carbon Dioxide 27 Anion Gap 14.0 H BUN 31 H Creatinine 1.5 H Estimated GFR (MDRD) 33 L Glucose 93 Calcium 9.4 Total Bilirubin 1.1 H AST 21 ALT 15 Alkaline Phosphatase 86 Troponin I High Sens 24.6 H* B-Natriuretic Peptide Total Protein 7.4 Albumin 4.2 Globulin 3.2 Albumin/Globulin Ratio 1.3 Lipase 46 01/26/19 01/26/19 01/26/19 18:20 18:30 20:25 WBC RBC Hgb Hct MCV MCH MCHC RDW Plt Count MPV Neut # (Auto) Lymph # (Auto) Bartholomew # (Auto) Eos # (Auto) Baso # (Auto) Absolute Nucleated RBC Nucleated RBC % PT 18.0 H INR 1.6 H Sodium Potassium Chloride Carbon Dioxide Anion Gap BUN Creatinine Estimated GFR (MDRD) Glucose Calcium Total Bilirubin AST ALT Alkaline Phosphatase Troponin I High Sens 22.2 H* B-Natriuretic Peptide 455 H Total Protein Albumin Globulin Albumin/Globulin Ratio Lipase Procedures - Procedural sedation Sedation prep: Informed consent, Time out completed, Last meal (4pm), PE performed, AHA 2 - mild disease Sedation medications: propofol (50mg IVP) Patient status during sedation: Responds to tactile, Vitals remained stable, Maintained airway, Recovered uneventfully Sedation recovery: Recovered uneventfully Time in sedation (Minutes): 12 - Cardioversion 1 Time of attempt: 21:20 Indication: Other (symptomatc afib) Risks, benefits, alternatives explained to: Pt Prep: IV, O2, wallpaper scraper, Pulse ox, Airway equip Meds: Propofol (50mg IVP) CS via: Pads, AP approach Sync: 100j Post cardioversion rhythm: NSR Performed by: ED MD PD MEDICAL DECISION MAKING - ED course ED course: 78-year-old woman presents with dizziness and syncope. Probably related to symptomatic atrial fibrillation. No other pertinent positive findings were found except for hypokalemia. She did not tolerate IV potassium with it was repleted orally after cardioversion. Initially given procainamide without conversion. Subsequently electrically cardioverted to sinus rhythm. After that feeling good and back to normal after a snack and staying in NSR. Departure - Departure Disposition: 01 Home, Self Care Clinical Impression: Atrial fibrillation Qualifiers: Atrial fibrillation type: paroxysmal Qualified Code(s): I48.0 - Paroxysmal atrial fibrillation Condition: Good Record reviewed to determine appropriate education?: Yes Instructions: Atrial Fibrillation Dc Comments: Your INR today is low at 1.6. Take an extra dose of warfarin tonight. Please recheck it on Monday or so. Follow-up with your doctor and your coremaking machine setter, both next available appointments. Discharge Date/Time: 01/27/19 00:00
[2019-01-26] MEDS ORDERED: PROCAINAMIDE 1,000 MG in SODIUM CHLORIDE 0.9% 240 ML IV STA (18:26)
[2019-01-26 18:36] LABS: ALBUMIN 4.2 g/dL (3.2-5.5); ALBUMIN/GLOBULIN RATIO 1.3 (1.0-2.2); BILIRUBIN,TOTAL 1.1 mg/dL (0.2-1.0); CALCIUM 9.4 mg/dL (8.5-10.3); CREATININE 1.5 mg/dL (0.4-1.0); TOTAL PROTEIN 7.4 g/dL (6.7-8.2)
[2019-01-26 18:42] LABS: INR 1.6 (0.8-1.2)
[2019-01-26] MEDS ORDERED: SODIUM CHLORIDE 0.9% 500 ML IV ONE (18:50)
[2019-01-26] MEDS ORDERED: POTASSIUM CHLOR 10 MEQ/100 ML 10 MEQ/100 ML BAG IV ONE (19:28)
--- NOTE | 2019-01-26 19:49 | CT Report ---
Reason: dizzy, syncope Procedure Date: 01/26/2019 Accession Number: [id number] / [id number] Procedure: CT - HEAD WO CPT Code: Final Report FULL RESULT: EXAM: CT HEAD EXAM DATE: 01/26/2019 07:13 PM. CLINICAL HISTORY: Dizzy, syncope. COMPARISON: CERVICAL SPINE W/O 05/10/2018 12:37 PM. TECHNIQUE: Multiaxial CT images were obtained from the foramen magnum to the vertex. Reformats: Sagittal and coronal. IV contrast: None. In accordance with CT protocol optimization, one or more of the following dose reduction techniques were utilized for this exam: automated exposure control, adjustment of mA and/or KV based on patient size, or use of iterative reconstructive technique. FINDINGS: Parenchyma: No intraparenchymal hemorrhage. No evidence of mass, midline shift, or CT findings of infarction. [place]-white differentiation is distinct. Periventricular white matter hypodensity likely represents small vessel ischemic disease. Extraaxial Spaces: Normal for age. No subdural or epidural collections identified. Ventricles: Normal in size and position. Sinuses and Orbits: Imaged paranasal sinuses, orbits, and mastoids show no significant abnormality. Patient has undergone bilateral lens surgeries. Bones: No evidence of fracture or calvarial defect. Other: None. IMPRESSION: No acute intracranial CT abnormality. RADIA
[2019-01-26] MEDS ORDERED: PROPOFOL 200 MG/20 ML VIAL IVP STA (21:04)
[2019-01-26] MEDS ORDERED: POTASSIUM CHLORIDE 20 MEQ TABLET PO STA (21:25)
[2019-01-26 22:22] VITALS: BP 112/58
[2019-01-26] MEDS ORDERED: ONDANSETRON 4 MG/2 ML VIAL IVP STA (23:05)
== END 2019-01-27 | disposition home or self-care (01) ==
LOC: EDUNIT# → ED 18:07
DX: I48.0 Paroxysmal atrial fibrillation (principal); I10 Essential (primary) hypertension; I25.10 Atherosclerotic heart disease of native coronary artery without angina pectoris; Z96.659 Presence of unspecified artificial knee joint; Z95.5 Presence of coronary angioplasty implant and graft; Z79.01 Long term (current) use of anticoagulants
CPT/HCPCS: 36415; 70450; 80053; 83690; 83880; 84484; 85025; 85610; 92960; 96361; 96365; 96366; 96368; 96375; 99152; 99284; 99285; A9270; J2690; 93005; 94770

== ENCOUNTER 2019-01-29 10:10 | Outpatient (CLI) | payer MEDICARE, OTHER | END 2019-01-29 23:59 | disposition home or self-care (01) | LOC: LAB.N 10:10 | PROVIDERS: ATTEND Family Medicine | DX: I48.91 Unspecified atrial fibrillation (principal) | CPT/HCPCS: 85610 ==

== ENCOUNTER 2019-02-12 10:26 | Emergency (ER) | payer MEDICARE, OTHER ==
--- NOTE | 2019-02-12 11:06 | ED Physician Documentation ---
PD HPI TRUNK INJURY - Stated complaint Stated Complaint: GLF/CHEST PX - Chief complaint Chief Complaint: Cardiac - History obtained from History obtained from: Patient - History of Present Illness Location: Right chest Type of injury: Fall (she says her shoe bottom felt like it "stuck" on the floor as she was walking down the approach area of [employer] [place], while bowling last F riday. She lurched forward and fell to floor on right side. Pain in right chest that has persisted. Worse with movement and moderate breathing. Did not strike head nor have any head/neck pain. Used some TYlenol few times but not consistent.) Timing - onset: How many days ago (4) Timing - duration: Days (4) Timing - details: Abrupt onset, Still present, Waxing and waning Quality: Pain, Sharp Improved by: Rest Worsened by: Moving, Palpating, Other (moderate breathing.) Associated symtptoms: No: Weakness, Numbness Contributing factors: Anticoagulated. No: Other injury Where injury occured: Other (bowling [place]) Similar symptoms before: Diagnosis (had rib fracture with PTX in past few years from a fall.) Recently seen: Clinic (seen for usual INR about a week ago and had low level 1.8, so had increase of her Coumadin from "normal dose" to "double dose" the past week.) Review of Systems Constitutional: denies: Fever, Chills, Myalgias Nose: denies: Rhinorrhea / runny nose, Congestion Throat: denies: Sore throat Cardiac: reports: Chest pain / pressure. denies: Palpitations, Pedal edema, Calf pain Respiratory: reports: Dyspnea. denies: Cough, Wheezing GI: denies: Abdominal Pain, Nausea, Vomiting, Diarrhea Neurologic: denies: Generalized weakness, Focal weakness, Numbness, Altered mental status, Headache, Head injury, LOC PD PAST MEDICAL HISTORY - Past Medical History Cardiovascular: Congestive heart failure, Hypertension, Coronary artery disease Respiratory: Asthma Neuro: Headaches Endocrine/Autoimmune: None, Other GI: GI bleed, Ulcers : None HEENT: None Psych: Anxiety, Eating disorder Musculoskeletal: Osteoarthritis, Rheumatoid arthritis Derm: None - Past Surgical History Past Surgical History: Yes General: Bowel surgery Ortho: 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 Cardiovascular: Coronary stent HEENT: Cataracts - Present Medications Home Medications: Ambulatory Orders Medication Instructions Recorded Confirmed Simvastatin 20 mg PO QPM 03/12/15 02/14/19 Levothyroxine Sodium 75 mcg PO QDAC 10/16/17 05/10/18 Hydroxychloroquine Sulfate 200 mg PO DAILY 02/17/18 05/10/18 Omeprazole 40 mg PO QDAC 02/17/18 05/10/18 Warfarin Sodium 1.5 mg PO DAILY 02/17/18 05/10/18 Biotin 1,000 mcg PO DAILY 02/18/18 05/10/18 Cyanocobalamin (Vitamin B-12) 3,000 mcg PO DAILY 02/18/18 05/10/18 [Vitamin B-12] Cholecalciferol [Vitamin D3] 5,000 unit PO DAILY capsule 02/19/18 05/10/18 Nitroglycerin 0.4 mg/Hr Patch 1 each TD DAILY #30 patch 02/19/18 05/10/18 [Nitro-Dur] Furosemide 20 mg PO DAILY 04/23/18 05/10/18 Isosorbide Mononitrate ER [Imdur] 30 mg PO DAILY 04/23/18 05/10/18 Meclizine HCl [Motion Sickness 25 mg PO TID PRN #15 tablet 04/23/18 05/10/18 Relief] Nitrofurantoin Monohyd/M-Cryst 100 mg PO BID #10 capsule 04/23/18 05/10/18 [Macrobid 100 mg Capsule] carvediloL [Carvedilol] 6.25 mg PO DAILY 04/23/18 05/10/18 Hydrocodone/Acetaminophen 1 each PO Q6H PRN #18 tablet 02/12/19 [Hydrocodon-Acetaminophen 5-325] - Allergies Allergies/Adverse Reactions: Allergies Allergy/AdvReac Type Severity Reaction Status Date / Time Penicillins Allergy Anaphylaxis Verified 05/10/18 11:51 shellfish derived Allergy Hives Verified 05/10/18 11:51 tree nut Allergy Respiratory Verified 05/10/18 11:51 codeine AdvReac Hallucinati Verified 05/10/18 11:51 ons bleach AdvReac Respiratory Uncoded 01/28/17 13:59 - Social History Does the pt smoke?: No Smoking Status: Never smoker Does the pt drink ETOH?: No Does the pt have substance abuse?: No - Immunizations Immunizations are current?: No Immunizations: TDAP current <10years - POLST Patient has POLST: Yes PD ED PE NORMAL - Vitals Vital signs reviewed: Yes - General General: Alert and oriented X 3, Well developed/nourished (though is thin, but appears well groomed.), Other (appears in pain with deep breathing and movement. ) - HEENT HEENT: Atraumatic, Moist mucous membranes, Pharynx benign - Neck Neck: Supple, no meningeal sign, No bony TTP, No adenopathy - Cardiac Cardiac: RRR, No murmur - Respiratory Respiratory: Clear bilaterally, Other (right lateral chest wall tenderness about 5th or 6th rib area without crepitance nor bruising. ) - Abdomen Abdomen: Soft, Non tender - Back Back: No CVA TTP, No spinal TTP - Derm Derm: Normal color, Warm and dry - Extremities Extremities: No tenderness to palpate, Normal ROM s pain - Neuro Neuro: Alert and oriented X 3, No motor deficit, Normal speech Eye Opening: Spontaneous Motor: Obeys Commands Verbal: Oriented GCS Score: 15 Results - Vitals Vitals: Vital Signs - 24 hr 02/12/19 02/12/19 02/12/19 10:31 12:00 14:00 Temperature 36.6 C Heart Rate 61 71 77 Respiratory 20 21 18 Rate Blood Pressure 127/101 H 144/106 H 149/81 H O2 Saturation 100 97 97 02/12/19 15:13 Temperature Heart Rate 70 Respiratory 20 Rate Blood Pressure 142/71 H O2 Saturation 97 Oxygen O2 Source [With Activity] Room air O2 Source Room air - Labs Labs: Laboratory Tests 02/12/19 02/12/19 02/12/19 11:08 11:08 11:08 WBC 7.0 RBC 4.64 Hgb 12.3 Hct 40.0 MCV 86.2 MCH 26.5 L MCHC 30.8 L RDW 15.9 H Plt Count 274 MPV 9.3 Neut # (Auto) 5.5 Lymph # (Auto) 0.4 L [place] # (Auto) 0.7 Eos # (Auto) 0.3 Baso # (Auto) 0.1 Absolute Nucleated RBC 0.00 Nucleated RBC % 0.0 PT 50.9 H INR 4.9 H* Sodium 141 Potassium 4.6 Chloride 104 Carbon Dioxide 27 Anion Gap 10.0 BUN 30 H Creatinine 1.6 H Estimated GFR (MDRD) 31 L Glucose 108 H Calcium 8.9 Magnesium 2.8 Total Bilirubin 0.7 AST 18 ALT 13 Alkaline Phosphatase 99 Total Protein 6.9 Albumin 3.8 Globulin 3.1 Albumin/Globulin Ratio 1.2 Lipase 34 - Rads (name of study) chest CT Radiology: Prelim report reviewed (lungs normal. possible nondisp fx 4th and 5th ribs versus artifact. ), See rad report PD MEDICAL DECISION MAKING - ED course Complexity details: reviewed results (CXR showing possible fracture 4th rib versus artifact. clinically c/w fracture given local pain. ), considered differential, d/w patient Departure - Departure Disposition: Home, Self Care Clinical Impression: Supratherapeutic international normalized ratio (INR) Accidental fall Qualifiers: Encounter type: initial encounter Qualified Code(s): W19.XXXA - Unspecified fall, initial encounter Chest wall contusion Qualifiers: Encounter type: initial encounter Laterality: right Qualified Code(s): S20.211A - Contusion of right front wall of thorax, initial encounter Rib fracture Qualifiers: Encounter type: initial encounter Rib fracture type: single rib Fracture type: closed Laterality: right Qualified Code(s): S22.31XA - Fracture of one rib, right side, initial encounter for closed fracture Condition: Stable Record reviewed to determine appropriate education?: Yes Instructions: ED Contusion Vs Minor Fx Rib Follow-Up: Jane Camacho MD [Primary Care Provider] - Prescriptions: Hydrocodone/Acetaminophen [Hydrocodon-Acetaminophen 5-325] 1 each PO Q6H PRN #18 tablet PRN Reason: pain Comments: There was a possible/likely nondisplaced rib fracture seen on the CT scan. No signs of lung injury. Use Tylenol 500 mg 4 times a day. To this add hydrocodone if needed for pains every 6 hours. Your INR was elevated. I would hold your dose for a day and then resume your Coumadin at "regular dose" (1.5 mg?) alternating with a "double dose" every other day. Follow-up with your primary care for recheck in about a week and to have your INR checked again as well. Call today or tomorrow for an appointment. Activity as tolerated. Discharge Date/Time: 02/12/19 15:14
[2019-02-12] MEDS ORDERED: SODIUM CHLORIDE 0.9% 1,000 ML IV ONE (11:32)
[2019-02-12] MEDS ORDERED: KETOROLAC 15 MG/ML VIAL IVP STA (11:33)
[2019-02-12] MEDS ORDERED: ONDANSETRON 4 MG/2 ML VIAL IVP STA (11:33)
[2019-02-12] MEDS ORDERED: MORPHINE 2 MG/ML CARPUJECT IVP STA (11:33)
[2019-02-12] MEDS ORDERED: IOVERSOL 320 100 ML VIAL IVP ONE (11:36)
[2019-02-12 11:39] LABS: BASOPHILS # (AUTO) 0.1 10^3/uL (0.0-0.1); BASOPHILS % (AUTO) 0.7 %; EOSINOPHILS # (AUTO) 0.3 10^3/uL (0.0-0.7); EOSINOPHILS % (AUTO) 3.6 %; HGB - HEMOGLOBIN 12.3 g/dL (12.0-16.0); LYMPHOCYTES # (AUTO) 0.4 10^3/uL (1.5-3.5); LYMPHOCYTES % (AUTO) 6.3 %; MEAN CORPUSCULAR HEMOGLOBIN 26.5 pg (27.0-31.0); MEAN CORPUSCULAR HGB CONC 30.8 g/dL (32.0-36.0); MEAN CORPUSCULAR VOLUME 86.2 fL (81.0-99.0); MEAN PLATELET VOLUME 9.3 fL (7.9-10.8); MONOCYTES # (AUTO) 0.7 10^3/uL (0.0-1.0); MONOCYTES % (AUTO) 10.6 %; NEUTROPHILS # (AUTO) 5.5 10^3/uL (1.5-6.6); NEUTROPHILS % (AUTO) 78.4 %; PLT - PLATELET COUNT 274 10^3/uL (130-450); RED BLOOD COUNT 4.64 10^6/uL (4.20-5.40); RED CELL DISTRIBUTION WIDTH 15.9 % (12.0-15.0)
[2019-02-12 11:54] LABS: ALBUMIN 3.8 g/dL (3.2-5.5); ALBUMIN/GLOBULIN RATIO 1.2 (1.0-2.2); BILIRUBIN,TOTAL 0.7 mg/dL (0.2-1.0); CALCIUM 8.9 mg/dL (8.5-10.3); CREATININE 1.6 mg/dL (0.4-1.0); MAGNESIUM 2.8 mg/dL (1.7-2.8); TOTAL PROTEIN 6.9 g/dL (6.7-8.2)
[2019-02-12 12:05] LABS: PT - PROTHROMBIN TIME 50.9 secs (9.9-12.6)
[2019-02-12 12:06] LABS: INR 4.9 (0.8-1.2)
--- NOTE | 2019-02-12 13:15 | CT Report ---
Reason: FALL 4 DAYS AGO, RIGHT LATERAL RIB/CHEST PAIN Procedure Date: 02/12/2019 Accession Number: [id number] / [id number] Procedure: CT - CHEST WO CPT Code: Final Report FULL RESULT: EXAM: CT CHEST EXAM DATE: 02/12/2019 12:41 PM. CLINICAL HISTORY: FALL 4 DAYS AGO, RIGHT LATERAL RIB/CHEST PAIN. COMPARISONS: None. TECHNIQUE: Routine helical CT imaging was performed through the chest. IV contrast: None. Reconstructions: Coronal and sagittal. In accordance with CT protocol optimization, one or more of the following dose reduction techniques were utilized for this exam: automated exposure control, adjustment of mA and/or KV based on patient size, or use of iterative reconstructive technique. FINDINGS: Lungs/Pleura: Mild generalized prominence of septal lines. Atelectasis predominantly in the left base. Tiny calcified granuloma on the right. No acute infiltrate, consolidation, effusion, or pneumothorax. Mediastinum: Mild to moderate cardiomegaly. No pericardial effusion. Marked coronary artery calcifications. Prominent right paratracheal lymph node measuring 13.4 mm on coronal image 39. Minimal prominence of other mediastinal lymph nodes. Calcified lymph nodes were normal on the right. Bones: Scoliosis, degenerative changes, old rib fractures. Possible nondisplaced anterior right fourth and fifth rib fractures versus artifacts. Visualized Abdomen: Unremarkable. Other: None. IMPRESSION: 1. Possible anterior right fourth and fifth fractures versus artifact. 2. Cardiomegaly with mildly prominent septal lines, but no effusion or definite edema. 3. Prominent right peritracheal lymph node, a nonspecific finding. 4. Old granulomatous disease and other chronic or incidental findings. RADIA
[2019-02-12] MEDS ORDERED: HYDROmorphone 1 MG/ML CARPUJECT IVP STA (14:16)
[2019-02-12 15:14] VITALS: BP 142/71
== END 2019-02-12 15:14 | disposition home or self-care (01) ==
LOC: ED 10:26
DX: S22.31XA Fracture of one rib, right side, initial encounter for closed fracture (principal); S20.211A Contusion of right front wall of thorax, initial encounter; W18.39XA Other fall on same level, initial encounter; Y93.54 Activity, bowling; Y92.39 Other specified sports and athletic area as the place of occurrence of the external cause; R79.1 Abnormal coagulation profile; I48.91 Unspecified atrial fibrillation; Z79.01 Long term (current) use of anticoagulants; I11.0 Hypertensive heart disease with heart failure; I50.9 Heart failure, unspecified
CPT/HCPCS: 36415; 71250; 80053; 83690; 83735; 85025; 85610; 93005; 96361; 96374; 96375; 99284; 99285; J1170

== ENCOUNTER 2019-02-18 09:50 | Outpatient (CLI) | payer MEDICARE, OTHER ==
[2019-02-18 12:30] LABS: BASOPHILS # (AUTO) 0.1 10^3/uL (0.0-0.1); BASOPHILS % (AUTO) 1.4 %; EOSINOPHILS # (AUTO) 0.3 10^3/uL (0.0-0.7); EOSINOPHILS % (AUTO) 5.5 %; HGB - HEMOGLOBIN 11.8 g/dL (12.0-16.0); LYMPHOCYTES # (AUTO) 0.6 10^3/uL (1.5-3.5); LYMPHOCYTES % (AUTO) 9.6 %; MEAN CORPUSCULAR HGB CONC 30.5 g/dL (32.0-36.0); MEAN CORPUSCULAR VOLUME 85.4 fL (81.0-99.0); MEAN PLATELET VOLUME 9.7 fL (7.9-10.8); MONOCYTES # (AUTO) 0.6 10^3/uL (0.0-1.0); NEUTROPHILS # (AUTO) 4.2 10^3/uL (1.5-6.6); PLT - PLATELET COUNT 302 10^3/uL (130-450); RED BLOOD COUNT 4.53 10^6/uL (4.20-5.40); RED CELL DISTRIBUTION WIDTH 15.9 % (12.0-15.0); WHITE BLOOD COUNT 5.8 x10^3/uL (4.8-10.8)
[2019-02-18 12:47] LABS: ALBUMIN 3.6 g/dL (3.2-5.5); CALCIUM 8.9 mg/dL (8.5-10.3); CREATININE 1.6 mg/dL (0.4-1.0); MAGNESIUM 2.6 mg/dL (1.7-2.8); URIC ACID 7.2 mg/dL (2.6-7.2)
== END 2019-02-18 23:59 | disposition home or self-care (01) ==
LOC: LAB.N 09:50
PROVIDERS: ATTEND Family Medicine
DX: I48.91 Unspecified atrial fibrillation (principal); N18.3 Chronic kidney disease, stage 3 (moderate); E87.6 Hypokalemia
CPT/HCPCS: 36415; 80048; 80069; 82306; 83735; 83970; 84550; 85025; 85610

== ENCOUNTER 2019-03-04 08:00 | Outpatient (CLI) | payer MEDICARE, OTHER | END 2019-03-04 23:59 | disposition home or self-care (01) | LOC: LAB.N 08:00 | PROVIDERS: ATTEND Family Medicine | DX: I48.91 Unspecified atrial fibrillation (principal) | CPT/HCPCS: 85610 ==

== ENCOUNTER 2019-04-04 08:00 | Outpatient (CLI) | payer MEDICARE, OTHER | END 2019-04-04 23:59 | disposition home or self-care (01) | LOC: LAB.N 08:00 | PROVIDERS: ATTEND Family Medicine | DX: I48.91 Unspecified atrial fibrillation (principal) | CPT/HCPCS: 85610 ==

== ENCOUNTER 2019-04-23 08:00 | Outpatient (CLI) | payer MEDICARE, OTHER | END 2019-04-23 23:59 | disposition home or self-care (01) | LOC: LAB.N 08:00 | PROVIDERS: ATTEND Family Medicine | DX: E87.6 Hypokalemia (principal); I48.91 Unspecified atrial fibrillation | CPT/HCPCS: 36415; 80069; 81001; 82043; 82570; 83735; 83970; 84132; 84550; 85025; 85610 ==

== ENCOUNTER 2019-05-10 09:08 | Outpatient (CLI) | payer MEDICARE, OTHER ==
[2019-05-10 12:15] LABS: BASOPHILS # (AUTO) 0.1 10^3/uL (0.0-0.1); BASOPHILS % (AUTO) 0.9 %; EOSINOPHILS # (AUTO) 0.2 10^3/uL (0.0-0.7); EOSINOPHILS % (AUTO) 3.2 %; HGB - HEMOGLOBIN 12.3 g/dL (12.0-16.0); LYMPHOCYTES # (AUTO) 0.4 10^3/uL (1.5-3.5); LYMPHOCYTES % (AUTO) 6.5 %; MEAN CORPUSCULAR HGB CONC 31.8 g/dL (32.0-36.0); MEAN CORPUSCULAR VOLUME 88.2 fL (81.0-99.0); MONOCYTES # (AUTO) 0.6 10^3/uL (0.0-1.0); MONOCYTES % (AUTO) 11.2 %; NEUTROPHILS # (AUTO) 4.4 10^3/uL (1.5-6.6); PLT - PLATELET COUNT 227 10^3/uL (130-450); RED BLOOD COUNT 4.39 10^6/uL (4.20-5.40); RED CELL DISTRIBUTION WIDTH 14.1 % (12.0-15.0); WHITE BLOOD COUNT 5.7 x10^3/uL (4.8-10.8)
[2019-05-10 12:38] LABS: ALBUMIN 3.8 g/dL (3.2-5.5); ALBUMIN/GLOBULIN RATIO 1.4 (1.0-2.2); ALKALINE PHOSPHATASE 77 IU/L (42-121); ALT ALANINE AMINOTRANSFERASE 13 IU/L (10-60); AST ASPARTATE AMINOTRANSFERASE 21 IU/L (10-42); BILIRUBIN,TOTAL 0.7 mg/dL (0.2-1.0); BUN - BLOOD UREA NITROGEN 32 mg/dL (6-20); CARBON DIOXIDE - CO2 28 mmol/L (21-32); CHLORIDE 99 mmol/L (101-111); CHOL/HDL RATIO 2.4 (<4.4); CHOLESTEROL 184 mg/dL; CREATININE 1.9 mg/dL (0.4-1.0); GFR - MDRD 25 (>89); GLUCOSE 92 mg/dL (70-100); HDL CHOLESTEROL 78 mg/dL; LDL CHOLESTEROL,CALCULATED 85 mg/dL; LDL/HDL RATIO 1.1 (<4.4); MAGNESIUM 3.1 mg/dL (1.7-2.8); SODIUM 139 mmol/L (135-145); TOTAL PROTEIN 6.6 g/dL (6.7-8.2); URIC ACID 8.9 mg/dL (2.6-7.2); VLDL CHOLESTEROL 21 mg/dL
[2019-05-10 12:48] LABS: THYROID STIMULATING HORMONE 1.87 uIU/mL (0.34-5.60)
[2019-05-10 12:51] LABS: FREE T4 (FREE THYROXINE) 2.29 ng/dL (0.58-1.64)
== END 2019-05-10 23:59 | disposition home or self-care (01) ==
LOC: LAB.N 09:08
PROVIDERS: ATTEND Family Medicine
DX: E03.9 Hypothyroidism, unspecified (principal); N18.4 Chronic kidney disease, stage 4 (severe); E78.5 Hyperlipidemia, unspecified; I12.9 Hypertensive chronic kidney disease with stage 1 through stage 4 chronic kidney disease, or unspecified chronic kidney disease; N18.3 Chronic kidney disease, stage 3 (moderate); I48.91 Unspecified atrial fibrillation
CPT/HCPCS: 36415; 80053; 80061; 80069; 81001; 82043; 82570; 83721; 83735; 83970; 84439; 84443; 84550; 85025; 85610

== ENCOUNTER 2019-05-13 09:00 | Outpatient (CLI) | payer MEDICARE, OTHER ==
[2019-05-13 18:53] LABS: CREATININE,URINE 101.5 mg/dL; MICROALBUM/CREATININE RATIO,UR 11.8 ug/mg (<30.0); MICROALBUMIN,URINE 1.2 mg/dL (0-300.0)
[2019-05-13 19:48] LABS: BILIRUBIN,URINE NEGATIVE (NEGATIVE); CLARITY,URINE CLEAR (CLEAR); GLUCOSE, URINE (UA) NEGATIVE (NEGATIVE); KETONES,URINE (UA) NEGATIVE (NEGATIVE); LEUKOCYTE ESTERASE, URINE SMALL (NEGATIVE); NITRITE,URINE NEGATIVE (NEGATIVE); OCCULT BLOOD,URINE NEGATIVE (NEGATIVE); PH,URINE 5.5 PH (5.0-7.5); PROTEIN,URINE NEGATIVE (NEGATIVE); UROBILINOGEN,URINE 0.2 (NORMAL) E.U./dL (NORMAL)
[2019-05-13 20:04] LABS: BACTERIA,URINE None Seen /HPF (None Seen); CASTS, URINE 6-10 Hyaline Casts /LPF; CRYSTALS,URINE 11-25 Ca Oxalate /LPF; RBC,URINE 0-5 /HPF (0-5); SQUAMOUS EPITHELIAL CELL,UR FEW Squamous (<= Few)
== END 2019-05-15 23:59 | disposition home or self-care (01) ==
LOC: LAB.R 09:00
PROVIDERS: ATTEND Internal Medicine Nephrology
DX: N18.3 Chronic kidney disease, stage 3 (moderate) (principal)
CPT/HCPCS: 81001; 82043; 82570

== ENCOUNTER 2019-05-20 13:22 | Outpatient (CLI) | payer MEDICARE, OTHER | END 2019-05-20 23:59 | disposition home or self-care (01) | LOC: LAB.N 13:22 | PROVIDERS: ATTEND Family Medicine | DX: I48.91 Unspecified atrial fibrillation (principal) | CPT/HCPCS: 85610 ==

== ENCOUNTER 2019-05-30 09:13 | Outpatient (CLI) | payer MEDICARE, OTHER | END 2019-05-30 23:59 | disposition home or self-care (01) | LOC: LAB.N 09:13 | PROVIDERS: ATTEND Family Medicine | DX: I48.91 Unspecified atrial fibrillation (principal) | CPT/HCPCS: 85610 ==

== ENCOUNTER 2019-06-06 10:21 | Outpatient (CLI) | payer MEDICARE, OTHER ==
[2019-06-06 18:37] LABS: BASOPHILS # (AUTO) 0.1 10^3/uL (0.0-0.1); BASOPHILS % (AUTO) 1.3 %; EOSINOPHILS # (AUTO) 0.2 10^3/uL (0.0-0.7); EOSINOPHILS % (AUTO) 4.8 %; LYMPHOCYTES # (AUTO) 0.5 10^3/uL (1.5-3.5); LYMPHOCYTES % (AUTO) 10.8 %; MEAN CORPUSCULAR HEMOGLOBIN 29.1 pg (27.0-31.0); MEAN CORPUSCULAR HGB CONC 32.9 g/dL (32.0-36.0); MEAN CORPUSCULAR VOLUME 88.6 fL (81.0-99.0); MEAN PLATELET VOLUME 9.7 fL (7.9-10.8); MONOCYTES # (AUTO) 0.6 10^3/uL (0.0-1.0); NEUTROPHILS # (AUTO) 3.2 10^3/uL (1.5-6.6); NEUTROPHILS % (AUTO) 69.7 %; PLT - PLATELET COUNT 223 10^3/uL (130-450); RED BLOOD COUNT 4.12 10^6/uL (4.20-5.40); RED CELL DISTRIBUTION WIDTH 14.4 % (12.0-15.0); WHITE BLOOD COUNT 4.6 x10^3/uL (4.8-10.8)
[2019-06-06 18:56] LABS: CALCIUM 8.4 mg/dL (8.5-10.3); CREATININE 1.8 mg/dL (0.4-1.0); MAGNESIUM 1.9 mg/dL (1.7-2.8)
[2019-06-06 19:01] LABS: CREATININE,URINE 93.9 mg/dL; MICROALBUM/CREATININE RATIO,UR 10.6 ug/mg (<30.0)
[2019-06-06 19:29] LABS: BILIRUBIN,URINE NEGATIVE (NEGATIVE); GLUCOSE, URINE (UA) NEGATIVE (NEGATIVE); KETONES,URINE (UA) NEGATIVE (NEGATIVE); LEUKOCYTE ESTERASE, URINE MODERATE (NEGATIVE); NITRITE,URINE NEGATIVE (NEGATIVE); OCCULT BLOOD,URINE NEGATIVE (NEGATIVE); PROTEIN,URINE NEGATIVE (NEGATIVE); UROBILINOGEN,URINE 0.2 (NORMAL) E.U./dL (NORMAL)
[2019-06-06 20:32] LABS: BACTERIA,URINE None Seen /HPF (None Seen); CLARITY,URINE CLEAR (CLEAR); RBC,URINE 0-5 /HPF (0-5); SQUAMOUS EPITHELIAL CELL,UR RARE Squamous (<= Few)
[2019-06-06 20:33] LABS: CASTS, URINE 0-2 Hyaline Casts /LPF
== END 2019-06-06 23:59 | disposition home or self-care (01) ==
LOC: LAB.N 10:21
PROVIDERS: ATTEND Family Medicine
DX: N18.3 Chronic kidney disease, stage 3 (moderate) (principal); I48.91 Unspecified atrial fibrillation
CPT/HCPCS: 36415; 80048; 81001; 82043; 82570; 83735; 85025; 85610

== ENCOUNTER 2020-02-10 17:21 | Outpatient (CLI) | payer MEDICARE, OTHER | END 2020-02-10 17:22 | disposition critical access hospital (66) | LOC: EMS 17:21 | PROVIDERS: ATTEND Surgery | DX: R53.1 Weakness (principal); R06.02 Shortness of breath; R71.0 Precipitous drop in hematocrit | CPT/HCPCS: A0425; A0429 ==

== ENCOUNTER 2020-02-18 09:44 | Outpatient (CLI) | payer MEDICARE, OTHER | END 2020-02-18 09:45 | disposition critical access hospital (66) | LOC: EMS 09:44 | PROVIDERS: ATTEND Surgery | DX: R53.83 Other fatigue (principal); R34 Anuria and oliguria; K59.00 Constipation, unspecified | CPT/HCPCS: A0425; A0427 ==

== ENCOUNTER 2020-02-18 10:02 | Emergency (ER) | payer MEDICARE, OTHER ==
--- NOTE | 2020-02-18 10:56 | XRAY Report ---
PROCEDURE: Chest 1 View X-Ray INDICATIONS: Chest pain TECHNIQUE: One view of the chest was acquired. COMPARISON: 02/10/2020 FINDINGS: Surgical changes and devices: None. Lungs and pleura: No pleural effusions or pneumothorax. Lungs are clear. Mediastinum: Mediastinal contours appear normal. Heart is enlarged Bones and chest wall: No suspicious bony lesions. Overlying soft tissues appear unremarkable. IMPRESSION: No acute cardiopulmonary disease process. Cardiomegaly. Reviewed by: Lilia Walker MD, PhD on 02/18/2020 10:55 AM [facility] Approved by: Lilia Walker MD, PhD on 02/18/2020 10:55 AM [facility] Station ID: [id number]
[2020-02-18 11:05] LABS: BASOPHILS % (AUTO) 0.2 %; EOSINOPHILS # (AUTO) 0.1 10^3/uL (0.0-0.7); EOSINOPHILS % (AUTO) 0.5 %; HGB - HEMOGLOBIN 9.4 g/dL (12.0-16.0); LYMPHOCYTES # (AUTO) 0.3 10^3/uL (1.5-3.5); LYMPHOCYTES % (AUTO) 1.6 %; MEAN CORPUSCULAR HEMOGLOBIN 24.7 pg (27.0-31.0); MEAN CORPUSCULAR HGB CONC 31.5 g/dL (32.0-36.0); MEAN CORPUSCULAR VOLUME 78.2 fL (81.0-99.0); MEAN PLATELET VOLUME 9.5 fL (7.9-10.8); MONOCYTES # (AUTO) 1.3 10^3/uL (0.0-1.0); MONOCYTES % (AUTO) 7.8 %; NEUTROPHILS # (AUTO) 15.1 10^3/uL (1.5-6.6); NEUTROPHILS % (AUTO) 88.9 %; PLT - PLATELET COUNT 226 10^3/uL (130-450); RED BLOOD COUNT 3.81 10^6/uL (4.20-5.40); RED CELL DISTRIBUTION WIDTH 19.4 % (12.0-15.0)
[2020-02-18 11:27] LABS: ALBUMIN 3.2 g/dL (3.2-5.5); BILIRUBIN,TOTAL 0.8 mg/dL (0.2-1.0); CALCIUM 8.5 mg/dL (8.5-10.3); TOTAL PROTEIN 6.5 g/dL (6.7-8.2)
[2020-02-18 11:29] LABS: CREATININE 8.8 mg/dL (0.4-1.0)
[2020-02-18] MEDS ORDERED: LACTATED RINGERS 1,000 ML IV ONE (11:39)
[2020-02-18 11:45] LABS: BILIRUBIN,URINE NEGATIVE (NEGATIVE); GLUCOSE, URINE (UA) NEGATIVE (NEGATIVE); KETONES,URINE (UA) NEGATIVE (NEGATIVE); LEUKOCYTE ESTERASE, URINE NEGATIVE (NEGATIVE); NITRITE,URINE NEGATIVE (NEGATIVE); OCCULT BLOOD,URINE SMALL (NEGATIVE); PH,URINE 5.5 PH (5.0-7.5); PROTEIN,URINE TRACE mg/dL (NEGATIVE); UROBILINOGEN,URINE 0.2 (NORMAL) E.U./dL (NORMAL)
[2020-02-18 12:07] LABS: AMORPHOUS SEDIMENT,UR Few /LPF; BACTERIA,URINE Few /HPF (None Seen); CLARITY,URINE HAZY (CLEAR); EPITHELIAL CELLS,UR RARE Renal Tubular /HPF (<= Few); RBC,URINE 0-5 /HPF (0-5); SQUAMOUS EPITHELIAL CELL,UR NONE SEEN (<= Few)
--- NOTE | 2020-02-18 12:37 | ED Physician Documentation ---
History of Present Illness - Stated complaint Stated Complaint: GENERAL WEAKNESS - Chief complaint Chief Complaint: Neuro - History obtained from History obtained from: Patient, Family - Additonal information Additional information: 79-year-old woman with history of heart failure, A. 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 Patient was discharged from the hospital last week and had a blood transfusion at that time for anemia of unknown source. Upon discharge she reports that she has not urinated or defecated and was finally brought in this morning after having a choking episode.Patient states she has generalized weakness but no fevers no chest pain shortness of breath ,Nausea vomiting diarrhea urinary symptoms of dysuria or hematuria. No back pain.Patient does endorse diffuse abdominal pain Review of Systems Ten Systems: 10 systems reviewed and negative Constitutional: reports: Myalgias. denies: Fever, Chills GI: reports: Abdominal Pain. denies: Nausea, Vomiting : reports: Unable to Void PD PAST MEDICAL HISTORY - Past Medical History Cardiovascular: Congestive heart failure, Hypertension, High cholesterol, Coronary artery disease, Peripheral Vascular Disease, Angina, Atrial fibrillation Respiratory: Asthma, Shortness of breath, Other (Sarcoidosis) Neuro: Headaches Endocrine/Autoimmune: None, HyPOthyroidism, Other GI: GI bleed, Ulcers : Renal insuffiency HEENT: None Psych: Anxiety, Eating disorder Musculoskeletal: Osteoarthritis, Rheumatoid arthritis Derm: None - Past Surgical History Past Surgical History: Yes General: Bowel surgery 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 Cardiovascular: Coronary stent HEENT: Cataracts - Present Medications Home Medications: Ambulatory Orders Medication Instructions Recorded Confirmed Simvastatin 20 mg PO QPM 06/05/14 02/11/20 Hydroxychloroquine Sulfate 200 mg PO DAILY 02/17/18 02/11/20 Warfarin Sodium 1.5 mg PO QDWARFARIN 02/17/18 02/11/20 Biotin 1,000 mcg PO DAILY 02/18/18 02/11/20 Cholecalciferol [Vitamin D3] 5,000 unit PO DAILY capsule 02/19/18 02/11/20 Furosemide 20 mg PO DAILY 04/23/18 02/11/20 Isosorbide Mononitrate ER [Imdur] 30 mg PO BID 04/23/18 02/11/20 carvediloL [Carvedilol] 6.25 mg PO DAILY 04/23/18 02/11/20 Levothyroxine Sodium 50 mcg PO DAILY 02/11/20 02/11/20 Potassium Chloride 40 meq PO DAILY 02/11/20 02/11/20 Ferrous Sulfate [Feosol] 325 mg PO DAILYWM #30 tablet 02/12/20 - Allergies Allergies/Adverse Reactions: Allergies Allergy/AdvReac Type Severity Reaction Status Date / Time Penicillins Allergy Anaphylaxis Verified 02/18/20 10:27 shellfish derived Allergy Hives Verified 02/18/20 10:27 tree nut Allergy Respiratory Verified 02/18/20 10:27 Bleach (Sodium Hypochlorite) AdvReac Respiratory Verified 02/18/20 10:27 codeine AdvReac Hallucinati Verified 02/18/20 10:27 ons - Social History Does the pt smoke?: No Smoking Status: Never smoker Does the pt drink ETOH?: No Does the pt have substance abuse?: No - Immunizations Immunizations are current?: No Immunizations: TDAP current <10years - POLST Patient has POLST: Yes PD ED PE NORMAL - Vitals Vital signs reviewed: Yes - General General: Alert and oriented X 3 - HEENT HEENT: Atraumatic, PERRL, EOMI - Neck Neck: Supple, no meningeal sign - Cardiac Cardiac: RRR - Respiratory Respiratory: No respiratory distress, Clear bilaterally - Abdomen Abdomen: Other (diffusely ttp) - Female Female : Deferred - Rectal Rectal: Deferred - Back Back: No CVA TTP - Derm Derm: Normal color - Extremities Extremities: No deformity - Neuro Neuro: Alert and oriented X 3 - Psych Psych: Normal mood, Normal affect Results - Vitals Vitals: Vital Signs - 24 hr 02/18/20 02/18/20 02/18/20 10:07 11:00 11:30 Temperature 36.6 C Heart Rate 88 84 83 Respiratory 22 22 15 Rate Blood Pressure 105/66 119/72 127/65 O2 Saturation 99 96 02/18/20 02/18/20 02/18/20 12:18 12:30 13:00 Temperature Heart Rate 82 85 88 Respiratory 16 17 19 Rate Blood Pressure 127/73 124/83 H 136/76 H O2 Saturation 96 96 02/18/20 15:05 Temperature Heart Rate 81 Respiratory 17 Rate Blood Pressure 132/89 H O2 Saturation 96 Oxygen O2 Source [With Activity] Room air O2 Source Room air - Labs Labs: Laboratory Tests 02/18/20 02/18/20 02/18/20 10:55 10:55 10:55 WBC 17.0 H RBC 3.81 L Hgb 9.4 L Hct 29.8 L MCV 78.2 L MCH 24.7 L MCHC 31.5 L RDW 19.4 H Plt Count 226 MPV 9.5 Neut # (Auto) 15.1 H Lymph # (Auto) 0.3 L [place] # (Auto) 1.3 H Eos # (Auto) 0.1 Baso # (Auto) 0.0 Absolute Nucleated RBC 0.00 Nucleated RBC % 0.0 PT INR APTT Sodium 136 Potassium 4.5 Chloride 92 L Carbon Dioxide 23 Anion Gap 21.0 H BUN 98 H* Creatinine 8.8 H* Estimated GFR (MDRD) 4 L Glucose 114 H Lactic Acid Calcium 8.5 Total Bilirubin 0.8 AST 20 ALT 22 Alkaline Phosphatase 84 Troponin I High Sens 74.0 H* Total Protein 6.5 L Albumin 3.2 Globulin 3.3 Albumin/Globulin Ratio 1.0 Lipase 35 Urine Color Urine Clarity Urine pH Ur Specific Reading Urine Protein Urine Glucose (UA) Urine Ketones Urine Occult Blood Urine Nitrite Urine Bilirubin Urine Urobilinogen Ur Leukocyte Esterase Urine RBC Urine WBC Ur Epithelial Cells Ur Squamous Epith Cells Amorphous Sediment Urine Bacteria Nasal Adenovirus (PCR) Nasal B. parapertussis DNA (PCR) Nasal Coronavir 229E PCR Nasal Coronavir HKU1 PCR Nasal Coronavir NL63 PCR Nasal Coronavir OC43 PCR Nasal Enterovir/Rhinovir PCR Nasal Influenza B PCR Nasal Influenza A PCR Nasal Parainfluen 1 PCR Nasal Parainfluen 2 PCR Nasal Parainfluen 3 PCR Nasal Parainfluen 4 PCR Nasal RSV (PCR) Nasal B.pertussis DNA PCR Nasal C.pneumoniae (PCR) Bhaskar Human Metapneumo PCR Nasal M.pneumoniae (PCR) Nasal SARS-CoV-2 (PCR) 02/18/20 02/18/20 02/18/20 10:55 10:55 11:28 WBC RBC Hgb Hct MCV MCH MCHC RDW Plt Count MPV Neut # (Auto) Lymph # (Auto) [place] # (Auto) Eos # (Auto) Baso # (Auto) Absolute Nucleated RBC Nucleated RBC % PT 26.1 H INR 2.5 H APTT 29.7 Sodium Potassium Chloride Carbon Dioxide Anion Gap BUN Creatinine Estimated GFR (MDRD) Glucose Lactic Acid Calcium Total Bilirubin AST ALT Alkaline Phosphatase Troponin I High Sens Total Protein Albumin Globulin Albumin/Globulin Ratio Lipase Urine Color YELLOW Urine Clarity HAZY Urine pH 5.5 Ur Specific Reading 1.020 Urine Protein TRACE Urine Glucose (UA) NEGATIVE Urine Ketones NEGATIVE Urine Occult Blood SMALL H Urine Nitrite NEGATIVE Urine Bilirubin NEGATIVE Urine Urobilinogen 0.2 (NORMAL) Ur Leukocyte Esterase NEGATIVE Urine RBC 0-5 Urine WBC 0-3 Ur Epithelial Cells RARE Renal Tubular Ur Squamous Epith Cells NONE SEEN Amorphous Sediment Few Urine Bacteria Few Nasal Adenovirus (PCR) Nasal B. parapertussis DNA (PCR) Nasal Coronavir 229E PCR Nasal Coronavir HKU1 PCR Nasal Coronavir NL63 PCR Nasal Coronavir OC43 PCR Nasal Enterovir/Rhinovir PCR Nasal Influenza B PCR Nasal Influenza A PCR Nasal Parainfluen 1 PCR Nasal Parainfluen 2 PCR Nasal Parainfluen 3 PCR Nasal Parainfluen 4 PCR Nasal RSV (PCR) Nasal B.pertussis DNA PCR Nasal C.pneumoniae (PCR) Bhaskar Human Metapneumo PCR Nasal M.pneumoniae (PCR) Nasal SARS-CoV-2 (PCR) 02/18/20 02/18/20 12:00 12:13 WBC RBC Hgb Hct MCV MCH MCHC RDW Plt Count MPV Neut # (Auto) Lymph # (Auto) [place] # (Auto) Eos # (Auto) Baso # (Auto) Absolute Nucleated RBC Nucleated RBC % PT INR APTT Sodium Potassium Chloride Carbon Dioxide Anion Gap BUN Creatinine Estimated GFR (MDRD) Glucose Lactic Acid 0.8 Calcium Total Bilirubin AST ALT Alkaline Phosphatase Troponin I High Sens Total Protein Albumin Globulin Albumin/Globulin Ratio Lipase Urine Color Urine Clarity Urine pH Ur Specific Reading Urine Protein Urine Glucose (UA) Urine Ketones Urine Occult Blood Urine Nitrite Urine Bilirubin Urine Urobilinogen Ur Leukocyte Esterase Urine RBC Urine WBC Ur Epithelial Cells Ur Squamous Epith Cells Amorphous Sediment Urine Bacteria Nasal Adenovirus (PCR) NOT DETECTED Nasal B. parapertussis DNA (PCR) NOT DETECTED Nasal Coronavir 229E PCR NOT DETECTED Nasal Coronavir HKU1 PCR NOT DETECTED Nasal Coronavir NL63 PCR NOT DETECTED Nasal Coronavir OC43 PCR NOT DETECTED Nasal Enterovir/Rhinovir PCR NOT DETECTED Nasal Influenza B PCR NOT DETECTED Nasal Influenza A PCR NOT DETECTED Nasal Parainfluen 1 PCR NOT DETECTED Nasal Parainfluen 2 PCR NOT DETECTED Nasal Parainfluen 3 PCR NOT DETECTED Nasal Parainfluen 4 PCR NOT DETECTED Nasal RSV (PCR) NOT DETECTED Nasal B.pertussis DNA PCR NOT DETECTED Nasal C.pneumoniae (PCR) NOT DETECTED Bhaskar Human Metapneumo PCR NOT DETECTED Nasal M.pneumoniae (PCR) NOT DETECTED Nasal SARS-CoV-2 (PCR) NOT DETECTED PD MEDICAL DECISION MAKING - ED course ED course: Patient found to be in severe DOMO. [facility] [facility] [place] [facility] [place] Will evaluate urinalysis and ct for signs of obstruction. Departure - Departure Disposition: 02 Transfer Acute Care Hosp Clinical Impression: NSTEMI (non-ST elevated myocardial infarction), DOMO (acute kidney injury), Weakness Condition: Stable Discharge Date/Time: 02/18/20 16:43
[2020-02-18 13:23] LABS: C. PNEUMONIAE- RESP PCR PANEL NOT DETECTED
--- NOTE | 2020-02-18 13:53 | CT Report ---
PROCEDURE: Abdomen/Pelvis WO INDICATIONS: abdominal pain, severe DOMO TECHNIQUE: Noncontrast 5 mm thick sections acquired from the diaphragms to the symphysis. 5 mm coronal and sagi ttal reformats were then performed. For radiation dose reduction, the following was used: automated exposure control, adjustment of mA and/or kV according to patient size. COMPARISON: 07/10/2014. FINDINGS: Image quality: Excellent. ABDOMEN: Lung bases: Lung bases are clear. Mild four-chamber cardiomegaly. Coronary artery calcifications. Solid organs: Liver and spleen are normal in size. Gallbladder is unremarkable. Pancreas is normal in contours. No adrenal nodules. Left kidney is small and shrunken, progressed from the previous st udy. Right kidney is normal in size without hydronephrosis. Peritoneum and bowel: Unenhanced bowel loops demonstrate normal wall thickness and caliber. No free fluid or air. There is a third portion of duodenum intraluminal lipoma measuring 1.1 cm. Nodes and vessels: No retroperitoneal or mesenteric adenopathy by size criteria. Aorta and inferior vena cava are normal in caliber. Diffuse aortic atherosclerotic calcifications. Miscellaneous: No ventral hernias. PELVIS: Genitourinary: Bladder wall thickness is normal. Miscellaneous: No inguinal hernias or adenopathy. Uterus is surgically absent. Slight interval grow th of a cystic lesion of the left adnexa, previously measuring 6.2 x 4.2 cm on prior image 61/3 and c urrently measuring 7.2 x 4.2 cm on current image 61/3. Interval increase in size of a cystic right ad nexal lesion which previously measured approximately 2.5 x 2.2 cm on previous image 58/3 and currentl y measures approximately 5.5 x 3.7 cm on current image 61/3. Bones: No suspicious bony lesions. No vertebral body compression fractures. Diffuse lumbar degener ative change. IMPRESSION: 1. Small, shrunken left kidney. Normal size right kidney with no hydronephrosis. 2. Four-chamber cardiomegaly. 3. Coronary artery disease. 4. Diffuse aortic atherosclerosis. 5. Incidental note made of an intraluminal third portion duodenal lipoma measuring 1.1 cm. 6. Very slight interval growth of a 7.2 cm maximum diameter left adnexal cystic lesion. 7. Significant interval growth of a right adnexal cystic lesion, with current maximum diameter of 5.5 cm. Comment: The adnexal lesions may potentially be secondary to benign or malignant etiologies. In the c orrect clinical setting, gynecological consultation may be appropriate. Reviewed by: Alexis Fernandez MD on 02/18/2020 1:52 PM PST Approved by: Alexis Fernandez MD on 02/18/2020 1:52 PM PST Station ID: [id number]
[2020-02-18 14:07] LABS: INR 2.5 (0.8-1.2); PT - PROTHROMBIN TIME 26.1 secs (9.9-12.6)
[2020-02-18 15:06] VITALS: BP 132/89
== END 2020-02-18 16:43 | disposition short-term general hospital (02) ==
LOC: EDUNIT# → ED 10:02
DX: I21.4 Non-ST elevation (NSTEMI) myocardial infarction (principal); N17.9 Acute kidney failure, unspecified; R53.1 Weakness; Z20.828 Contact with and (suspected) exposure to other viral communicable diseases; I13.0 Hypertensive heart and chronic kidney disease with heart failure and stage 1 through stage 4 chronic kidney disease, or unspecified chronic kidney disease; N18.9 Chronic kidney disease, unspecified; I50.9 Heart failure, unspecified; I48.91 Unspecified atrial fibrillation; Z79.01 Long term (current) use of anticoagulants
CPT/HCPCS: 36415; 51701; 51798; 71045; 74176; 80053; 81001; 83605; 83690; 84484; 85025; 85610; 85730; 87631; 93005; 96360; 96361; 99285; J7120; 0202U; 81003

== ENCOUNTER 2020-02-18 16:33 | Outpatient (CLI) | payer MEDICARE, OTHER | END 2020-02-18 16:34 | disposition short-term general hospital (02) | LOC: EMS 16:33 | PROVIDERS: ATTEND Surgery | DX: N17.9 Acute kidney failure, unspecified (principal); I21.4 Non-ST elevation (NSTEMI) myocardial infarction; R53.1 Weakness | CPT/HCPCS: A0425; A0426 ==

== ENCOUNTER 2020-05-12 08:00 | Outpatient (CLI) | payer MEDICARE, OTHER ==
[2020-05-12 17:54] LABS: BASOPHILS # (AUTO) 0.1 10^3/uL (0.0-0.1); BASOPHILS % (AUTO) 1.8 %; EOSINOPHILS # (AUTO) 0.2 10^3/uL (0.0-0.7); EOSINOPHILS % (AUTO) 4.8 %; HCT - HEMATOCRIT 36.7 % (37.0-47.0); HGB - HEMOGLOBIN 11.5 g/dL (12.0-16.0); LYMPHOCYTES # (AUTO) 0.5 10^3/uL (1.5-3.5); LYMPHOCYTES % (AUTO) 10.9 %; MEAN CORPUSCULAR HGB CONC 31.3 g/dL (32.0-36.0); MEAN CORPUSCULAR VOLUME 89.5 fL (81.0-99.0); MEAN PLATELET VOLUME 9.8 fL (7.9-10.8); MONOCYTES # (AUTO) 0.7 10^3/uL (0.0-1.0); MONOCYTES % (AUTO) 15.9 %; NEUTROPHILS # (AUTO) 2.9 10^3/uL (1.5-6.6); NEUTROPHILS % (AUTO) 66.4 %; PLT - PLATELET COUNT 184 10^3/uL (130-450); RED CELL DISTRIBUTION WIDTH 15.9 % (12.0-15.0); WHITE BLOOD COUNT 4.4 x10^3/uL (4.8-10.8)
[2020-05-12 17:59] LABS: INR 1.2 (0.8-1.2); PT - PROTHROMBIN TIME 13.2 secs (9.9-12.6)
[2020-05-12 18:09] LABS: ALBUMIN 3.8 g/dL (3.2-5.5); ALBUMIN/GLOBULIN RATIO 1.4 (1.0-2.2); ALKALINE PHOSPHATASE 91 IU/L (42-121); ALT ALANINE AMINOTRANSFERASE 11 IU/L (10-60); AST ASPARTATE AMINOTRANSFERASE 16 IU/L (10-42); BUN - BLOOD UREA NITROGEN 14 mg/dL (6-20); CALCIUM 9.1 mg/dL (8.5-10.3); CARBON DIOXIDE - CO2 27 mmol/L (21-32); CHLORIDE 99 mmol/L (101-111); CHOLESTEROL 183 mg/dL; CREATININE 1.9 mg/dL (0.4-1.0); GFR - MDRD 25 (>89); GLUCOSE 96 mg/dL (70-100); HDL CHOLESTEROL 93 mg/dL; LDL CHOLESTEROL,CALCULATED 75 mg/dL; LDL/HDL RATIO 0.8 (<4.4); POTASSIUM 3.7 mmol/L (3.5-5.0); SODIUM 137 mmol/L (135-145); TOTAL PROTEIN 6.6 g/dL (6.7-8.2); TRIGLYCERIDES 75 mg/dL; VLDL CHOLESTEROL 15 mg/dL
[2020-05-12 18:19] LABS: THYROID STIMULATING HORMONE 2.03 uIU/mL (0.34-5.60)
[2020-05-12 18:21] LABS: FREE T4 (FREE THYROXINE) 1.54 ng/dL (0.58-1.64)
== END 2020-05-12 23:59 | disposition home or self-care (01) ==
LOC: LAB.WCP 08:00
PROVIDERS: ATTEND Family Medicine
DX: I48.91 Unspecified atrial fibrillation (principal); Z79.01 Long term (current) use of anticoagulants; K21.9 Gastro-esophageal reflux disease without esophagitis; I12.9 Hypertensive chronic kidney disease with stage 1 through stage 4 chronic kidney disease, or unspecified chronic kidney disease; E78.5 Hyperlipidemia, unspecified; N18.4 Chronic kidney disease, stage 4 (severe); E03.9 Hypothyroidism, unspecified
CPT/HCPCS: 36415; 80053; 80061; 83721; 84439; 84443; 85025; 85610

== ENCOUNTER 2020-05-27 12:13 | Outpatient (CLI) | payer MEDICARE, OTHER | END 2020-05-27 12:14 | disposition home or self-care (01) | LOC: LAB.N 12:13 | PROVIDERS: ATTEND Family Medicine | DX: I48.91 Unspecified atrial fibrillation (principal) | CPT/HCPCS: 85610 ==

== ENCOUNTER 2020-06-05 10:37 | Outpatient (CLI) | payer MEDICARE, OTHER ==
[2020-06-05 13:08] LABS: CALCIUM 9.1 mg/dL (8.5-10.3); CREATININE 2.8 mg/dL (0.4-1.0); POTASSIUM 4.2 mmol/L (3.5-5.0)
== END 2020-06-05 10:38 | disposition home or self-care (01) ==
LOC: LAB.N 10:37
PROVIDERS: ATTEND Internal Medicine Nephrology
DX: N17.9 Acute kidney failure, unspecified (principal); I48.91 Unspecified atrial fibrillation
CPT/HCPCS: 36415; 80048; 85610

== ENCOUNTER 2020-06-12 08:00 | Outpatient (CLI) | payer MEDICARE, OTHER | END 2020-06-12 23:59 | disposition home or self-care (01) | LOC: LAB.N 08:00 | PROVIDERS: ATTEND Family Medicine | DX: I48.91 Unspecified atrial fibrillation (principal) | CPT/HCPCS: 85610 ==

== ENCOUNTER 2020-06-16 15:03 | Outpatient (CLI) | payer MEDICARE, OTHER ==
[2020-06-16 18:11] LABS: CALCIUM 9.5 mg/dL (8.5-10.3); CREATININE 2.4 mg/dL (0.4-1.0); POTASSIUM 4.9 mmol/L (3.5-5.0)
== END 2020-06-16 15:04 | disposition home or self-care (01) ==
LOC: LAB.N 15:03
PROVIDERS: ATTEND Internal Medicine Nephrology
DX: N17.9 Acute kidney failure, unspecified (principal)
CPT/HCPCS: 36415; 80048

== ENCOUNTER 2020-06-17 23:13 | Outpatient (CLI) | payer MEDICARE, OTHER | END 2020-06-17 23:14 | disposition critical access hospital (66) | LOC: EMS 23:13 | PROVIDERS: ATTEND Emergency Medicine | DX: R11.2 Nausea with vomiting, unspecified (principal); R42 Dizziness and giddiness; R53.1 Weakness | CPT/HCPCS: A0425; A0427 ==

== ENCOUNTER 2020-06-17 23:32 | Emergency (ER) | payer MEDICARE, OTHER ==
--- NOTE | 2020-06-17 23:54 | ED Physician Documentation ---
PD HPI HEENT - Stated complaint Stated Complaint: DIZZY, VOMITING, WEAKNESS - History obtained from History obtained from: Patient, EMS - History of Present Illness Timing - onset: How many hours ago (1-2) Timing - duration: Hours (1-2) Timing - details: Abrupt onset, Still present Location: Other (vertigo onset when got up from sitting. Did not bend over nor turn quickly, but had abrupt severe vertigo with nausea and vomiting. No headache. No focal weaknesses.) Improves: Other (holding head still.) Worsens: Position Associated symptoms: No: Fever, Congestion, Headache, Cough Similar symptoms before: Diagnosis (has had episodes of peripheral vertigo in the past, feeling similar.) Review of Systems Constitutional: denies: Fever, Chills Eyes: denies: Loss of vision Ears: denies: Ear pain Nose: denies: Rhinorrhea / runny nose, Congestion, Sinus pressure / pain Throat: denies: Sore throat Cardiac: denies: Chest pain / pressure, Pedal edema, Calf pain Respiratory: denies: Cough Neurologic: denies: Focal weakness, Numbness, Altered mental status, Headache PD PAST MEDICAL HISTORY - Past Medical History Cardiovascular: Congestive heart failure, Hypertension, High cholesterol, Coronary artery disease, Peripheral Vascular Disease, Angina, Atrial fibrillation Respiratory: Asthma, Shortness of breath, Other (Sarcoidosis) Neuro: Headaches Endocrine/Autoimmune: None, HyPOthyroidism, Other GI: GI bleed, Ulcers : Renal insuffiency HEENT: None Psych: Anxiety, Eating disorder Musculoskeletal: Osteoarthritis, Rheumatoid arthritis Derm: None - Past Surgical History Past Surgical History: Yes General: Bowel surgery 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 Cardiovascular: Coronary stent HEENT: Cataracts - Present Medications Home Medications: Ambulatory Orders Medication Instructions Recorded Confirmed Simvastatin 20 mg PO QPM 06/05/14 06/18/20 Hydroxychloroquine Sulfate 200 mg PO DAILY 02/17/18 06/18/20 Warfarin Sodium 1.5 mg PO QDWARFARIN 02/17/18 06/18/20 Biotin 1,000 mcg PO DAILY 02/18/18 02/11/20 Cholecalciferol [Vitamin D3] 5,000 unit PO DAILY capsule 02/19/18 06/18/20 Furosemide 20 mg PO DAILY 04/23/18 06/18/20 Isosorbide Mononitrate ER [Imdur] 30 mg PO BID 04/23/18 02/11/20 carvediloL [Carvedilol] 6.25 mg PO BID 04/23/18 02/11/20 Levothyroxine Sodium 50 mcg PO DAILY 02/11/20 06/18/20 Potassium Chloride 40 meq PO DAILY 02/11/20 02/11/20 Ferrous Sulfate [Feosol] 325 mg PO DAILYWM #30 tablet 02/12/20 06/18/20 Meclizine [Antivert] 25 mg PO Q8H PRN #20 tablet 06/18/20 Ondansetron Odt [Zofran] 4 mg TL Q6H PRN #10 tablet 06/18/20 - Allergies Allergies/Adverse Reactions: Allergies Allergy/AdvReac Type Severity Reaction Status Date / Time Penicillins Allergy Anaphylaxis Verified 06/17/20 23:40 shellfish derived Allergy Hives Verified 06/17/20 23:40 tree nut Allergy Respiratory Verified 06/17/20 23:40 Bleach (Sodium Hypochlorite) AdvReac Respiratory Verified 06/17/20 23:40 codeine AdvReac Hallucinati Verified 06/17/20 23:40 ons - Social History Does the pt smoke?: No Smoking Status: Never smoker Does the pt drink ETOH?: No Does the pt have substance abuse?: No - Immunizations Immunizations are current?: No Immunizations: TDAP current <10years - POLST Patient has POLST: Yes PD ED PE NORMAL - Vitals Vital signs reviewed: Yes - General General: Alert and oriented X 3, Well developed/nourished, Other (guarding ROM of the head and appears uncomfortable due to nausea and vertigo. ) - HEENT HEENT: PERRL, EOMI (nystagmus noted to the left. ) - Neck Neck: Supple, no meningeal sign, No adenopathy, No bruit - Cardiac Cardiac: No: RRR (irregular but good rate under 100. ) - Respiratory Respiratory: Clear bilaterally - Abdomen Abdomen: Soft, Non tender - Derm Derm: Normal color, Warm and dry - Extremities Extremities: No edema, No calf tenderness / cord - Neuro Neuro: Alert and oriented X 3, range mechanic 2-12 intact, No motor deficit, No sensory deficit, Normal speech Eye Opening: Spontaneous Motor: Obeys Commands Verbal: Oriented GCS Score: 15 Results - Vitals Vitals: Vital Signs - 24 hr 06/17/20 06/17/20 06/18/20 23:36 23:41 01:41 Temperature 36.8 C 36.8 C 36.8 C Heart Rate 71 71 69 Respiratory 12 17 16 Rate Blood Pressure 155/125 H 139/93 H 116/69 O2 Saturation 98 96 98 06/18/20 02:49 Temperature 36.9 C Heart Rate 71 Respiratory 16 Rate Blood Pressure 114/62 O2 Saturation 99 Oxygen O2 Source [With Activity] Room air O2 Source Room air - EKG (time done) 23:59 Rate: Rate (enter#) (100) Rhythm: Atrial fibrillation [place]: Normal Intervals: Normal [place], Other (IVCD) QRS: LVH Ischemia: Normal ST segments, Non specific changes. No: ST elevation c/w ischemia, ST depression - Labs Labs: Laboratory Tests 06/17/20 06/17/20 06/18/20 00:15 00:15 00:15 WBC 7.4 RBC 4.41 Hgb 12.8 Hct 40.5 MCV 91.8 MCH 29.0 MCHC 31.6 L RDW 15.2 H Plt Count 255 MPV 8.7 Neut # (Auto) 5.4 Lymph # (Auto) 0.5 L [place] # (Auto) 0.8 Eos # (Auto) 0.5 Baso # (Auto) 0.1 Absolute Nucleated RBC 0.00 Nucleated RBC % 0.0 PT 18.5 H INR 1.7 H Sodium 140 Potassium 4.5 Chloride 109 Carbon Dioxide 19 L Anion Gap 12.0 BUN 41 H Creatinine 2.7 H Estimated GFR (MDRD) 17 L Glucose 107 H Calcium 9.3 Magnesium 2.0 Total Bilirubin 0.3 AST 19 ALT 18 Alkaline Phosphatase 115 Total Protein 7.0 Albumin 3.7 Globulin 3.3 Albumin/Globulin Ratio 1.1 Lipase 43 - Rads (name of study) head CT Radiology: Prelim report reviewed (no ICH nor acute process), See rad report PD MEDICAL DECISION MAKING - ED course Complexity details: reviewed results, re-evaluated patient (improved with time and with meclizine. Able to move head slowly with mild vertigo. no nausea nor vomiting with it. Consider potential central cause, and discussed with pt. She does not want to be hospitalized for further eval, is okay with "most likely" peripheral and says feels like prior episodes.), considered differential (abrupt vertigo with sitting up. Likely peripheral and has nystagmus. On Coumadin though, so consider small bleed or subdural. Can get CT. Also labs. ), d/w patient Departure - Departure Disposition: 01 Home, Self Care Clinical Impression: Acute vertigo with vomiting and inability to stand Condition: Stable Record reviewed to determine appropriate education?: Yes Instructions: ED Vertigo Unspecified Follow-Up: Jane Camacho MD [Primary Care Provider] - Prescriptions: Meclizine [Antivert] 25 mg PO Q8H PRN #20 tablet PRN Reason: Vertigo Ondansetron Odt [Zofran] 4 mg TL Q6H PRN #10 tablet PRN Reason: Nausea / Vomiting Comments: Your CT scan does not show any obvious signs of bleeding swelling or tumors. No obvious signs of stroke. Regarding very small subtle strokes, MRI would be more accurate. This does however sound like peripheral vertigo from the inner ear. That can come from up position change abruptly. Its possible it may be some side effect from the vaccine. At this point I would suggest moving slowly and changing positions slowly to minimize provoking the vertigo. Use meclizine 3 times a day for the dizziness. Add ondansetron if needed for nausea as well. I would anticipate improvement over the next 2 to 3 days. Follow-up with your primary care if not resolved well in that timeframe. Return if worsening.
[2020-06-18 00:21] LABS: BASOPHILS # (AUTO) 0.1 10^3/uL (0.0-0.1); BASOPHILS % (AUTO) 1.5 %; EOSINOPHILS # (AUTO) 0.5 10^3/uL (0.0-0.7); EOSINOPHILS % (AUTO) 6.9 %; HCT - HEMATOCRIT 40.5 % (37.0-47.0); HGB - HEMOGLOBIN 12.8 g/dL (12.0-16.0); LYMPHOCYTES # (AUTO) 0.5 10^3/uL (1.5-3.5); LYMPHOCYTES % (AUTO) 7.3 %; MEAN CORPUSCULAR HGB CONC 31.6 g/dL (32.0-36.0); MEAN CORPUSCULAR VOLUME 91.8 fL (81.0-99.0); MEAN PLATELET VOLUME 8.7 fL (7.9-10.8); MONOCYTES # (AUTO) 0.8 10^3/uL (0.0-1.0); MONOCYTES % (AUTO) 10.2 %; NEUTROPHILS # (AUTO) 5.4 10^3/uL (1.5-6.6); NEUTROPHILS % (AUTO) 73.3 %; PLT - PLATELET COUNT 255 10^3/uL (130-450); RED BLOOD COUNT 4.41 10^6/uL (4.20-5.40); RED CELL DISTRIBUTION WIDTH 15.2 % (12.0-15.0); WHITE BLOOD COUNT 7.4 x10^3/uL (4.8-10.8)
[2020-06-18 00:35] LABS: ALBUMIN 3.7 g/dL (3.2-5.5); ALBUMIN/GLOBULIN RATIO 1.1 (1.0-2.2); BILIRUBIN,TOTAL 0.3 mg/dL (0.2-1.0); CALCIUM 9.3 mg/dL (8.5-10.3); CREATININE 2.7 mg/dL (0.4-1.0); POTASSIUM 4.5 mmol/L (3.5-5.0)
[2020-06-18] MEDS ORDERED: MECLIZINE 12.5 MG TABLET PO STA (02:17)
[2020-06-18] MEDS ORDERED: DEXAMETHASONE 10 MG/ML VIAL IVP STA (02:17)
[2020-06-18] MEDS ORDERED: ONDANSETRON ODT 4 MG Prepack 2 TL PRN (02:18)
[2020-06-18 02:31] LABS: INR 1.7 (0.8-1.2); PT - PROTHROMBIN TIME 18.5 secs (9.9-12.6)
[2020-06-18 03:53] VITALS: BP 115/63
--- NOTE | 2020-06-18 07:32 | CT Report ---
PROCEDURE: HEAD WO INDICATIONS: dizziness/vertigo abrupt TECHNIQUE: Noncontrast 4.5 mm thick angled axial sections acquired from the foramen magnum to the vertex. For r adiation dose reduction, the following was used: automated exposure control, adjustment of mA and/or kV according to patient size. COMPARISON: 01/26/2019 FINDINGS: Image quality: Excellent. CSF spaces: Basal cisterns are patent. No extra-axial fluid collections. The ventricles are symmet deepika in size and shape. Brain: No intracranial bleeds or masses. There is cerebral volume loss for age, with resultant vent ricular and sulcal prominence. There are periventricular and deep white matter chronic small vessel ischemic changes. There is intracranial internal carotid artery and vertebral artery atherosclerosis . Skull and face: Calvarium and visualized facial bones appear intact, without suspicious lesions. Sinuses: Visualized sinuses and mastoids are clear. IMPRESSION: No acute intracranial disease process. Reviewed by: Lilia Walker MD, PhD on 06/18/2020 7:30 AM PDT Approved by: Lilia Walker MD, PhD on 06/18/2020 7:30 AM PDT Station ID: [id number]
== END 2020-06-18 03:53 | disposition home or self-care (01) ==
LOC: EDUNIT# → ED 23:32
DX: R42 Dizziness and giddiness (principal); R11.2 Nausea with vomiting, unspecified; I48.91 Unspecified atrial fibrillation; Z79.01 Long term (current) use of anticoagulants; I11.0 Hypertensive heart disease with heart failure; I50.9 Heart failure, unspecified; I73.9 Peripheral vascular disease, unspecified
CPT/HCPCS: 36415; 70450; 80053; 83690; 83735; 85025; 85610; 93005; 96374; 99284; A9270

== ENCOUNTER 2020-06-22 13:41 | Outpatient (CLI) | payer MEDICARE, OTHER | END 2020-06-22 13:42 | disposition home or self-care (01) | LOC: LAB.N 13:41 | PROVIDERS: ATTEND Family Medicine | DX: E87.6 Hypokalemia (principal); I48.91 Unspecified atrial fibrillation | CPT/HCPCS: 36415; 85610 ==

== ENCOUNTER 2020-07-06 10:50 | Outpatient (CLI) | payer MEDICARE, OTHER ==
[2020-07-06 18:15] LABS: BASOPHILS # (AUTO) 0.1 10^3/uL (0.0-0.1); BASOPHILS % (AUTO) 1.1 %; EOSINOPHILS # (AUTO) 0.4 10^3/uL (0.0-0.7); EOSINOPHILS % (AUTO) 5.6 %; HCT - HEMATOCRIT 39.3 % (37.0-47.0); HGB - HEMOGLOBIN 12.1 g/dL (12.0-16.0); LYMPHOCYTES # (AUTO) 0.4 10^3/uL (1.5-3.5); LYMPHOCYTES % (AUTO) 6.5 %; MEAN CORPUSCULAR HEMOGLOBIN 28.7 pg (27.0-31.0); MEAN CORPUSCULAR HGB CONC 30.8 g/dL (32.0-36.0); MEAN CORPUSCULAR VOLUME 93.1 fL (81.0-99.0); MONOCYTES # (AUTO) 0.6 10^3/uL (0.0-1.0); MONOCYTES % (AUTO) 10.2 %; NEUTROPHILS # (AUTO) 4.7 10^3/uL (1.5-6.6); NEUTROPHILS % (AUTO) 76.3 %; PLT - PLATELET COUNT 233 10^3/uL (130-450); RED BLOOD COUNT 4.22 10^6/uL (4.20-5.40); RED CELL DISTRIBUTION WIDTH 15.9 % (12.0-15.0); WHITE BLOOD COUNT 6.2 x10^3/uL (4.8-10.8)
[2020-07-06 18:25] LABS: CALCIUM 9.7 mg/dL (8.5-10.3); CREATININE 2.3 mg/dL (0.4-1.0); MAGNESIUM 2.1 mg/dL (1.7-2.8); PHOSPHORUS 4.1 mg/dL (2.5-4.6); POTASSIUM 3.7 mmol/L (3.5-5.0)
== END 2020-07-06 10:51 | disposition home or self-care (01) ==
LOC: LAB.N 10:50
PROVIDERS: ATTEND Internal Medicine Nephrology
DX: I48.91 Unspecified atrial fibrillation (principal); N18.4 Chronic kidney disease, stage 4 (severe)
CPT/HCPCS: 36415; 80048; 82306; 83735; 83970; 84100; 85025; 85610

== ENCOUNTER 2020-07-13 16:17 | Outpatient (CLI) | payer MEDICARE, OTHER | END 2020-07-13 16:18 | disposition home or self-care (01) | LOC: LAB.N 16:17 | PROVIDERS: ATTEND Family Medicine | DX: E87.6 Hypokalemia (principal); I48.91 Unspecified atrial fibrillation | CPT/HCPCS: 36415; 84132; 85610 ==

== ENCOUNTER 2020-07-19 | Outpatient (CLI) | payer MEDICARE, OTHER | END 2020-07-19 08:18 | disposition EMS.NT ==

== ENCOUNTER 2020-07-27 15:28 | Outpatient (CLI) | payer MEDICARE, OTHER | END 2020-07-27 15:29 | disposition home or self-care (01) | LOC: LAB.N 15:28 | PROVIDERS: ATTEND Family Medicine | DX: I48.91 Unspecified atrial fibrillation (principal) | CPT/HCPCS: 36416; 85610 ==

== ENCOUNTER 2020-08-17 08:00 | Outpatient (CLI) | payer MEDICARE, OTHER | END 2020-08-17 23:59 | disposition home or self-care (01) | LOC: LAB.N 08:00 | PROVIDERS: ATTEND Family Medicine | DX: I48.91 Unspecified atrial fibrillation (principal) | CPT/HCPCS: 36416; 85610 ==

== ENCOUNTER 2020-08-31 11:31 | Outpatient (CLI) | payer MEDICARE, OTHER ==
[2020-08-31 18:21] LABS: BASOPHILS # (AUTO) 0.1 10^3/uL (0.0-0.1); BASOPHILS % (AUTO) 1.6 %; EOSINOPHILS # (AUTO) 0.3 10^3/uL (0.0-0.7); EOSINOPHILS % (AUTO) 4.3 %; HCT - HEMATOCRIT 38.9 % (37.0-47.0); HGB - HEMOGLOBIN 12.6 g/dL (12.0-16.0); LYMPHOCYTES # (AUTO) 0.3 10^3/uL (1.5-3.5); LYMPHOCYTES % (AUTO) 5.7 %; MEAN CORPUSCULAR HEMOGLOBIN 30.6 pg (27.0-31.0); MEAN CORPUSCULAR HGB CONC 32.4 g/dL (32.0-36.0); MEAN CORPUSCULAR VOLUME 94.4 fL (81.0-99.0); MEAN PLATELET VOLUME 10.3 fL (7.9-10.8); MONOCYTES # (AUTO) 0.7 10^3/uL (0.0-1.0); MONOCYTES % (AUTO) 11.7 %; NEUTROPHILS # (AUTO) 4.4 10^3/uL (1.5-6.6); NEUTROPHILS % (AUTO) 76.4 %; PLT - PLATELET COUNT 225 10^3/uL (130-450); RED BLOOD COUNT 4.12 10^6/uL (4.20-5.40); RED CELL DISTRIBUTION WIDTH 14.7 % (12.0-15.0); WHITE BLOOD COUNT 5.8 x10^3/uL (4.8-10.8)
[2020-08-31 18:49] LABS: CALCIUM 9.6 mg/dL (8.5-10.3); CREATININE 2.4 mg/dL (0.4-1.0); MAGNESIUM 2.3 mg/dL (1.7-2.8); PHOSPHORUS 3.7 mg/dL (2.5-4.6); POTASSIUM 3.6 mmol/L (3.5-5.0)
== END 2020-08-31 11:32 | disposition home or self-care (01) ==
LOC: LAB.N 11:31
DX: N18.4 Chronic kidney disease, stage 4 (severe) (principal); I48.91 Unspecified atrial fibrillation
CPT/HCPCS: 36415; 80048; 82306; 83735; 83970; 84100; 85025; 85610

== ENCOUNTER 2020-08-31 23:41 | Outpatient (CLI) | payer MEDICARE, OTHER | END 2020-08-31 23:42 | disposition critical access hospital (66) | LOC: EMS 23:41 | DX: Z04.3 Encounter for examination and observation following other accident (principal) | CPT/HCPCS: A0425; A0429 ==

== ENCOUNTER 2020-08-31 23:58 | Emergency (ER) | payer MEDICARE, OTHER ==
[2020-09-01] MEDS ORDERED: BACITRACIN ZINC OINT 1 PACKET TOP STA (00:09)
[2020-09-01] MEDS ORDERED: TETANUS/DIPHTHERIA/PERTUSSIS 0.5 ML SYRINGE IM ONE (00:10)
--- OUTSIDE RECORDS SUMMARY | 2020-09-01 00:11 | EXTERNAL MEDICAL SUMMARY RPT | Continuity of Care Document ---
:1940 Demographics Phone Unavailable Preferred Language Unknown Marital Status Unknown Presybeterian Affiliation Unknown Race Unknown Ethnic Group Unknown Author Organization [facility] Address [address] [place] [address] Phone Allergies Encounters Medications Problems Results
[2020-09-01] MEDS ORDERED: ACETAMINOPHEN 325 MG TABLET PO STA (01:19)
--- NOTE | 2020-09-01 01:33 | ED Physician Documentation ---
History of Present Illness - Stated complaint Stated Complaint: GLF, HIT HEAD - Chief complaint Chief Complaint: Trauma Hd/Nk - History obtained from History obtained from: Patient - Additonal information Additional information: 79-year-old woman with past medical history of A. fib on Coumadin presents status post fall backward, losing her balance while trying to load the laundry, hitting the back of her head on the right side without LOC. Upon EMS arrival she was sitting in a chair in no acute distress with GCS 15. Patient states that she has no other injuries except for laceration to the right posterior occiput. Normally she is ambulatory independently or with a cane. denies preceding lightheadedness, stating it was a mechanical fall. Review of Systems Ten Systems: 10 systems reviewed and negative Constitutional: denies: Fever, Fatigue Eyes: denies: Loss of vision, Decreased vision GI: denies: Nausea Neurologic: reports: Head injury. denies: Headache, LOC PD PAST MEDICAL HISTORY - Past Medical History Past Medical History: Yes Cardiovascular: Congestive heart failure, Hypertension, High cholesterol, Coronary artery disease, Peripheral Vascular Disease, Angina, Atrial fibrillation Respiratory: Asthma, Shortness of breath, Other Neuro: Headaches Endocrine/Autoimmune: None, HyPOthyroidism, Other GI: GI bleed, Ulcers : Renal insuffiency HEENT: None Psych: Anxiety, Eating disorder Musculoskeletal: Osteoarthritis, Rheumatoid arthritis Derm: None - Past Surgical History Past Surgical History: Yes General: Bowel surgery Ortho: Knee replacement /[employer]: Hysterectomy Cardiovascular: Coronary stent HEENT: Cataracts - Present Medications Home Medications: Ambulatory Orders Medication Instructions Recorded Confirmed Simvastatin 20 mg PO QPM 06/05/14 06/18/20 Hydroxychloroquine Sulfate 200 mg PO DAILY 02/17/18 06/18/20 Warfarin Sodium 1.5 mg PO QDWARFARIN 02/17/18 06/18/20 Biotin 1,000 mcg PO DAILY 02/18/18 02/11/20 Cholecalciferol [Vitamin D3] 5,000 unit PO DAILY capsule 02/19/18 06/18/20 Furosemide 20 mg PO DAILY 04/23/18 06/18/20 Isosorbide Mononitrate ER [Imdur] 30 mg PO BID 04/23/18 02/11/20 carvediloL [Carvedilol] 6.25 mg PO BID 04/23/18 02/11/20 Levothyroxine Sodium 50 mcg PO DAILY 02/11/20 06/18/20 Potassium Chloride 40 meq PO DAILY 02/11/20 02/11/20 Ferrous Sulfate [Feosol] 325 mg PO DAILYWM #30 tablet 02/12/20 06/18/20 Meclizine [Antivert] 25 mg PO Q8H PRN #20 tablet 06/18/20 Ondansetron Odt [Zofran] 4 mg TL Q6H PRN #10 tablet 06/18/20 - Allergies Allergies/Adverse Reactions: Allergies Allergy/AdvReac Type Severity Reaction Status Date / Time Penicillins Allergy Anaphylaxis Verified 06/17/20 23:40 shellfish derived Allergy Hives Verified 06/17/20 23:40 tree nut Allergy Respiratory Verified 06/17/20 23:40 Bleach (Sodium Hypochlorite) AdvReac Respiratory Verified 06/17/20 23:40 codeine AdvReac Hallucinati Verified 06/17/20 23:40 ons - Social History Does the pt smoke?: No Smoking Status: Never smoker Does the pt drink ETOH?: No Does the pt have substance abuse?: No - Immunizations Immunizations are current?: No Immunizations: TDAP current <10years - POLST Patient has POLST: Yes PD ED PE NORMAL - Vitals Vital signs reviewed: Yes - General General: Alert and oriented X 3, No acute distress, Well developed/nourished - HEENT HEENT: PERRL, EOMI, Ears normal, Moist mucous membranes, Pharynx benign, Other (Right occipital laceration to scalp. Head otherwise atraumatic.) - Neck Neck: Supple, no meningeal sign, No bony TTP - Cardiac Cardiac: RRR, Other (chest wall stable nontender) - Respiratory Respiratory: No respiratory distress, Clear bilaterally - Abdomen Abdomen: Non tender, Non distended, Other (pelvis stable. ) - Back Back: No spinal TTP - Derm Derm: Normal color - Extremities Extremities: No deformity, Normal ROM s pain - Neuro Neuro: Alert and oriented X 3 - Psych Psych: Normal mood, Normal affect Results - Vitals Vitals: Vital Signs - 24 hr 09/01/20 00:01 Temperature 36.6 C Heart Rate 80 Respiratory 18 Rate Blood Pressure 160/97 H O2 Saturation 100 Oxygen O2 Source [] Room air O2 Source Room air Procedures - Laceration (location) Scalp right Posterior Length in cm: 3 Wound type: Linear Neurovascular status: Sensory intact, Motor intact, Vascular intact Wound preparation: Irrigated copiously NS Skin layer closure: [place] (3) Other: Patient tolerated well, No complications, Neurovascular intact, Dressing applied, Tetanus booster given PD MEDICAL DECISION MAKING - ED course ED course: 79-year-old woman presented status post mechanical fall without apparent injury on CT imaging or x-ray. Her small right occipital laceration was repaired without incident. Return precautions given. She will follow up with her primary doctor. Departure - Departure Disposition: 01 Home, Self Care Clinical Impression: Laceration of scalp, Fall, Head injury Condition: Good Instructions: ED Laceration Scalp Stitch Or Stap Comments: You were seen in the emergency department for a head injury after a fall. 3 marlo were placed on your head after cleaning. You will need to have those removed in 7-10 days. Please monitor for any signs of infection. Please return to the emergency department if you have any signs of concussion including vision changes, confusion, nausea or vomiting, severe headache, lightheadedness. Return to the emergency department if you have any new or worsening symptoms or other concerns.
[2020-09-01 05:05] VITALS: BP 139/63
--- NOTE | 2020-09-01 07:20 | CT Report ---
PROCEDURE: HEAD WO INDICATIONS: Fall with head trauma, loss of consciousness TECHNIQUE: Noncontrast 4.5 mm thick angled axial sections acquired from the foramen magnum to the vertex. For r adiation dose reduction, the following was used: automated exposure control, adjustment of mA and/or kV according to patient size. COMPARISON: 06/18/2020 FINDINGS: Image quality: Excellent. CSF spaces: Basal cisterns are patent. No extra-axial fluid collections. Ventricles are normal in size and shape. Brain: There is global cerebral volume loss with passive expansion of the ventricles and extra-axial spaces. Patchy hypoattenuation in the cerebral hemispheric white matter consistent with chronic micr ovascular ischemic change in a patient of this age. No evidence of acute intracranial hemorrhage. Gra y-white matter differentiation is maintained, without CT evidence of an acute large territory infarct . Skull and face: No fracture of the calvarium or skull base demonstrated. No gross orbital abnormality . Sinuses: Visualized portions of the mastoid air cells and paranasal sinuses are predominantly clear. IMPRESSION: No acute intracranial abnormality. No significant change from preliminary report. Reviewed by: Edouard Reyes MD on 09/01/2020 7:18 AM PDT Approved by: Edouard Reyes MD on 09/01/2020 7:18 AM PDT Station ID: [id number]
--- NOTE | 2020-09-01 07:23 | CT Report ---
PROCEDURE: CERVICAL SPINE WO INDICATIONS: Trauma, fall TECHNIQUE: Noncontrast 3 mm thick sections acquired from the skull base to the T4 level. Sagittal and coronal r eformats were then constructed. For radiation dose reduction, the following was used: automated exp osure control, adjustment of mA and/or kV according to patient size. COMPARISON: None. FINDINGS: Image quality: Excellent. Bones: No fracture identified. Alignment is within normal limits. No subluxation or dislocation demon strated. There are moderate multilevel spondylitic and spondyloarthropathic changes. Soft tissues: Prevertebral and paraspinous soft tissues demonstrate no acute finding in the absence o f IV contrast. Extensive atherosclerosis. IMPRESSION: No CT evidence of acute traumatic cervical spine injury. Reviewed by: Edouard Reyes MD on 09/01/2020 7:22 AM PDT Approved by: Edouard Reyes MD on 09/01/2020 7:22 AM PDT Station ID: [id number]
--- NOTE | 2020-09-01 08:39 | XRAY Report ---
PROCEDURE: Chest 1 View X-Ray INDICATIONS: Trauma, fall from standing TECHNIQUE: One view of the chest was acquired. COMPARISON: 02/18/2020 FINDINGS: Surgical changes and devices: None. Lungs and pleura: No pleural effusions or pneumothorax. And no acute consolidation or focal air spac e opacity. Unchanged chronically coarsened interstitial markings. Mediastinum: Mediastinal contours appear normal. Heart size is normal. Bones and chest wall: No suspicious bony lesions. Overlying soft tissues appear unremarkable. IMPRESSION: No acute process demonstrated. Reviewed by: Edouard Reyes MD on 09/01/2020 8:38 AM PDT Approved by: Edouard Reyes MD on 09/01/2020 8:38 AM PDT Station ID: [id number]
--- NOTE | 2020-09-01 08:39 | XRAY Report ---
PROCEDURE: Pelvis 1 View INDICATIONS: Trauma, fall from standing on coumadin TECHNIQUE: Single view of the pelvis acquired. COMPARISON: 02/18/2020 CT of the abdomen and pelvis. FINDINGS: Bones: No fractures or dislocations. No suspicious bony lesions. Degenerative lacunar changes are similar to the prior study. Soft tissues: Visualized bowel gas pattern is normal. No suspicious soft tissue calcifications. IMPRESSION: No acute fracture. Reviewed by: Edouard Reyes MD on 09/01/2020 8:37 AM PDT Approved by: Edouard Reyes MD on 09/01/2020 8:37 AM PDT Station ID: [id number]
== END 2020-09-01 04:45 | disposition home or self-care (01) ==
LOC: EDUNIT# → SUPCPDRO 23:58 → ED 23:58
DX: S01.01XA Laceration without foreign body of scalp, initial encounter (principal); W18.30XA Fall on same level, unspecified, initial encounter; Y93.E2 Activity, laundry; Y92.009 Unspecified place in unspecified non-institutional (private) residence as the place of occurrence of the external cause; N18.4 Chronic kidney disease, stage 4 (severe); I48.91 Unspecified atrial fibrillation; Z79.01 Long term (current) use of anticoagulants; Z23 Encounter for immunization
CPT/HCPCS: 36415; 70450; 71045; 72125; 72170; 80048; 82306; 83735; 83970; 84100; 85025; 85610; 90715; A9270; 12002; 90471; 99282; 99284

== ENCOUNTER 2020-09-08 13:25 | Outpatient (CLI) | payer MEDICARE, OTHER | END 2020-09-08 13:26 | disposition home or self-care (01) | LOC: LAB.N 13:25 | PROVIDERS: ATTEND Family Medicine | DX: I48.91 Unspecified atrial fibrillation (principal) | CPT/HCPCS: 36416; 85610 ==

== ENCOUNTER 2020-09-11 10:28 | Outpatient (CLI) | payer MEDICARE, OTHER ==
[2020-09-11 17:48] LABS: BASOPHILS # (AUTO) 0.1 10^3/uL (0.0-0.1); BASOPHILS % (AUTO) 1.3 %; EOSINOPHILS # (AUTO) 0.3 10^3/uL (0.0-0.7); EOSINOPHILS % (AUTO) 4.9 %; HCT - HEMATOCRIT 37.1 % (37.0-47.0); HGB - HEMOGLOBIN 11.7 g/dL (12.0-16.0); LYMPHOCYTES # (AUTO) 0.3 10^3/uL (1.5-3.5); LYMPHOCYTES % (AUTO) 5.2 %; MEAN CORPUSCULAR HEMOGLOBIN 30.2 pg (27.0-31.0); MEAN CORPUSCULAR HGB CONC 31.5 g/dL (32.0-36.0); MEAN CORPUSCULAR VOLUME 95.6 fL (81.0-99.0); MEAN PLATELET VOLUME 9.9 fL (7.9-10.8); MONOCYTES # (AUTO) 0.6 10^3/uL (0.0-1.0); MONOCYTES % (AUTO) 10.3 %; NEUTROPHILS # (AUTO) 4.6 10^3/uL (1.5-6.6); PLT - PLATELET COUNT 210 10^3/uL (130-450); RED BLOOD COUNT 3.88 10^6/uL (4.20-5.40); WHITE BLOOD COUNT 5.9 x10^3/uL (4.8-10.8)
[2020-09-11 18:13] LABS: ALBUMIN/GLOBULIN RATIO 1.5 (1.0-2.2); ALKALINE PHOSPHATASE 74 IU/L (42-121); ALT ALANINE AMINOTRANSFERASE 19 IU/L (10-60); AST ASPARTATE AMINOTRANSFERASE 21 IU/L (10-42); BILIRUBIN,TOTAL 1.2 mg/dL (0.2-1.0); BUN - BLOOD UREA NITROGEN 38 mg/dL (6-20); CALCIUM 9.1 mg/dL (8.5-10.3); CARBON DIOXIDE - CO2 23 mmol/L (21-32); CHLORIDE 103 mmol/L (101-111); CHOL/HDL RATIO 2.3 (<4.4); CHOLESTEROL 192 mg/dL; CREATININE 2.7 mg/dL (0.4-1.0); GFR - MDRD 17 (>89); GLUCOSE 82 mg/dL (70-100); HDL CHOLESTEROL 83 mg/dL; IRON 77 ug/dL (28-170); LDL CHOLESTEROL,CALCULATED 86 mg/dL; POTASSIUM 4.1 mmol/L (3.5-5.0); SODIUM 140 mmol/L (135-145); TOTAL PROTEIN 6.6 g/dL (6.7-8.2); TRIGLYCERIDES 116 mg/dL; VLDL CHOLESTEROL 23 mg/dL
[2020-09-11 18:30] LABS: THYROID STIMULATING HORMONE 2.91 uIU/mL (0.34-5.60)
[2020-09-11 18:32] LABS: FREE T4 (FREE THYROXINE) 1.71 ng/dL (0.58-1.64)
[2020-09-11 18:35] LABS: FERRITIN 653.7 ng/mL (11.0-306.8)
== END 2020-09-11 10:29 | disposition home or self-care (01) ==
LOC: LAB.N 10:28
PROVIDERS: ATTEND Family Medicine
DX: I25.10 Atherosclerotic heart disease of native coronary artery without angina pectoris (principal); E03.9 Hypothyroidism, unspecified; E87.6 Hypokalemia; K21.9 Gastro-esophageal reflux disease without esophagitis; E78.5 Hyperlipidemia, unspecified; I12.9 Hypertensive chronic kidney disease with stage 1 through stage 4 chronic kidney disease, or unspecified chronic kidney disease; N18.4 Chronic kidney disease, stage 4 (severe)
CPT/HCPCS: 36415; 80053; 80061; 82728; 83540; 83721; 84439; 84443; 85025